=== PATIENT | male | born 1950 | race Caucasian/White ===

== ENCOUNTER 2016-08-14 05:44 | Day surgery (SDC) | payer MEDICARE, BC ==
[2016-08-14] MEDS ORDERED: Lactated Ringers 1,000 ML IV SCH (06:30)
[2016-08-14] MEDS ORDERED: EPINEPHrine 1:1000 1 MG/ML SDV ONE (06:59)
[2016-08-14] MEDS ORDERED: Bupivacaine 0.5%/EPINEPHrine 1:200,000 50 ML MDV ONE (06:59)
[2016-08-14] MEDS ORDERED: Midazolam 1 MG/ML 2 ML SDV ONE (07:07)
[2016-08-14] MEDS ORDERED: fentaNYL 250 MCG/5 ML SDV ONE (07:07)
[2016-08-14] MEDS ORDERED: Rocuronium 50 MG/5 ML Vial ONE (07:07)
[2016-08-14] MEDS ORDERED: Propofol 200 MG/20 ML SDV ONE (07:07)
[2016-08-14] MEDS ORDERED: Ondansetron 4 MG/2 ML SDV ONE (07:07)
[2016-08-14] MEDS ORDERED: Succinylcholine/Normal Saline 200 MG/10 ML Syringe ONE (07:07)
[2016-08-14] MEDS ORDERED: Dexamethasone 4 MG/ML SDV ONE (07:07)
[2016-08-14] MEDS ORDERED: Neostigmine Methylsulfate 1 MG/ML 5 ML Syringe ONE (07:08)
[2016-08-14] MEDS ORDERED: Clindamycin Phosphate 900 MG in Sodium Chloride 0.9% 100 ML IV ONE (07:30)
[2016-08-14] MEDS ORDERED: Hydrocortisone Sodium Succinate 100 MG/2 ML SDV ONE (07:50)
[2016-08-14] MEDS ORDERED: Lactated Ringers 1,000 ML ONE (08:56)
[2016-08-14] MEDS ORDERED: Povidone-Iodine 10% Soln 118.25 ML Bottle ONE (09:40)
--- NOTE | 2016-08-14 11:58 | OR ---
DATE OF PROCEDURE: 08/14/2016 PREOPERATIVE DIAGNOSIS: Left rotator cuff tear and proximal biceps rupture and impingement POSTOPERATIVE DIAGNOSIS: Left rotator cuff tear and proximal biceps rupture and impingement syndrome. PROCEDURE: Left shoulder arthroscopy with subacromial decompression, open rotator cuff tear repair, and proximal biceps tenodesis. ANESTHESIA: General endotracheal intubation. FLUID: Lactated Ringer solution. ESTIMATED BLOOD LOSS: 25 mL. COMPLICATIONS: None. SPECIMEN: None. DISCHARGE DISPOSITION: Stable to PACU. INSTRUMENTATION: SpeedBridge 4.75 x 19.5 mm BioComposite SwiveLock anchors and a BioComposite distal biceps repair, but even though we are doing a proximal biceps repair. HISTORY AND INDICATIONS: The patient was seen preoperatively in the clinic. He actually got his hand caught in a gate and then suffered an injury to his left shoulder. We did try nonoperative treatment including injections. This did not help, even with physical therapy. We then obtained an MRI, confirming the above-mentioned diagnosis. Risks and benefits of the procedure were explained to the patient. Informed consent was obtained. DESCRIPTION OF PROCEDURE: The patient was seen preoperatively by myself and the anesthesia staff in the preop holding area where the operative site was marked. He was brought to the operative suite by the anesthesia staff where general anesthesia was administered. He was placed into a beach chair position. All extremities were found to be well padded. The left upper extremity was then prepped and draped in a sterile manner. Time-out was called identifying the correct patient, the correct procedure, the correct site, and antibiotics for an appropriate period of time. The clavicle and acromion were marked as well as the coracoid process. A posterior portal was then made and a lateral portal was made to enter the subacromial space. A shaver was used to remove any bursal tissue. A wand was used to remove bursal tissue off the acromion. I then used a bur to shave off the inferior margin of the acromion. Bleeding was controlled with the cautery wand. I then entered the joint with the trocar, and then using a spinal needle, I identified an area to enter the joint. The biceps tendon was absent within the joint. The subscapularis was identified and found to be in good position. The humeral head had a good articular surface. I then removed the scope and then closed my portals with 3-0 nylon in a horizontal mattress manner. I then identified the anterior lateral edge of the acromion and then carried an incision 5 mm distal. I then carried the incision through the biceps between the raphe, between the anterior and middle thirds of the deltoid, and I carried this 4 cm as to avoid injuring the axillary nerve and then placed a stay suture distally. I then was able to easily identify the rotator cuff. I used a Boston retractor at times as well as a the Gelpi for visualization. I placed my 2 medial anchors and then using a free needle rimmed those through the tendon and then approximated where I would like to put my lateral row of anchors. I then placed the lateral row of anchors and then closed the rotator cuff in a double row fashion. I then used one of the sutures that was not used on the anchor, and using a free needle, I placed several horizontal mattress sutures through the edge of the rotator cuff to its insertion along its edge where there was some extra cuff tissue just for more of a marginal convergence type repair as well as the strengthen our rotator cuff repair. After this had been accomplished, we then closed the deltoid with 2-0 Vicryl sutures in an interrupted [id number] manner and then closed that incision with 2-0 subcutaneous Vicryl sutures. I then focused on our biceps tenodesis. I made an incision over the edge of the inferior margin of the pectoralis major distally and then controlled both bleeding with Bovie electrocautery. I then used a Boston retractors for the deep tissue retraction and then used an Army-Ozone to superiorize the pectoralis major to its inferior border. I then used a Bovie to dissect through the inferior margin of the pectoralis for approximately 1 cm as is commonly done in a total shoulder for visualization. I was able to palpate the biceps tendon and then after making sure that this in fact ran up into the groove for that was not another structure coffee maker servicer the tendon bringing it out of the wound and then placed a stay suture with a free needle. I was unable to release the biceps tendon at that portion, so I very carefully used the Barrett scissors and went up along the tendon length anteriorly and posteriorly to free it up and then cut it more proximally. I brought this out of the wound and then using a Beath needle placed whipstitches in the biceps tendon. I then sized a 6 mm. We then bovied an area in the distal bicipital groove. I then placed a guidewire through this portion bicortically and then removed the guidewire and then drilled a 6 mm hole with the reamer through the anterior cortex. I then placed our strands from the Beath needle through the biceps repair button as instructed in the technique, and then under tension using the guide placed it through the far cortex and put it under tension. This provided good fixation. While under tension with one strand, I then took a free needle with the other strand and then sutured it to the biceps tendon at its insertion into the anterior cortex and then cut that. I then copiously irrigated with saline and then closed with 2-0 Vicryl subcutaneous sutures. We then washed the wound with wet and dry laps and then placed Dermabond and then Betadine-soaked Adaptic followed by sponges and Medipore tape. The patient was then allowed to awaken from general anesthesia and taken to the PACU in stable condition. Lennox Lopez DO /[id number] MTDD
[2016-08-14 12:39] VITALS: BP 143/94
[2016-08-14] MEDS ORDERED: Acetaminophen/oxyCODONE 325-5 MG Tab PO ONE (13:40)
== END 2016-08-14 14:55 | disposition home or self-care (01) ==
LOC: JP.SDS 05:44
PROVIDERS: ATTEND Orthopaedic Surgery
DX: M75.102 Unspecified rotator cuff tear or rupture of left shoulder, not specified as traumatic (principal); M25.312 Other instability, left shoulder; S46.112A Strain of muscle, fascia and tendon of long head of biceps, left arm, initial encounter; E78.00 Pure hypercholesterolemia, unspecified; J44.9 Chronic obstructive pulmonary disease, unspecified; J45.909 Unspecified asthma, uncomplicated; K21.9 Gastro-esophageal reflux disease without esophagitis; Z79.82 Long term (current) use of aspirin; Z79.899 Other long term (current) drug therapy; N42.9 Disorder of prostate, unspecified; Z88.0 Allergy status to penicillin; X58.XXXA Exposure to other specified factors, initial encounter; Z88.8 Allergy status to other drugs, medicaments and biological substances
CPT/HCPCS: 23410; 29826; 29828; 36415; 80053; 85027; A9270; C1713; J0171; J1100; J1720; J2250; J2405; J2704; J3010; J7120; 23430

== ENCOUNTER 2016-08-21 17:18 | Emergency (ER) | payer MEDICARE, BC ==
[2016-08-21] MEDS ORDERED: Sodium Chloride 0.9% 10 ML Syringe FLUSH PRN (18:18)
--- NOTE | 2016-08-21 18:35 | EDM.PDOC ---
ED HPI RENAL/ - General Chief Complaint: Genitourinary Problem Stated Complaint: UNABLE TO URINATE Time Seen by Provider: 08/21/16 18:20 Source: Reports: Patient, Old records, RN notes reviewed History Limitations: Reports: No limitations - History of Present Illness INITIAL COMMENTS - FREE TEXT/NARRATIVE: Brought in by his Chief complaint Chills, difficulty urinating HPI 65-year-old male with history of prostatic enlargement, treated with oral prostatic medications but no prostate surgery, normally has seen in emergency every 30-60 minutes. However since midnight, he's had lot more difficulty urinating, if he forces urine and he cannot go at all. No dysuria, but he continues to have frequency and urgency and incomplete emptying. He is 1 week post left rotator cuff surgery repair and bicipital tendon repair, injured in the accident in June of this year. No problems with the surgery, he's been taking his oral pain medications one every 6 hours and the pain has been improving. However last night was time for dressing change which was considerably difficult because of the appearance of the tape. The wound itself appeared to be dry there was no foul drainage and the pain is minimal at the incision although there is a lot of discomfort with removing the tape. A vigorous he got upset from the stress of removing the tape. During the night he vomited multiple times, last vomited this morning, decreased appetite all day although he's been able to drink fluids. No chills this evening. Has chronic cough, feels a bit more short of breath than usual. His post be on oxygen all the time but generally uses at night only during the day when he feels the need to. No leg pain or swelling. No cold symptoms Notes some lightheadedness and feeling a bit weak when he is up and walking around this evening. Has had for kidney stones previously all passed spontaneously some at home and some with medication - Related Data Allergies/ADRs: Allergies Allergy/AdvReac Type Severity Reaction Status Date / Time hydrocodone Allergy Itching Verified 08/21/16 18:04 Penicillins Allergy Rash Verified 08/21/16 18:04 shrimp Allergy Nausea and Verified 08/21/16 18:04 Vomiting ibuprofen AdvReac Nausea Verified 08/21/16 18:04 lansoprazole [From Prevacid] AdvReac Diarrhea Verified 08/21/16 18:04 ranitidine HCl [From Zantac] AdvReac Diarrhea Verified 08/21/16 18:04 perch Allergy Nausea and Uncoded 08/21/16 18:04 Vomiting pickle weinstein Allergy Nausea and Uncoded 08/21/16 18:04 Vomiting walleye Allergy Nausea and Uncoded 08/21/16 18:04 Vomiting Home Meds: Home Meds Aspirin 650 mg PO ASDIRECTED PRN 05/06/13 [History] Budesonide/Formoterol [Symbicort 160-4.5 MCG] 2 puff INH BID 05/06/13 [History] Fexofenadine [Purnima] 60 mg PO DAILY 05/06/13 [History] Furosemide [Lasix] 20 mg PO DAILY 05/06/13 [History] Levalbuterol HCl [Xopenex] 1.25 ampule NEB Q4HRRT PRN 05/06/13 [History] Montelukast [Singulair] 10 mg PO DAILY 05/06/13 [History] Multivitamin [Multi Vitamin Daily] 1 each PO DAILY 05/06/13 [History] Naproxen Sodium [Aleve] 220 mg PO Q12H PRN 05/06/13 [History] Terazosin [Hytrin] 4 mg PO BEDTIME 05/06/13 [History] predniSONE [Prednisone] 10 mg PO DAILY 05/06/13 [History] Albuterol Sulfate [Proair Hfa] 2 puff IH QID 08/13/16 [History] Albuterol [Proventil Neb Soln] 2.5 mg IH Q4H PRN 08/13/16 [History] Doxycycline [Doxycycline Hyclate] 100 mg PO ASDIRECTED 08/13/16 [History] Esomeprazole [NexIUM] 20 mg PO DAILY 08/13/16 [History] Gluc 2KCl/Chondr/Narendra Hy/Hy Ac [Glucosamine & Chondroitin Cap] 1 tab PO DAILY [History] Oxybutynin Chloride [Ditropan Xl] 5 mg PO DAILY 08/13/16 [History] Testosterone Cypionate 200 mg IM ASDIRECTED 08/13/16 [History] Umeclidinium [place] [Incruse Ellipta] 1 puff IH DAILY 08/13/16 [History] Sulfamethoxazole/Trimethoprim [Bactrim Ds Tablet] 1 each PO BID #20 tablet 08/21 [Rx] Past Medical History HEENT History: Reports: Allergic rhinitis, Cataract, Impaired vision Cardiovascular History: Reports: Arrhythmia, High cholesterol Respiratory History: Reports: Asthma, COPD Gastrointestinal History: Reports: Colon polyp, GERD, Other (see below) Other Gastrointestinal History: acid reflux Genitourinary History: Reports: Prostate disorder, Renal calculus Musculoskeletal History: Reports: Fracture, Other (see below) Other Musculoskeletal History: wrist fx r great toe fx left shoulder Dermatologic History: Reports: Eczema - Infectious Disease History Infectious Disease History: Reports: Chicken pox, Measles, Mumps, Shingles - Past Surgical History HEENT Surgical History: Reports: Tonsillectomy Cardiovascular Surgical History: Reports: None Respiratory Surgical History: Reports: None GI Surgical History: Reports: None, Colonoscopy, EGD, Hernia, abdominal, Hernia , inguinal Male Surgical History: Reports: None Musculoskeletal Surgical History: Reports: Amputation, Shoulder surgery, Other ( see below) Other Musculoskeletal Surgeries/Procedures:: l MIDDLE FINGER AMPUTATION Dermatological Surgical History: Reports: None Social & Family History - Tobacco Use Smoking Status *Q: Former Smoker Years of Tobacco use: 20 Packs/Tins Daily: 1 Used Tobacco, but Quit: Yes Month Tobacco Last Used: May Hand Smoke Exposure: No - Caffeine Use Caffeine Use: Reports: Coffee - Alcohol Use Days Per Week of Alcohol Use: 2 Number of Drinks Per Day: 2 Total Drinks Per Week: 4 - Recreational Drug Use Recreational Drug Use: No ED ROS GENERAL - Review of Systems Review Of Systems: See Below Constitutional: Reports: fever, chills, weakness, decreased appetite. Denies: diaphoresis HEENT: Reports: No symptoms Respiratory: Reports: Shortness of Breath, Wheezing, Cough Cardiovascular: Reports: No symptoms Endocrine: Reports: no symptoms GI/Abdominal: Reports: Nausea, Vomiting. Denies: Abdominal pain, Diarrhea : Reports: frequency, urgency, urinary retention, other (Hesitancy). Denies: dysuria, flank pain Musculoskeletal: Reports: shoulder pain (Postop left shoulder, mild) Skin: Reports: no symptoms Neurological: Reports: Weakness. Denies: Confusion, Headache, Gait Disturbance Psychiatric: Reports: No symptoms Hematologic/Lymphatic: Reports: no symptoms Immunologic: Reports: no symptoms ED EXAM, RENAL/ - Physical Exam Exam: See Below Exam Limited By: No limitations General Appearance: alert, mild distress, other (Pleasant alert talkative, no difficulty speaking or breathing although he does have occasional wheezing cough , mild tachycardia and fever present) Eye Exam: bilateral eye: normal inspection Ears: normal external exam Nose: normal inspection, normal mucosa Throat/Mouth: Normal inspection, Normal oropharynx, Normal voice Head: atraumatic, normocephalic Neck: normal inspection, supple Respiratory/Chest: no accessory muscle use, chest non-tender, wheezing ( Vocational and coughing occasional), prolonged expiration Cardiovascular: regular rate, rhythm, no murmur, tachycardia, other (No edema) GI/Abdominal: normal bowel sounds, soft, non tender, no distention (Male) Exam: Other (Bladder scan about 2 and 60 mL before and after urination ) Extremities: normal inspection (Apart from brace left shoulder). No: pedal edema, Jen's Sign, leg pain, increased warmth Neurological: alert, oriented, no motor/sensory deficits Psychiatric: normal affect, normal mood Skin Exam: Warm, Dry, Normal color, No rash Lymphatic: no adenopathy Course - Vital Signs Last Recorded V/S: Last Vital Signs Temp 39.6 C H 08/21/16 20:18 Pulse 109 H 08/21/16 20:18 Resp 16 08/21/16 20:18 BP 124/79 08/21/16 20:18 Pulse Ox 94 L 08/21/16 20:18 - Orders/Labs/Meds Orders: Active Orders 24 hr Category Date Time Status Chest 2V [CR] Stat Exams 08/21/16 18:42 Taken CULTURE BLOOD [BC] Urgent Lab 08/21/16 18:30 Received CULTURE BLOOD [BC] Urgent Lab 08/21/16 18:40 Received CULTURE URINE [RM] Stat Lab 08/21/16 18:27 Received Blood Culture x2 Reflex Set [OM.PC] Urgent Oth 08/21/16 18:18 Ordered Saline Lock Insert [OM.PC] Stat Oth 08/21/16 18:18 Ordered Labs: Laboratory Tests 08/21/16 08/21/16 08/21/16 Range/Units 18:21 18:30 18:30 WBC 11.3 H (4.5-11.0) K/uL RBC 5.60 (4.30-5.90) M/uL Hgb 15.0 (12.0-15.0) g/dL Hct 47.5 (40.0-54.0) % MCV 85 (80-98) fL MCH 27 (27-31) pg MCHC 32 (32-36) % Plt Count 280 (150-400) K/uL Sodium 137 L (140-148) mmol/L Potassium 4.4 (3.6-5.2) mmol/L Chloride 102 (100-108) mmol/L Carbon Dioxide 27 (21-32) mmol/L Anion Gap 12.4 (5.0-14.0) mmol/L BUN 17 (7-18) mg/dL Creatinine 1.1 (0.8-1.3) mg/dL Est Cr Clr Drug Dosing 59.61 mL/min Estimated GFR (MDRD) > 60 (>60) Glucose 111 H (74-106) mg/dL Lactic Acid (0.4-2.0) mmol/L Calcium 8.6 (8.5-10.1) mg/dL Urine Color Yellow Urine Appearance Clear Urine pH 6.0 (4.5-8.0) Ur Specific Topping 1.020 (1.008-1.030) Urine Protein Negative (NEGATIVE) mg/dL Urine Glucose (UA) Normal (NEGATIVE) mg/dL Urine Ketones Negative (NEGATIVE) mg/dL Urine Occult Blood Negative (NEGATIVE) Urine Nitrite Negative (NEGAITVE) Urine Bilirubin Negative (NEGATIVE) Urine Urobilinogen Normal (NORMAL) mg/dL Ur Leukocyte Esterase Negative (NEGATIVE) Urine RBC 0-5 (0-5) Urine WBC 0-5 (0-5) Ur Epithelial Cells Not seen Amorphous Sediment Not seen Urine Bacteria Not seen Urine Mucus Not seen 08/21/16 Range/Units 18:30 WBC (4.5-11.0) K/uL RBC (4.30-5.90) M/uL Hgb (12.0-15.0) g/dL Hct (40.0-54.0) % MCV (80-98) fL MCH (27-31) pg MCHC (32-36) % Plt Count (150-400) K/uL Sodium (140-148) mmol/L Potassium (3.6-5.2) mmol/L Chloride (100-108) mmol/L Carbon Dioxide (21-32) mmol/L Anion Gap (5.0-14.0) mmol/L BUN (7-18) mg/dL Creatinine (0.8-1.3) mg/dL Est Cr Clr Drug Dosing mL/min Estimated GFR (MDRD) (>60) Glucose (74-106) mg/dL Lactic Acid 0.9 (0.4-2.0) mmol/L Calcium (8.5-10.1) mg/dL Urine Color Urine Appearance Urine pH (4.5-8.0) Ur Specific Topping (1.008-1.030) Urine Protein (NEGATIVE) mg/dL Urine Glucose (UA) (NEGATIVE) mg/dL Urine Ketones (NEGATIVE) mg/dL Urine Occult Blood (NEGATIVE) Urine Nitrite (NEGAITVE) Urine Bilirubin (NEGATIVE) Urine Urobilinogen (NORMAL) mg/dL Ur Leukocyte Esterase (NEGATIVE) Urine RBC (0-5) Urine WBC (0-5) Ur Epithelial Cells Amorphous Sediment Urine Bacteria Urine Mucus Meds: Medications Discontinued Medications Generic Name Dose Route Start Last Admin Trade Name Freq PRN Reason Stop Dose Admin Acetaminophen 1,000 mg 08/21/16 20:15 08/21/16 20:27 Tylenol Extra Strength PO 08/21/16 20:16 1,000 mg ONETIME ONE Administration Sodium Chloride 1,000 mls @ 250 mls/hr 08/21/16 18:45 08/21/16 19:24 Normal Saline IV 250 mls/hr ASDIRECTED RENEA Administration Sodium Chloride 10 ml 08/21/16 18:18 Saline Flush FLUSH ASDIRECTED PRN Keep Vein Open - Re-Assessments/Exams Free Text/Narrative Re-Assessment/Exam: 08/21/16 19:12 65-year-old male, 1 week post left shoulder surgery, presenting with urinary hesitancy and urgency as well as frequency, some of these symptoms are ongoing, also fever chills nausea or vomiting during the night. Examination is reassuring Normal saline IV Acetaminophen 1 thousand milligrams by mouth for fever WBC 11.3 hemoglobin 15.0 Electrolytes creatinine normal glucose 111 except sodium 137 Lactate normal 0.9 Urinalysis normal Chest x-ray negative by my interpretation for any acute acute changes Assessment postoperative fever Vomiting Possibly a prostate infection, no evidence of urinary infection on urinalysis, but he is experiencing some increased hesitancy and difficulty voiding Does have some degree of retention at about 250 mL Start trimethoprim/sulfamethoxazole Followup primary care this week Get checked sooner if symptoms are worsening 08/21/16 22:22 Departure - Departure Time of Disposition: 20:05 Disposition: Home, Self-Care 01 Condition: good Clinical Impression: Postoperative fever, Urinary hesitancy due to benign prostatic hyperplasia Prescriptions: Sulfamethoxazole/Trimethoprim [Bactrim Ds Tablet] 1 each PO BID #20 tablet Instructions: Benign Prostatic Hyperplasia, Prostatitis, [id number] Referrals: Bimal Tineo MD [Primary Care Provider] - Forms: ED Department Discharge Additional Instructions: Possible urinary tract or prostate infection for which you were started on antibiotics Blood cultures and urine culture should be returning within 2-3 days Followup with your clinic 3 days Return to emergency if worsening symptoms such as recurrent vomiting, high fever , weakness or lethargy - My Orders Last 24 Hours: My Active Orders 08/21/16 18:18 Blood Culture x2 Reflex Set [OM.PC] Urgent Saline Lock Insert [OM.PC] Stat 08/21/16 18:27 CULTURE URINE [RM] Stat 08/21/16 18:30 CULTURE BLOOD [BC] Urgent 08/21/16 18:40 CULTURE BLOOD [BC] Urgent 08/21/16 18:42 Chest 2V [CR] Stat - Assessment/Plan Last 24 Hours: My Active Orders 08/21/16 18:18 Blood Culture x2 Reflex Set [OM.PC] Urgent Saline Lock Insert [OM.PC] Stat 08/21/16 18:27 CULTURE URINE [RM] Stat 08/21/16 18:30 CULTURE BLOOD [BC] Urgent 08/21/16 18:40 CULTURE BLOOD [BC] Urgent 08/21/16 18:42 Chest 2V [CR] Stat
[2016-08-21] MEDS ORDERED: Sodium Chloride 0.9% 1,000 ML IV SCH (18:45)
[2016-08-21] MEDS ORDERED: Acetaminophen 500 MG Tab PO ONE (20:15)
[2016-08-21 20:19] VITALS: BP 124/79
--- NOTE | 2016-08-22 08:36 | CR ---
Chest 2V HISTORY: post op fever and cough. copd COMPARISON: 07/08/2016 FINDINGS: Lungs appear clear and normally aerated. Cardiomediastinal silhouette is within normal limits. No va scular redistribution or pleural fluid can be seen. Bony structures and soft tissues are unremarkabl e. IMPRESSION: No acute chest abnormality or significant interval change is identified.
== END 2016-08-21 20:30 | disposition home or self-care (01) ==
LOC: JP.ED 17:18
DX: N40.1 Benign prostatic hyperplasia with lower urinary tract symptoms (principal); R39.11 Hesitancy of micturition; R50.82 Postprocedural fever; E78.00 Pure hypercholesterolemia, unspecified; J45.909 Unspecified asthma, uncomplicated; J44.9 Chronic obstructive pulmonary disease, unspecified; K21.9 Gastro-esophageal reflux disease without esophagitis; Z98.890 Other specified postprocedural states; Z87.891 Personal history of nicotine dependence; Z79.82 Long term (current) use of aspirin; Z79.899 Other long term (current) drug therapy; Z88.0 Allergy status to penicillin; Z88.5 Allergy status to narcotic agent; Z88.8 Allergy status to other drugs, medicaments and biological substances; Z91.013 Allergy to seafood; Z91.018 Allergy to other foods
CPT/HCPCS: 36415; 71020; 80048; 81001; 83605; 85027; 87040; 87086; 99284; A9270; J7040; 99283

== ENCOUNTER 2016-09-21 07:49 | Day surgery (SDC) | payer MEDICARE, BC ==
[~2016-09-21 07:49] MED LIST: Bupivacaine 0.5% 50 ML MDV ONE; Lidocaine 1% with EPINEPHrine 1:100,000 50 ML MDV ONE
[2016-09-21] MEDS ORDERED: Midazolam 1 MG/ML 2 ML SDV ONE (08:14)
[2016-09-21] MEDS ORDERED: fentaNYL 100 MCG/2 ML SDV ONE (08:14)
[2016-09-21] MEDS ORDERED: Propofol 200 MG/20 ML SDV ONE (08:14)
[2016-09-21] MEDS ORDERED: Sodium Chloride 0.9% 1,000 ML IV SCH (08:30)
[2016-09-21 10:43] VITALS: BP 139/70
--- NOTE | 2016-09-24 07:33 | OR ---
DATE OF PROCEDURE: 09/21/2016 PROCEDURE: 1. Debridement of left shoulder (27350). 2. Wound VAC placement, left shoulder. FINDINGS: Infected shoulder capsule (photos taken in Epic chart). COMPLICATIONS: None. AUDIT CLERK: None. ANESTHESIA: MAC. INDICATIONS: A 66-year-old male with an open shoulder wound with worsening concern for infection. RISK: Risks, benefits, alternatives, and limitations, including, but not limited to infection, bleeding, and osteomyelitis were explained to the patient. They wished to proceed. PROCEDURE IN DETAIL: The patient was placed in right lateral decubitus position. The open wound was measured to be 2.2 cm. This was opened up an additional 1.4 cm to evaluate the shoulder. Immediately, it was noted that the infection is in the shoulder capsule. There appears to be exposure and contamination of minimum of supraspinatus muscle and associated ligaments. This is a wound extending to 6 cm of depth with a width of approximately 3 cm. This was debrided using a 15 blade. This was also cultured. The wound was then closed with 3-0 Vicryl and 4-0 Prolene. A KCI wound VAC was then placed in the wound itself. This was performed in standard fashion by cutting black sponge placed in this and removed or covered with the film and application of track pad. The patient tolerated procedure well. Dwayne Galloway MD /[id number]
== END 2016-09-21 11:20 | disposition home or self-care (01) ==
LOC: JP.SDS 07:49
PROVIDERS: ATTEND Surgery
DX: S41.002D Unspecified open wound of left shoulder, subsequent encounter (principal); Z88.0 Allergy status to penicillin; Z88.8 Allergy status to other drugs, medicaments and biological substances; Z91.013 Allergy to seafood
CPT/HCPCS: 11044; 87070; 87075; 87205; J2250; J2704; J3010; J7040

== ENCOUNTER 2016-10-03 05:52 | Day surgery (SDC) | payer MEDICARE, BC ==
[2016-10-03] MEDS ORDERED: Lactated Ringers 1,000 ML IV SCH (06:45)
[2016-10-03] MEDS ORDERED: Vancomycin 1 GM SDV ONE (06:46)
[2016-10-03] MEDS ORDERED: Povidone-Iodine 10% Soln 118.25 ML Bottle ONE (07:05)
[2016-10-03] MEDS ORDERED: Bupivacaine 0.5%/EPINEPHrine 1:200,000 50 ML MDV ONE (07:05)
[2016-10-03] MEDS ORDERED: Rocuronium 50 MG/5 ML Vial ONE (07:12)
[2016-10-03] MEDS ORDERED: Dexamethasone 4 MG/ML SDV ONE (07:12)
[2016-10-03] MEDS ORDERED: Albuterol/Ipratropium 3.0-0.5 MG/3 ML Neb Soln NEB ONE (07:12)
[2016-10-03] MEDS ORDERED: Ondansetron 4 MG/2 ML SDV ONE (07:12)
[2016-10-03] MEDS ORDERED: Succinylcholine/Normal Saline 200 MG/10 ML Syringe ONE (07:12)
[2016-10-03] MEDS ORDERED: Neostigmine Methylsulfate 1 MG/ML 5 ML Syringe ONE (07:12)
[2016-10-03] MEDS ORDERED: Propofol 200 MG/20 ML SDV ONE (07:12)
[2016-10-03] MEDS ORDERED: fentaNYL 250 MCG/5 ML SDV ONE (07:12)
[2016-10-03] MEDS ORDERED: Clindamycin Phosphate 900 MG in Sodium Chloride 0.9% 100 ML IV ONE (07:30)
[2016-10-03] MEDS ORDERED: Naloxone 0.4 MG/ML SDV ONE (08:33)
[2016-10-03] MEDS ORDERED: fentaNYL 100 MCG/2 ML SDV IVPUSH ONE (08:44)
[2016-10-03 11:14] VITALS: BP 110/71
--- NOTE | 2016-10-03 16:00 | OR ---
DATE OF PROCEDURE: 10/03/2016 PREOPERATIVE DIAGNOSIS: Left shoulder infection, status post rotator cuff repair. POSTOPERATIVE DIAGNOSIS: Left shoulder infection, status post rotator cuff repair. PROCEDURE: 1. Left shoulder re-application of wound VAC. 2. Left shoulder removal of anchors and suture instrumentation. 3. Irrigation and debridement, left shoulder. BROADCAST OPERATIONS ENGINEER: Chari Lacey NP. ANESTHESIA: Laryngeal mask airway, general anesthesia. FLUID: Lactated Ringer solution. ESTIMATED BLOOD LOSS: Zero. COMPLICATIONS: None. SPECIMEN: None. DISCHARGE DISPOSITION: Stable to PACU. HISTORY AND INDICATIONS FOR THE PROCEDURE: The patient is well known to me. He is being treated by Dr. Galloway with a wound VAC. He states his drainage has significantly decreased in the last five days. He has been treated with a PICC line, on antibiotics. He is still covered for the case this morning. Risks and benefits of the procedure were explained to the patient. Informed consent was obtained. DETAILS OF PROCEDURE: The patient was seen preoperatively by myself and the anesthesia staff in the preop holding area, where the operative site was marked. He was brought to the operative suite by the Anesthesia Staff where general anesthesia was administered. He was placed in the beach chair position. All extremities found to be in good position and well padded. The left upper extremity had a wound VAC removed and then removed some of the sofiya. We then prepped and draped the left shoulder in a sterile manner. Time-out was called after identifying the correct patient, correct procedure, the correct site, and antibiotics had been given with appropriate of time. Please note that a Betadine scrub was used instead of our regular scrub due to the open wound. The incision was extended approximately 0.5 cm. The part of the rotator cuff was attached to the anchors. I then used a knife to debride any soft tissue over the anchors and then cut part of the sutures, so we could visualize them. I was able to remove two anchors just by pulling on them. I was then able to unscrew one of them and then part of one came out, and the remainder was unable to be retrieved. All sutures were removed. The rotator cuff was then grasped with two Kochers. I did go above and below with a Lucero, it was still very free and I had no adhesions that I needed to mobilize. There was still good amount of cuff left for repair later on. I then irrigated with 3 L of irrigation and then placed a gram of vancomycin inside the wound followed by the sponge and re-application of the wound VAC. The patient was then allowed to awaken from general anesthesia and transferred to his hospital bed and taken to the PACU in stable condition. Lennox Lopez DO /[id number]
== END 2016-10-03 10:55 | disposition home or self-care (01) ==
LOC: JP.SDS 05:52
PROVIDERS: ATTEND Orthopaedic Surgery
DX: T81.4XXA Infection following a procedure, initial encounter (principal); J44.9 Chronic obstructive pulmonary disease, unspecified; K21.9 Gastro-esophageal reflux disease without esophagitis; E78.00 Pure hypercholesterolemia, unspecified; Z88.0 Allergy status to penicillin; Z88.8 Allergy status to other drugs, medicaments and biological substances; Z91.013 Allergy to seafood; Z91.09 Other allergy status, other than to drugs and biological substances
CPT/HCPCS: 11010; 36415; 80053; 85027; J1100; J2310; J2405; J2704; J3010; J3370; J7030; J7120; J7620; 23030; 97605; S0077

== ENCOUNTER 2016-10-05 10:59 | Emergency (ER) | payer MEDICARE, BC ==
[2016-10-05 11:12] VITALS: BP 156/76
--- NOTE | 2016-10-05 11:49 | EDM.PDOC ---
ED HPI GENERAL MEDICAL PROBLEM - General Chief Complaint: Lower Extremity Injury/Pain Stated Complaint: PAIN IN LEGS AFTER SURGERY ON 10/03 Time Seen by Provider: 10/05/16 11:40 Source of Information: Reports: Patient, Family History Limitations: Reports: No Limitations - History of Present Illness INITIAL COMMENTS - FREE TEXT/NARRATIVE: Initial fall 07/07. Injury to left shoulder with Physical therapy x 1 month. Rotator cuff repair 08/14/[address] Lopez. Developed wound infection postop. Has now had hardware removed and is on IV antibiotics and has a wound vac. Last surgery on 08/03 with full removal of hardware. Has noted thigh pain since Saturday in both legs. Rates pain a 4 while laying still. Pain increases to an 8 with weight bearing. Denies fever or chills. Feels some chest tightness. Did a neb treatment last night with not much improvement. Did use oxygen last night to help him sleep. Does use it intermittently due to COPD. Pt does not smoke. Is not taking aspirin. 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 Treatments, Other (see below) (did take pain meds this am about 6:30) Bilateral Leg Pain Score (Numeric/FACES): 6 - Related Data Allergies Allergy/AdvReac Type Severity Reaction Status Date / Time hydrocodone Allergy Itching Verified 10/05/16 11:25 Penicillins Allergy Rash Verified 10/05/16 11:25 ibuprofen AdvReac Nausea Verified 10/05/16 11:25 lansoprazole [From Prevacid] AdvReac Diarrhea Verified 10/05/16 11:25 ranitidine HCl [From Zantac] AdvReac Diarrhea Verified 10/05/16 11:25 shrimp AdvReac Nausea and Verified 10/05/16 11:25 Vomiting perch AdvReac Nausea and Uncoded 10/03/16 06:20 Vomiting pickle weinstein AdvReac Nausea and Uncoded 10/03/16 06:20 Vomiting walleye AdvReac Nausea and Uncoded 10/03/16 06:20 Vomiting Home Meds: Home Meds Aspirin 650 mg PO ASDIRECTED PRN 05/06/13 [History] Budesonide/Formoterol [Symbicort 160-4.5 MCG] 2 puff INH BID 05/06/13 [History] Fexofenadine [Purnima] 60 mg PO DAILY PRN 05/06/13 [History] Furosemide [Lasix] 20 mg PO DAILY 05/06/13 [History] Montelukast [Singulair] 10 mg PO DAILY PRN 05/06/13 [History] Multivitamin [Multi Vitamin Daily] 1 each PO DAILY 05/06/13 [History] Terazosin [Hytrin] 4 mg PO BEDTIME 05/06/13 [History] Albuterol Sulfate [Proair Hfa] 2 puff IH QID 08/13/16 [History] Albuterol [Proventil Neb Soln] 2.5 mg IH Q4H PRN 08/13/16 [History] Doxycycline [Doxycycline Hyclate] 100 mg PO ASDIRECTED 08/13/16 [History] Esomeprazole [NexIUM] 20 mg PO DAILY 08/13/16 [History] Gluc 2KCl/Chondr/Narendra Hy/Hy Ac [Glucosamine & Chondroitin Cap] 1 tab PO DAILY [History] Oxybutynin Chloride [Ditropan Xl] 5 mg PO DAILY 08/13/16 [History] Testosterone Cypionate 200 mg IM ASDIRECTED 08/13/16 [History] Umeclidinium [place] [Incruse Ellipta] 1 puff IH DAILY 08/13/16 [History] predniSONE [Prednisone] 10 mg PO DAILY 09/21/16 [History] Acetaminophen/oxyCODONE [Percocet 325-5 MG] 1 tab PO Q6H 10/05/16 [History] Ertapenem [INVanz] 1 gm IV DAILY 10/05/16 [History] Past Medical History HEENT History: Reports: Allergic Rhinitis, Cataract, Impaired Vision Cardiovascular History: Reports: Arrhythmia, High Cholesterol Respiratory History: Reports: Asthma, COPD Gastrointestinal History: Reports: Colon Polyp, GERD, Other (See Below) Other Gastrointestinal History: acid reflux Genitourinary History: Reports: Prostate Disorder, Renal Calculus Musculoskeletal History: Reports: Fracture, Other (See Below) Other Musculoskeletal History: wrist fx r great toe fx left shoulder Dermatologic History: Reports: Eczema - Infectious Disease History Infectious Disease History: Reports: Chicken Pox, Measles, Mumps, Rubella, Shingles - Past Surgical History HEENT Surgical History: Reports: Adenoidectomy, Tonsillectomy GI Surgical History: Reports: Colonoscopy, EGD, Hernia, Abdominal, Hernia, Inguinal Musculoskeletal Surgical History: Reports: Amputation, Shoulder Surgery Social & Family History - Family History Family Medical History: Noncontributory - Tobacco Use Smoking Status *Q: Former Smoker Years of Tobacco use: 20 Packs/Tins Daily: 1 Used Tobacco, but Quit: Yes Month Tobacco Last Used: 0 Second Hand Smoke Exposure: No - Caffeine Use Caffeine Use: Reports: Coffee, Soda, Tea - Alcohol Use Days Per Week of Alcohol Use: 2 Number of Drinks Per Day: 2 Total Drinks Per Week: 4 - Recreational Drug Use Recreational Drug Use: No Review of Systems - Review of Systems Review Of Systems: See Below Constitutional: Reports: No Symptoms Eyes: Reports: No Symptoms Ears: Reports: No Symptoms Nose: Reports: No Symptoms Mouth/Throat: Reports: No Symptoms Respiratory: Reports: Shortness of Breath, Cough, Other (needed oxygen last night) Cardiovascular: Reports: No Symptoms GI/Abdominal: Reports: No Symptoms Genitourinary: Reports: No Symptoms Musculoskeletal: Reports: Muscle Pain (bilateral thigh tightness) Skin: Reports: Other (wound vac in place to left shoulder) Neurological: Reports: No Symptoms Psychiatric: Reports: No Symptoms Trauma Exam - Physical Exam Exam: See Below Exam Limited By: No Limitations General Appearance: Reports: Alert, WD/WN, No Apparent Distress Head: Reports: Atraumatic, Normocephalic Ears: Reports: Normal External Exam, Normal Canal, Hearing Grossly Normal, Normal TMs Nose: Reports: Normal Inspection, Normal Mucousa, No Blood Throat/Mouth: Reports: Normal Inspection, Normal Lips, Normal Teeth, Normal Gums , Normal Oropharynx, Normal Voice, No Airway Compromise Neck: Reports: Non-Tender, Full Range of Motion, Normal Alignment, Normal Inspection Respiratory Exam: Reports: No Respiratory Distress, Lungs Clear, Normal Breath Sounds, Other (diminished) Cardiovascular: Reports: Normal Peripheral Pulses, Regular Rate, Rhythm, No Edema, No Gallop, No JVD, No Murmur, No Rub GI/Abdominal: Reports: Normal Bowel Sounds, Soft, Non-Tender, No Organomegaly, No Distention, No Abnormal Bruit, No Mass Extremities: Other (lower legs WNL. No redness or warmth noted. Negative homans. No swelling.) Course - Vital Signs Last Recorded V/S: Last Vital Signs Temp 97.1 F 10/05/16 11:24 Pulse 65 10/05/16 11:24 Resp 14 10/05/16 11:24 BP 156/76 H 10/05/16 11:24 Pulse Ox 95 10/05/16 11:24 - Orders/Labs/Meds Orders: Active Orders 24 hr Category Date Time Status VL Duplex Lwr Ext Veins Comp [US] Stat Exams 10/05/16 11:57 Ordered Labs: Laboratory Tests 10/05/16 10/05/16 10/05/16 Range/Units 11:57 12:13 12:13 WBC 10.4 (4.5-11.0) K/uL RBC 5.31 (4.30-5.90) M/uL Hgb 14.2 (12.0-15.0) g/dL Hct 44.6 (40.0-54.0) % MCV 84 (80-98) fL MCH 27 (27-31) pg MCHC 32 (32-36) % Plt Count 300 (150-400) K/uL Neut % (Auto) 90 H (36-66) % Lymph % (Auto) 6 L (24-44) % [place] % (Auto) 4 (2-6) % Eos % (Auto) 0 L (2-4) % Baso % (Auto) 0 (0-1) % PT (9.5-12.0) sec INR (0.80-1.20) D-Dimer, Quantitative 132 (0.0-400.0) ng/mL Sodium 140 (140-148) mmol/L Potassium 4.2 (3.6-5.2) mmol/L Chloride 106 (100-108) mmol/L Carbon Dioxide 26 (21-32) mmol/L Anion Gap 8.4 (5.0-14.0) mmol/L BUN 8 (7-18) mg/dL Creatinine 1.0 (0.8-1.3) mg/dL Est Cr Clr Drug Dosing 64.69 mL/min Estimated GFR (MDRD) > 60 (>60) Glucose 98 (74-106) mg/dL Calcium 8.6 (8.5-10.1) mg/dL 10/05/16 Range/Units 12:13 WBC (4.5-11.0) K/uL RBC (4.30-5.90) M/uL Hgb (12.0-15.0) g/dL Hct (40.0-54.0) % MCV (80-98) fL MCH (27-31) pg MCHC (32-36) % Plt Count (150-400) K/uL Neut % (Auto) (36-66) % Lymph % (Auto) (24-44) % [place] % (Auto) (2-6) % Eos % (Auto) (2-4) % Baso % (Auto) (0-1) % PT 10.3 (9.5-12.0) sec INR 0.97 (0.80-1.20) D-Dimer, Quantitative (0.0-400.0) ng/mL Sodium (140-148) mmol/L Potassium (3.6-5.2) mmol/L Chloride (100-108) mmol/L Carbon Dioxide (21-32) mmol/L Anion Gap (5.0-14.0) mmol/L BUN (7-18) mg/dL Creatinine (0.8-1.3) mg/dL Est Cr Clr Drug Dosing mL/min Estimated GFR (MDRD) (>60) Glucose (74-106) mg/dL Calcium (8.5-10.1) mg/dL Departure - Departure Time of Disposition: 12:59 Disposition: Home, Self-Care 01 Condition: good Clinical Impression: Leg pain, bilateral - Discharge Information Instructions: Muscle Strain, [id number] Referrals: Bimal Tineo MD [Primary Care Provider] - Forms: ED Department Discharge Additional Instructions: Bilateral venous dopplers to lower legs normal today per assistant professor of radiology. CBC, BMP, INR and D-dimer normal. Feel like pain is most likely muscular in nature. Encouraged stretching, walking and ice to area. Continue current pain meds and treatment for COPD. Pt request muscle relaxant. RX given for Cyclobenzaprine 10mg po TID as needed. Pt to continue current wound treatments and directions. Reviewed findings with pt and spouse. Voice understanding. Reviewed s/s of DVT as well which would warrant closer followup. - Problem List & Annotations (1) Leg pain, bilateral SNOMED Code(s): 97406076 Code(s): M79.604 - PAIN IN RIGHT LEG; M79.605 - PAIN IN LEFT LEG Status: Acute Priority: Medium Current Visit: Yes - Problem List Review Problem List Initiated/Reviewed/Updated: Yes - My Orders Last 24 Hours: My Active Orders 10/05/16 11:57 VL Duplex Lwr Ext Veins Comp [US] Stat - Assessment/Plan Last 24 Hours: My Active Orders 10/05/16 11:57 VL Duplex Lwr Ext Veins Comp [US] Stat
--- NOTE | 2016-10-05 13:41 | US ---
VL Duplex Lwr Ext Veins Comp HISTORY: bilateral thigh pain, postop FINDINGS: Deep venous system of both the right and left lower extremity demonstrates normal blood flow and com pressibility throughout. Normal Doppler waveform variation is seen with respiration and calf elsa hay. No color flow abnormality can be seen. IMPRESSION: No sonographic evidence for DVT in either the right or left lower extremity.
== END 2016-10-05 13:49 | disposition home or self-care (01) ==
LOC: JP.ED 10:59
DX: M79.652 Pain in left thigh (principal); M79.651 Pain in right thigh; E78.00 Pure hypercholesterolemia, unspecified; J45.909 Unspecified asthma, uncomplicated; J44.9 Chronic obstructive pulmonary disease, unspecified; K21.9 Gastro-esophageal reflux disease without esophagitis; Z88.0 Allergy status to penicillin; Z88.8 Allergy status to other drugs, medicaments and biological substances; Z88.5 Allergy status to narcotic agent; Z91.013 Allergy to seafood; Z79.82 Long term (current) use of aspirin; Z79.899 Other long term (current) drug therapy; Z98.890 Other specified postprocedural states; Z87.891 Personal history of nicotine dependence
CPT/HCPCS: 36415; 80048; 85025; 85379; 85610; 93970; 93970-26; 99283; 99284-25

== ENCOUNTER 2016-11-02 08:25 | Day surgery (SDC) | payer MEDICARE, BC ==
[~2016-11-02 08:25] MED LIST changes: -Bupivacaine 0.5% 50 ML MDV ONE; +Bupivacaine 0.5%/EPINEPHrine 1:200,000 50 ML MDV ONE; +Lidocaine 1% 20 ML MDV ONE; -Lidocaine 1% with EPINEPHrine 1:100,000 50 ML MDV ONE
[2016-11-02] MEDS ORDERED: Sodium Chloride 0.9% 1,000 ML IV SCH (09:00)
[2016-11-02] MEDS ORDERED: Ciprofloxacin in D5W 400 MG in Premix Bag 1 BAG IV ONE ×2 (09:30)
[2016-11-02] MEDS ORDERED: Midazolam 1 MG/ML 2 ML SDV ONE (10:36)
[2016-11-02] MEDS ORDERED: Propofol 200 MG/20 ML SDV ONE (10:36)
[2016-11-02] MEDS ORDERED: fentaNYL 100 MCG/2 ML SDV ONE (10:36)
[2016-11-02] MEDS ORDERED: Lidocaine 1% 20 ML MDV INJECT ONE ×2 (10:55)
[2016-11-02] MEDS ORDERED: Meropenem 500 MG SDV ONE (10:56)
[2016-11-02 12:36] VITALS: BP 119/75
--- NOTE | 2016-11-05 07:47 | OR ---
DATE OF PROCEDURE: 11/02/2016 PROCEDURE: 1. O-to-E Z-plasty (56692). 2. Exploration of left shoulder (). FINDINGS: 1. No gross evidence of infection. 2. Exposed shoulder joint. 3. Significant contraction of the wound resulting in high tension. 4. Epiboly of the wound itself. 5. Mild granulation tissue. ANESTHESIA: MAC/local. INDICATIONS: This is a 66-year-old male with a left shoulder injury this has been treated by Orthopedic Surgery in conjunction with myself. Unfortunately, the wound is not healed and the patient required closure of this wound to facilitate Orthopedic Surgery. Risks, benefits, alternatives, and limitations including, but not limited to infection, bleeding, and other injuries along with chronic wound, scar formation, worsening of the wound as far as size and infection status were explained to the patient and wished to proceed. PROCEDURE IN DETAIL: The patient was placed in right lateral decubitus position. The wound was irrigated thoroughly with meropenem irrigation. On inspection of the wound itself, there was noted to be no active infection, but undoubted colonization. Therefore, a 10 round drain will be placed to address any drainage or seroma formation. Due to the epiboly, the edges were cut with a 15 blade and bleeding was controlled with electrocautery. It was obvious that the wound would not be able to be closed with standard simple closure, therefore the O-to-E type Z-plasty performed by extending this in the standard degree fashion on the both wound edges. This allowed the flap to be rotated in a medial to lateral type configuration with decreasing, but not eliminating tension. The wound was then closed with a 3-0 Vicryl sutures in conjunction with horizontal mattress sutures of 3-0 Vicryl and also larger nylon bolster sutures with a 2-0 nylon. Once this was performed and drain was sutured into place. After the plasty formation, there was significantly decreased tension on the wound. Dressings were applied. The patient tolerated the procedure well. Dwayne Galloway MD /[id number]
== END 2016-11-02 13:25 | disposition home or self-care (01) ==
LOC: JP.SDS 08:25
PROVIDERS: ATTEND Surgery
DX: T81.89XA Other complications of procedures, not elsewhere classified, initial encounter (principal); J44.9 Chronic obstructive pulmonary disease, unspecified; J45.909 Unspecified asthma, uncomplicated; G47.33 Obstructive sleep apnea (adult) (pediatric); M19.90 Unspecified osteoarthritis, unspecified site; K21.9 Gastro-esophageal reflux disease without esophagitis; E78.5 Hyperlipidemia, unspecified
CPT/HCPCS: 14020; J0744; J2185; J2250; J2704; J3010; J7040

== ENCOUNTER 2016-11-13 11:11 | Day surgery (SDC) | payer MEDICARE, BC ==
[2016-11-13] MEDS: Bupivacaine 0.5%/EPINEPHrine 1:200,000 50 ML MDV ONE ×2 (11:24→12:14)
[2016-11-13] MEDS: Lidocaine 1% 50 ML MDV ONE ×2 (11:25→12:14)
[2016-11-13] MEDS ORDERED: Sodium Chloride 0.9% 1,000 ML IV SCH (11:30)
[2016-11-13] MEDS ORDERED: fentaNYL 100 MCG/2 ML SDV ONE (11:52)
[2016-11-13] MEDS ORDERED: Propofol 200 MG/20 ML SDV ONE (11:52)
[2016-11-13] MEDS ORDERED: Albuterol/Ipratropium 3.0-0.5 MG/3 ML Neb Soln NEB ONE (12:50)
[2016-11-13] MEDS ORDERED: Morphine 2 MG/ML Syringe IVPUSH PRN (12:51)
[2016-11-13 13:53] VITALS: BP 142/92
[2016-11-13] MEDS ORDERED: Acetaminophen/HYDROcodone 325-5 MG Tab PO ONE (14:45)
--- NOTE | 2016-11-15 10:17 | OR ---
DATE OF PROCEDURE: 11/13/2016 PREOPERATIVE DIAGNOSIS: Shoulder Wound POSTOPERATIVE DIAGNOSIS: Shoulder wound PROCEDURES PERFORMED: 1. Opening of recent left shoulder wound. 2. Drain placement. INDICATIONS: This is a 66-year-old male who underwent O-to-E Z-plasty, which was noted to have some erythema today. As his drain stopped putting out, therefore, he requires placement of new drain and evaluation of wound. FINDINGS: 1. Serous fluid noted on the wound itself. No evidence of gross infection. 2. No evidence of wound failure. PROCEDURE IN DETAIL: The patient was placed in right lateral decubitus position. The shoulder was prepped and draped. The previous drain was removed. The wound was interrogated through the previous drain site. This was thoroughly irrigated with approximately 200 mL of fluid. No gross evidence of infection was noted. The drain was then passed via spike from the inferolateral aspect to medial. This was then sutured into place. Additional nylon sutures were placed in the wound. The patient tolerated the procedure well. Dwayne Galloway MD /[id number]
== END 2016-11-13 15:02 | disposition home or self-care (01) ==
LOC: JP.SDS 11:11
PROVIDERS: ATTEND Surgery
DX: S41.002D Unspecified open wound of left shoulder, subsequent encounter (principal); K21.9 Gastro-esophageal reflux disease without esophagitis; E78.00 Pure hypercholesterolemia, unspecified; Z88.0 Allergy status to penicillin; Z88.8 Allergy status to other drugs, medicaments and biological substances; Z91.013 Allergy to seafood; Z91.09 Other allergy status, other than to drugs and biological substances
CPT/HCPCS: 10030; A9270; J2270; J2704; J3010; J7040; J7620

== ENCOUNTER 2016-12-28 06:43 | Day surgery (SDC) | payer MEDICARE, BC ==
[2016-12-28] MEDS ORDERED: Dextrose 5%-Lactated Ringers 1,000 ML IV SCH (07:00)
[2016-12-28] MEDS ORDERED: Propofol 200 MG/20 ML SDV ONE (07:22)
[2016-12-28] MEDS ORDERED: fentaNYL 100 MCG/2 ML SDV ONE (07:22)
[2016-12-28] MEDS ORDERED: Midazolam 1 MG/ML 2 ML SDV ONE (07:22)
[2016-12-28] MEDS ORDERED: Glycopyrrolate 0.2 MG/ML 2 ML SDV IVPUSH ONE (07:30)
[2016-12-28 10:16] VITALS: BP 158/101
--- NOTE | 2017-01-01 08:57 | OR ---
DATE OF PROCEDURE: 12/28/2016 PREOPERATIVE DIAGNOSES: 1. History of [place]'s esophagus with clinically worsening gastroesophageal reflux disease. 2. History of diarrhea/frequent loose bowel movements. POSTOPERATIVE DIAGNOSES: 1. History of [place]'s esophagus with worsening gastroesophageal reflux disease. 2. Grossly normal colonoscopy. 3. Stool cultures positive for Clostridium difficile toxin. OPERATIVE PROCEDURE: 1. Esophagogastroduodenoscopy with biopsies of esophagogastric junction for histologic evaluation and biopsies of antrum for CLOtest ([id number]). 2. Flexible colonoscopy with collection of stool for culture and sensitivity and random colorectal biopsies ([id number]). ANESTHESIA: IV sedation. INDICATION FOR PROCEDURE: A 66-year-old presenting with worsening gastroesophageal reflux symptoms, as well as some chronic loose bowel movements and/or diarrhea. Plan is to proceed with upper and lower GI endoscopy with biopsies as indicated. Potential risks of the procedure including bleeding and perforation were discussed, and the patient wishes to proceed. DETAILS OF PROCEDURE: The patient was taken to the operating room and placed in left lateral decubitus position. IV sedation was administered, after which the upper GI endoscope was passed orally through the length of the esophagus into the stomach with retroflexion view of the fundus, thereafter through the pyloric channel and into the proximal duodenum. The patient was noted to have normal hypopharynx, larynx, upper esophageal sphincter. Upon entering the esophageal body, it was notable there was large amount of bile present, indicating ongoing reflux of bile into the esophagus. At the EG junction, there was a small hiatal hernia, but the EG junction was completely wide open with the scope positioned in the distal esophagus, peering in through a wide opening directly into the stomach. At the EG junction, there was a moderate amount of friability and redness and upward extension of the gastroesophageal junction mucosal line consistent with history of [place]'s esophagus. Apart from that, the stomach showed mild redness in the antrum, and the pyloric channel and duodenum were unremarkable. At this point, biopsies were obtained from the antrum to establish the patient's H. pylori status, and then multiple biopsies were obtained from the esophagogastric junction for followup of the [place]'s esophagus. Minimal bleeding from the biopsy sites was seen and the procedure then concluded. Attention was then taken to the colonoscopy. The initial digital rectal exam was performed and was unremarkable. The scope was then passed into the rectum with retroflexion revealing uncomplicated hemorrhoidal columns. The scope was eventually passed to the level of the cecum. The prep was fairly good with there only being a small amount of liquid stool present. Grossly, this exam was entirely normal. Through the course of the exam, a small amount of liquid stool was evacuated and sent for cultures to rule out microscopic colitis. Random colorectal biopsies were obtained from the cecum and down to the level of the rectum and sent for histologic evaluation. Minimal bleeding from the biopsy sites was seen. Colon exam, as mentioned above, was completely normal grossly. Minimal bleeding from biopsy sites was seen and the procedure then concluded. Shortly after the stool specimen had been sent to lab, we were notified that the assay for the Clostridium difficile toxin was positive. The patient will, therefore, be started on vancomycin orally for a 2-week course. We will send him with vancomycin 500 mg t.i.d. x2 weeks. Otherwise, the patient has worsening gastroesophageal reflux symptoms despite the ongoing PPI use, as he is on Nexium 40 mg a day, and would be a potential candidate for Aldo fundoplication. We will see him back this coming Saturday to discuss treatment options. Nilesh Lopez MD /[id number]
== END 2016-12-28 11:10 | disposition home or self-care (01) ==
LOC: JP.SDS 06:43
PROVIDERS: ATTEND Surgery
DX: K21.0 Gastro-esophageal reflux disease with esophagitis (principal); K44.9 Diaphragmatic hernia without obstruction or gangrene; Z88.0 Allergy status to penicillin; E78.00 Pure hypercholesterolemia, unspecified; J44.9 Chronic obstructive pulmonary disease, unspecified; Z91.013 Allergy to seafood; Z88.8 Allergy status to other drugs, medicaments and biological substances; Z87.891 Personal history of nicotine dependence; Z98.890 Other specified postprocedural states
CPT/HCPCS: 43239; 45380; 87046; 87081; 87177; 87209; 87493; 87899; J2250; J2704; J3010; J7042; 88305; J3490

== ENCOUNTER 2018-02-23 19:21 | Emergency (ER) | payer MEDICARE, BC ==
[2018-02-23] MEDS ORDERED: Bacitracin Oint 1 GM U/D Packet TOP ONE (20:03)
[2018-02-23] MEDS ORDERED: Diphtheria,Pertussis(Acell),Tetanus Vaccine 0.5 ML SDV IM ONE (20:03)
--- NOTE | 2018-02-23 20:03 | EDM.PDOC ---
ED HPI GENERAL MEDICAL PROBLEM - General Chief Complaint: Upper Extremity Injury/Pain Stated Complaint: smashed hand in livestock door Time Seen by Provider: 02/23/18 19:30 Source of Information: Reports: Patient History Limitations: Reports: No Limitations - History of Present Illness INITIAL COMMENTS - FREE TEXT/NARRATIVE: Sliding door on a livestock trailer was closed on his rt hand a short while ago. He washed it out and bandaged it. Says tetanus good for another year according to his doc. We think that means 9 years. - Related Data Allergies Allergy/AdvReac Type Severity Reaction Status Date / Time atorvastatin Allergy Cannot Verified 12/28/16 07:25 Remember hydrocodone Allergy Cannot Verified 12/28/16 07:25 Remember Penicillins Allergy Rash Verified 12/28/16 07:25 ibuprofen AdvReac Nausea Verified 12/28/16 07:25 lansoprazole [From Prevacid] AdvReac Diarrhea Verified 12/28/16 07:25 ranitidine HCl [From Zantac] AdvReac Diarrhea Verified 12/28/16 07:25 shrimp AdvReac Nausea and Verified 12/28/16 07:25 Vomiting perch AdvReac Nausea and Uncoded 12/28/16 07:25 Vomiting pickle weinstein AdvReac Nausea and Uncoded 12/28/16 07:25 Vomiting walleye AdvReac Nausea and Uncoded 12/28/16 07:25 Vomiting Home Meds: Home Meds Aspirin 650 mg PO ASDIRECTED PRN 05/06/13 [History] Budesonide/Formoterol [Symbicort 160-4.5 MCG] 2 puff INH BID 05/06/13 [History] Fexofenadine [Purnima] 60 mg PO DAILY PRN 05/06/13 [History] Furosemide [Lasix] 20 mg PO DAILY 05/06/13 [History] Montelukast [Singulair] 10 mg PO DAILY PRN 05/06/13 [History] Multivitamin [Multi Vitamin Daily] 1 each PO DAILY 05/06/13 [History] Terazosin [Hytrin] 4 mg PO BEDTIME 05/06/13 [History] Albuterol Sulfate [Proair Hfa] 2 puff IH QID 08/13/16 [History] Albuterol [Proventil Neb Soln] 2.5 mg IH Q4H PRN 08/13/16 [History] Doxycycline [Doxycycline Hyclate] 100 mg PO ASDIRECTED 08/13/16 [History] Esomeprazole [NexIUM] 20 mg PO DAILY 08/13/16 [History] Oxybutynin Chloride [Ditropan Xl] 5 mg PO DAILY 08/13/16 [History] Testosterone Cypionate 200 mg IM ASDIRECTED 08/13/16 [History] Umeclidinium [place] [Incruse Ellipta] 1 puff IH DAILY 08/13/16 [History] predniSONE [Prednisone] 10 mg PO DAILY 09/21/16 [History] Acetaminophen/HYDROcodone [[place] 325-5 MG] 1 tab PO Q6HR PRN 12/26/16 [History] Rosuvastatin [Crestor] 5 mg PO BEDTIME 12/26/16 [History] Rosuvastatin Calcium 5 mg PO BEDTIME 12/28/16 [History] Past Medical History HEENT History: Reports: Allergic Rhinitis, Cataract, Impaired Vision Cardiovascular History: Reports: Arrhythmia, High Cholesterol Respiratory History: Reports: Asthma, COPD Gastrointestinal History: Reports: Chronic Diarrhea, Colon Polyp, GERD, Other ( See Below) Other Gastrointestinal History: acid reflux Genitourinary History: Reports: Prostate Disorder, Renal Calculus Musculoskeletal History: Reports: Amputation, Arthritis, Fracture, Other (See Below) Other Musculoskeletal History: wrist fx r great toe fx left shoulder Dermatologic History: Reports: Eczema - Infectious Disease History Infectious Disease History: Reports: C-Difficile, Chicken Pox, Measles, Mumps, Shingles - Past Surgical History HEENT Surgical History: Reports: Adenoidectomy, Cataract Surgery, Tonsillectomy Cardiovascular Surgical History: Reports: None Respiratory Surgical History: Reports: None GI Surgical History: Reports: Colonoscopy, EGD, Hernia, Abdominal, Hernia, Inguinal Male Surgical History: Reports: None Musculoskeletal Surgical History: Reports: Amputation, Shoulder Surgery Dermatological Surgical History: Reports: None Social & Family History - Family History Family Medical History: Noncontributory - Caffeine Use Caffeine Use: Reports: Coffee Review of Systems - Review of Systems Review Of Systems: ROS reveals no pertinent complaints other than HPI. ED EXAM, GENERAL - Physical Exam Exam: See Below Exam Limited By: No Limitations General Appearance: Alert, WD/WN, No Apparent Distress Extremities: Other (right hand, about 2 cm lac to palm of hand approx over the mcp joint of ring and little fingers. FROM all fingers. good handgrip. NVT intact. looks clean.) Course - Vital Signs Last Recorded V/S: Last Vital Signs Temp 36.1 C 02/23/18 20:26 Pulse 71 02/23/18 20:26 Resp 14 02/23/18 20:26 BP 138/76 02/23/18 20:26 Pulse Ox 94 L 02/23/18 20:26 - Orders/Labs/Meds Orders: Active Orders 24 hr Category Date Time Status Vaccines to be Administered [RC] PER UNIT ROUTINE Care 02/23/18 20:03 Active Meds: Medications Discontinued Medications Generic Name Dose Route Start Last Admin Trade Name Kavinq PRN Reason Stop Dose Admin Bacitracin 1 dose 02/23/18 20:03 02/23/18 20:28 Bacitracin Oint 1 Gm TOP 02/23/18 20:04 1 dose ONETIME ONE Administration Diphtheria/Tetanus/Acell Pertussis 0.5 ml 02/23/18 20:03 02/23/18 20:29 Adacel IM 02/23/18 20:04 0.5 ml .ONCE ONE Administration Lidocaine HCl 5 ml 02/23/18 20:08 02/23/18 20:29 Xylocaine-Mpf 1% INJECT 02/23/18 20:09 5 ml ONETIME ONE Administration - Re-Assessments/Exams Free Text/Narrative Re-Assessment/Exam: 02/23/18 20:02 adacel given. 02/23/18 20:38 Proceedure: Laceration repair Anesthetixed with 4 ml 1%lidocaine. Scrubbed with Hibiclens and copiously irrigated with saline. Woundis 2 cm. Full thickness. Does not involve any deep structures. Clsoed with running 4/0 nylon. Bacitracin dressing. Departure - Departure Time of Disposition: 20:39 Disposition: Home, Self-Care 01 Condition: Fair Clinical Impression: Laceration of right hand - Discharge Information Referrals: Bimal Tineo MD [Primary Care Provider] - Forms: ED Department Discharge Additional Instructions: Wash with soap and water daily. Apply antibiotic ointment and a keep covered with some type of bandage. Watch for signs of infection. Suture removal in 10 days by your doctor. - My Orders Last 24 Hours: My Active Orders 02/23/18 20:03 Vaccines to be Administered [RC] PER UNIT ROUTINE - Assessment/Plan Last 24 Hours: My Active Orders 02/23/18 20:03 Vaccines to be Administered [RC] PER UNIT ROUTINE
[2018-02-23 20:28] VITALS: BP 138/76
== END 2018-02-23 20:57 | disposition home or self-care (01) ==
LOC: JP.ED 19:21
DX: S61.411A Laceration without foreign body of right hand, initial encounter (principal); J44.9 Chronic obstructive pulmonary disease, unspecified; Z88.8 Allergy status to other drugs, medicaments and biological substances; Z23 Encounter for immunization; Z79.899 Other long term (current) drug therapy; W23.0XXA Caught, crushed, jammed, or pinched between moving objects, initial encounter
CPT/HCPCS: 12001; 90471; 90715; 99283-25

== ENCOUNTER 2018-12-30 06:29 | Day surgery (SDC) | payer MEDICARE, BC ==
[~2018-12-30 06:29] MED LIST changes: +Albuterol/Ipratropium 3.0-0.5 MG/3 ML Neb Soln NEB ONE; -Bupivacaine 0.5%/EPINEPHrine 1:200,000 50 ML MDV ONE; +Dextrose 5%-Lactated Ringers 1,000 ML IV SCH; -Lidocaine 1% 20 ML MDV ONE
[2018-12-30] MEDS ORDERED: fentaNYL 100 MCG/2 ML SDV ONE (07:00)
[2018-12-30] MEDS ORDERED: Albuterol/Ipratropium 3.0-0.5 MG/3 ML Neb Soln NEB ONE (07:00)
[2018-12-30] MEDS ORDERED: Midazolam 1 MG/ML 2 ML SDV ONE (07:00)
[2018-12-30] MEDS ORDERED: Propofol 200 MG/20 ML SDV ONE (07:00)
[2018-12-30] MEDS ORDERED: Dextrose 5%-Lactated Ringers 1,000 ML IV SCH (07:00)
[2018-12-30 09:14] VITALS: BP 120/78; PULSE 73
--- NOTE | 2019-01-07 12:30 | OR ---
DATE OF PROCEDURE: 12/30/2018 PREOPERATIVE DIAGNOSIS: Worsening gastroesophageal reflux disease. POSTOPERATIVE DIAGNOSES: 1. Large hiatal hernia (12 cm) with extensive [place] esophagus, extending roughly 10 cm above upper gastric folds. 2. Small antral polypoid lesion. 3. Moderate antral gastritis. OPERATIVE PROCEDURES: Esophagogastroduodenoscopy with, 1. Biopsies of esophagogastric junction for histologic evaluation. 2. Biopsies of antrum for CLOtest (70785). 3. Gastric polypectomy of lesion within pyloric channel (88830). ANESTHESIA: IV sedation. INDICATION FOR PROCEDURE: This is a 68-year-old presenting with worsening gastroesophageal reflux symptoms. His COPD symptoms also appear to be increasing, which may be related to the worsening reflux. He continues on ongoing medical management. The plan is to proceed with upper GI endoscopy with biopsies as indicated. Potential risks including bleeding and perforation were discussed, and the patient wishes to proceed. DETAILS OF PROCEDURE: The patient was taken to the operating room and placed in a left lateral decubitus position. IV sedation was administered, after which the upper GI endoscope was passed orally through the length of the esophagus, then into the stomach with retroflexion view of the fundus, and thereafter through the pyloric channel and into the proximal duodenum. Findings included quite a bit of redness in the larynx and pharyngeal areas consistent with reflux. As one passed through the upper esophageal sphincter, the upper esophagus appeared to be unremarkable. The patient did however have a large hiatal hernia measuring around 12 cm with extensive upward extension of the gastroesophageal junction mucosal line. This extended roughly 10 cm above the upper gastric folds and would be consistent with probable quite aggressive [place] esophagus. There was no plaquing or stricturing suggestive of obvious neoplasia however. Within the stomach, retroflexion revealed what appeared to be a paraesophageal-type hernia, with there being 2 sections of stomach by a small septum, extending up above the diaphragm. Within the pyloric channel, there was a reddened polypoid lesion. This may be inflammatory, but also could be neoplastic, and there was generalized moderate antral gastritis. Beyond the pyloric channel, the duodenal findings were unremarkable. At this point, initially, biopsies were obtained from the antrum and sent for CLOtest for H pylori. At that point, the polyp was encircled at its base with a snare, excised, and retrieved and sent for histologic evaluation. Finally, multiple biopsies at multiple levels circumferentially areas of probable [place] esophagus. At that point, no bleeding of significance was noted, and the procedure then concluded. The patient was taken to the recovery room in a satisfactory condition. This was clear that the patient probably needs surgical correction of his reflux disease. He has been on longstanding Nexium and despite that has quite aggressive and complicated- appearing esophagitis. We will need to await the biopsies on the antral polyp to make sure that is not neoplastic. If that in fact is neoplastic, he would likely need to have a gastrectomy, which in this case would be a near-total gastrectomy with Felix-en-Y reconstruction, which would also in addition will result in satisfactory control of reflux. If the polyp is inflammatory, we will likely then proceed with a standard Aldo fundoplication. Nilesh Lopez MD /[id number]
== END 2018-12-30 09:35 | disposition home or self-care (01) ==
LOC: JP.SDS 06:29
PROVIDERS: ATTEND Surgery
DX: K21.9 Gastro-esophageal reflux disease without esophagitis (principal); K22.70 Barrett's esophagus without dysplasia; K44.9 Diaphragmatic hernia without obstruction or gangrene; K31.7 Polyp of stomach and duodenum; K31.89 Other diseases of stomach and duodenum; J44.9 Chronic obstructive pulmonary disease, unspecified; J39.2 Other diseases of pharynx; J38.7 Other diseases of larynx; E78.00 Pure hypercholesterolemia, unspecified; Z88.0 Allergy status to penicillin; Z88.5 Allergy status to narcotic agent; Z88.6 Allergy status to analgesic agent; Z88.8 Allergy status to other drugs, medicaments and biological substances; Z91.013 Allergy to seafood
CPT/HCPCS: 43239; 87081; 88305; 94640; J2250; J2704; J3010; J7042; J7620-GY

== ENCOUNTER 2019-01-15 22:03 | Emergency (ER) | payer MEDICARE, BC ==
[2019-01-15 22:19] VITALS: BP 134/77
--- NOTE | 2019-01-15 22:51 | EDM.PDOC ---
ED HPI GENERAL MEDICAL PROBLEM - General Chief Complaint: Head Injury Stated Complaint: FELL AND HIS HEAD AND CUT ON RIGHT ARM Time Seen by Provider: 01/15/19 22:45 Source of Information: Reports: Patient History Limitations: Reports: No Limitations - History of Present Illness INITIAL COMMENTS - FREE TEXT/NARRATIVE: pt arrived after he had a cow hit a gate and the gate hit his forehead and his rt arm. He has a 5 inch laceration on the rt arm. He is also has tenderness in the head.-- occipital area. He had his cook rung and he was not able to get up from the floor. Onset: Today, Sudden Duration: Hour(s): Location: Reports: Head, Neck, Upper Extremity, Right Associated Symptoms: Reports: No Other Symptoms headache Pain Score (Numeric/FACES): 4 - Related Data Allergies Allergy/AdvReac Type Severity Reaction Status Date / Time atorvastatin Allergy Cannot Verified 01/15/19 22:31 Remember hydrocodone Allergy Cannot Verified 01/15/19 22:31 Remember Penicillins Allergy Rash Verified 01/15/19 22:31 ibuprofen AdvReac Nausea Verified 01/15/19 22:31 lansoprazole [From Prevacid] AdvReac Diarrhea Verified 01/15/19 22:31 ranitidine HCl [From Zantac] AdvReac Diarrhea Verified 01/15/19 22:31 shrimp AdvReac Nausea and Verified 01/15/19 22:31 Vomiting perch AdvReac Nausea and Uncoded 01/15/19 22:31 Vomiting pickle weinstein AdvReac Nausea and Uncoded 01/15/19 22:31 Vomiting walleye AdvReac Nausea and Uncoded 01/15/19 22:31 Vomiting Home Meds: Home Meds Budesonide/Formoterol [Symbicort 160-4.5 MCG] 2 puff INH BID 05/06/13 [History] Fexofenadine [Purnima] 60 mg PO DAILY PRN 05/06/13 [History] Montelukast [Singulair] 10 mg PO DAILY PRN 05/06/13 [History] Albuterol Sulfate [Proair Hfa] 2 puff IH QID 08/13/16 [History] Albuterol [Proventil Neb Soln] 2.5 mg IH Q4H PRN 08/13/16 [History] Esomeprazole [NexIUM] 20 mg PO DAILY 08/13/16 [History] Testosterone Cypionate 200 mg IM Q14D 08/13/16 [History] Umeclidinium [place] [Incruse Ellipta] 1 puff IH DAILY 08/13/16 [History] predniSONE [Prednisone] 10 mg PO DAILY 09/21/16 [History] Aspirin [Halfprin] 81 mg PO DAILY 09/09/18 [History] oxyCODONE HCl/Acetaminophen [Percocet 5-325 mg Tablet] 1 each PO Q12HR PRN #14 tablet 09/09/18 [Rx] hydrOXYzine HCl [Atarax] 25 mg PO Q8H PRN #40 tab 09/11/18 [Rx] Arformoterol [Brovana] 2 ml IH BID 12/25/18 [History] Budesonide [Pulmicort] 2 ml IH BID 12/25/18 [History] Ipratropium [Atrovent] 2.5 ml IH TID 12/25/18 [History] Rosuvastatin Calcium 5 mg PO DAILY 12/25/18 [History] Past Medical History HEENT History: Reports: Allergic Rhinitis, Cataract, Impaired Vision Cardiovascular History: Reports: Arrhythmia, High Cholesterol Respiratory History: Reports: Asthma, COPD Gastrointestinal History: Reports: Chronic Diarrhea, Colon Polyp, GERD, Hiatal Hernia Other Gastrointestinal History: acid reflux Genitourinary History: Reports: Prostate Disorder, Renal Calculus Musculoskeletal History: Reports: Amputation, Arthritis, Fracture, Other (See Below) Other Musculoskeletal History: wrist fx r great toe fx left shoulder. R shoulder pain Neurological History: Reports: None Psychiatric History: Reports: None Endocrine/Metabolic History: Reports: None Hematologic History: Reports: None Immunologic History: Reports: None Oncologic (Cancer) History: Reports: None Dermatologic History: Reports: Eczema - Infectious Disease History Infectious Disease History: Reports: Chicken Pox, Measles, Mumps - Past Surgical History HEENT Surgical History: Reports: Adenoidectomy, Cataract Surgery, Tonsillectomy GI Surgical History: Reports: Colonoscopy, EGD, Hernia, Abdominal, Hernia, Inguinal Male Surgical History: Reports: TURP-Transurethral Resection of Prostate Musculoskeletal Surgical History: Reports: Amputation, Shoulder Replacement, Shoulder Surgery Social & Family History - Family History Family Medical History: Noncontributory - Tobacco Use Smoking Status *Q: Former Smoker Used Tobacco, but Quit: Yes Month/Year Tobacco Last Used: 1988 - Caffeine Use Caffeine Use: Reports: Coffee - Recreational Drug Use Recreational Drug Use: No ED ROS GENERAL - Review of Systems Review Of Systems: See Below Constitutional: Reports: No Symptoms HEENT: Reports: No Symptoms Respiratory: Reports: No Symptoms Cardiovascular: Reports: No Symptoms Endocrine: Reports: No Symptoms GI/Abdominal: Reports: No Symptoms : Reports: No Symptoms Musculoskeletal: Reports: Other (pt has pain in back of head and neck. pt is current with is tetanus. ) Skin: Reports: No Symptoms ED EXAM, HEAD INJURY - Physical Exam Exam: See Below Text/Narrative:: pt arrived with a 5 inch laceration on the rt forearm. He was knocked over by a cow. His head was hit in the front by the gate and he fell and hit his occipital area. . He is having pain in post cervical area. i Exam Limited By: No Limitations General Appearance: Alert, Mild Distress Head: Other (pt has swelling on his rt forehead and in the occipital area. pupils are equal and reactive) Ears: Normal TMs Nose: Normal Inspection Throat/Mouth: Normal Inspection Neck: Other (pt is tender in the post cervical area. ) Respiratory: No Respiratory Distress Cardiovascular: Regular Rate, Rhythm GI/Abdominal Exam: Soft, Non-Tender (Male) Exam: Deferred Rectal (Males) Exam: Deferred Back Exam: Normal Inspection Extremities: Other (pt has a 5 inch laceration on the rt forearm. ) Neurologic: Alert, Oriented x 3 Course - Vital Signs Last Recorded V/S: Last Vital Signs Temp 35.9 C 01/15/19 22:39 Pulse 71 01/15/19 22:39 Resp 16 01/15/19 22:39 BP 134/77 01/15/19 22:39 Pulse Ox 96 01/15/19 22:39 - Orders/Labs/Meds Meds: Medications Discontinued Medications Generic Name Dose Route Start Last Admin Trade Name Freq PRN Reason Stop Dose Admin Bacitracin 1 dose 01/15/19 23:01 01/15/19 23:19 Bacitracin Oint 1 Gm TOP 01/15/19 23:02 1 dose ONETIME ONE Administration Lidocaine HCl 20 ml 01/15/19 23:01 01/15/19 23:19 Xylocaine 1% INJECT 01/15/19 23:02 10 ml ONETIME ONE Administration - Re-Assessments/Exams Free Text/Narrative Re-Assessment/Exam: 01/15/19 23:51 Pt had a cat scan of the head and cervical spine was neg. He had a 5 inch laceration deep to the sub q. The area was cleansed well and infiltrated with lidocaine. The wound was closed with 5-0 chromic and 5-0 prolene. The wound was dressed with bacatracin. Departure - Departure Time of Disposition: 23:53 Disposition: Home, Self-Care 01 Condition: Fair Clinical Impression: Laceration, Contusion of head, Cervical paraspinal muscle spasm - Discharge Information Referrals: Bimal Tineo MD [Primary Care Provider] - Forms: ED Department Discharge Care Plan Goals: cool pack to cervical spine, ice to head area, keep wound dry and no further ointments, suture removal in 7-8 days. keflex 500 mg tid for 5 days.
[2019-01-15] MEDS ORDERED: Lidocaine 1% 20 ML MDV INJECT ONE (23:01)
[2019-01-15] MEDS ORDERED: Bacitracin Oint 1 GM U/D Packet TOP ONE (23:01)
--- NOTE | 2019-01-15 23:34 | CRLCT ---
INDICATION: Injury TECHNIQUE: CT head without contrast. COMPARISON: None available FINDINGS: There is mild age-related cortical atrophy. The ventricles are within normal limits for the patient`s age. There is no mass effect or midline shift. There is no loss of tolliver-white differentiation. There is no evidence of an acute intracranial hemorrhage. No acute calvarial fracture is seen. There are small anterior right frontal and posterior right parietal scalp hematomas. There is a small mucosal retention cyst or polyp in the right frontal sinus. There is opacification of few mastoid air cells. The orbital contents appear symmetrical. IMPRESSION: No evidence of an acute intracranial hemorrhage, mass effect or loss of tolliver-white differentiation. Small anterior and posterior scalp hematomas. Dictated by Roberto Dhillon MD @ 01/15/2019 11:33:30 PM Please note that all CT scans at this facility use dose modulation, iterative reconstruction, and/or weight-based dosing when appropriate to reduce radiation dose to as low as reasonably achievable. Dictated by: Roberto Dhillon MD @ 01/15/2019 23:33:35 (Electronically Signed)
--- NOTE | 2019-01-15 23:45 | CRLCT ---
INDICATION: Trauma TECHNIQUE: CT cervical spine without contrast. COMPARISON: None available FINDINGS: Osteopenia is noted. The cervical spine alignment is within normal limits. The craniocervical and atlantoaxial alignments are near anatomical. There is no evidence of acute cervical spine fracture. There is no significant precervical soft tissue swelling. Degenerative changes are noted. There is a prominent calcification in the cervical central canal at the C6 level, which could represent a calcified C6-7 disc extrusion, narrowing the central canal. Areas of bilateral paraspinal soft tissue prominence in the visualized upper thoracic spine appear near fat in attenuation and could represent idiopathic prominent subpleural fat. IMPRESSION: No evidence of an acute cervical spine fracture. Dictated by Roberto Dhillon MD @ 01/15/2019 11:41:27 PM Please note that all CT scans at this facility use dose modulation, iterative reconstruction, and/or weight-based dosing when appropriate to reduce radiation dose to as low as reasonably achievable. Dictated by: Roberto Dhillon MD @ 01/15/2019 23:44:52 (Electronically Signed)
[2019-01-15] MEDS ORDERED: Acetaminophen/oxyCODONE 325-5 MG Tab PO ONE (23:58)
[2019-01-15] MEDS ORDERED: Cephalexin 250 MG Cap PO ONE (23:59)
== END 2019-01-16 00:14 | disposition home or self-care (01) ==
LOC: JP.ED 22:03
DX: S51.811A Laceration without foreign body of right forearm, initial encounter (principal); S00.93XA Contusion of unspecified part of head, initial encounter; M62.838 Other muscle spasm; E78.00 Pure hypercholesterolemia, unspecified; J44.9 Chronic obstructive pulmonary disease, unspecified; Z88.8 Allergy status to other drugs, medicaments and biological substances; Z88.5 Allergy status to narcotic agent; Z88.1 Allergy status to other antibiotic agents; Z88.6 Allergy status to analgesic agent; Z91.013 Allergy to seafood; Z79.899 Other long term (current) drug therapy; Z79.82 Long term (current) use of aspirin; Z87.442 Personal history of urinary calculi; Z87.891 Personal history of nicotine dependence; W22.8XXA Striking against or struck by other objects, initial encounter; W18.39XA Other fall on same level, initial encounter
CPT/HCPCS: 12005; 70450; 72125; 99283; A9270; J2001

== ENCOUNTER 2019-04-01 07:20 | Inpatient (IN) | payer MEDICARE, BC ==
[2019-04-01] MEDS ORDERED: Sodium Chloride 0.9% 10 ML Syringe FLUSH PRN ×2 (07:45→13:49)
[2019-04-01] MEDS ORDERED: Lactated Ringers 1,000 ML IV SCH (07:45)
[2019-04-01] MEDS ORDERED: Ondansetron 4 MG/2 ML SDV IVPUSH ONE (07:46)
[2019-04-01] MEDS ORDERED: Ketorolac 30 MG/ML SDV IVPUSH ONE (07:47)
[2019-04-01] MEDS ORDERED: Ondansetron 4 MG/2 ML SDV ONE (07:48)
--- NOTE | 2019-04-01 07:52 | EDM.PDOC ---
ED HPI GENERAL MEDICAL PROBLEM - General Chief Complaint: Abdominal Pain Stated Complaint: VOMITING BREATHING PROBLEMS Time Seen by Provider: 04/01/19 07:38 Source of Information: Reports: Patient, Family, RN Notes Reviewed History Limitations: Reports: No Limitations - History of Present Illness INITIAL COMMENTS - FREE TEXT/NARRATIVE: 68-year-old gentleman presents emergency department today complaint of shortness of breath and abdominal pain. He has known history of COPD states she' s been dealing with upper respiratory sinus difficulties for the last several weeks did do a trial course of antibiotics he believes it was a azithromycin has 2 days remaining. He states over the last 24 hours she's become more short of breath nausea vomiting and developed abdominal pain other family members have been sick with similar symptoms however his seems to be much worse no fever , - Related Data Allergies Allergy/AdvReac Type Severity Reaction Status Date / Time atorvastatin Allergy Cannot Verified 04/01/19 07:25 Remember hydrocodone Allergy Cannot Verified 04/01/19 07:25 Remember Penicillins Allergy Rash Verified 04/01/19 07:25 ibuprofen AdvReac Nausea Verified 04/01/19 07:25 lansoprazole [From Prevacid] AdvReac Diarrhea Verified 04/01/19 07:25 ranitidine HCl [From Zantac] AdvReac Diarrhea Verified 04/01/19 07:25 shrimp AdvReac Nausea and Verified 04/01/19 07:25 Vomiting perch AdvReac Nausea and Uncoded 04/01/19 07:25 Vomiting pickle weinstein AdvReac Nausea and Uncoded 04/01/19 07:25 Vomiting walleye AdvReac Nausea and Uncoded 04/01/19 07:25 Vomiting Home Meds: Home Meds Budesonide/Formoterol [Symbicort 160-4.5 MCG] 2 puff INH BID 05/06/13 [History] Fexofenadine [Purnima] 60 mg PO DAILY PRN 05/06/13 [History] Montelukast [Singulair] 10 mg PO DAILY PRN 05/06/13 [History] Albuterol Sulfate [Proair Hfa] 2 puff IH QID 08/13/16 [History] Albuterol [Proventil Neb Soln] 2.5 mg IH Q4H PRN 08/13/16 [History] Esomeprazole [NexIUM] 20 mg PO DAILY 08/13/16 [History] Testosterone Cypionate 200 mg IM Q14D 08/13/16 [History] Umeclidinium Cameron [Incruse Ellipta] 1 puff IH DAILY 08/13/16 [History] predniSONE [Prednisone] 40 mg PO DAILY 09/21/16 [History] Aspirin [Halfprin] 81 mg PO DAILY 09/09/18 [History] oxyCODONE HCl/Acetaminophen [Percocet 5-325 mg Tablet] 1 each PO Q12HR PRN #14 tablet 09/09/18 [Rx] hydrOXYzine HCl [Atarax] 25 mg PO Q8H PRN #40 tab 09/11/18 [Rx] Arformoterol [Brovana] 2 ml IH BID 12/25/18 [History] Budesonide [Pulmicort] 2 ml IH BID 12/25/18 [History] Ipratropium [Atrovent] 2.5 ml IH TID 12/25/18 [History] Rosuvastatin Calcium 5 mg PO DAILY 12/25/18 [History] Doxycycline [Vibramycin] 100 mg PO BID 04/01/19 [History] L Acidophil/B Lactis/B Longum [Florajen3] 1 cap PO DAILY 04/01/19 [History] Nystatin 5 ml PO QID 04/01/19 [History] Past Medical History HEENT History: Reports: Allergic Rhinitis, Cataract, Impaired Vision Cardiovascular History: Reports: Arrhythmia, High Cholesterol Respiratory History: Reports: Asthma, COPD Gastrointestinal History: Reports: Chronic Diarrhea, Colon Polyp, GERD, Hiatal Hernia Other Gastrointestinal History: acid reflux Genitourinary History: Reports: Prostate Disorder, Renal Calculus Musculoskeletal History: Reports: Amputation, Arthritis, Fracture, Other (See Below) Other Musculoskeletal History: wrist fx r great toe fx left shoulder. R shoulder pain Hematologic History: Reports: None Immunologic History: Reports: None Oncologic (Cancer) History: Reports: None Dermatologic History: Reports: Eczema - Infectious Disease History Infectious Disease History: Reports: Chicken Pox, Measles, Mumps - Past Surgical History HEENT Surgical History: Reports: Adenoidectomy, Cataract Surgery, Tonsillectomy GI Surgical History: Reports: Colonoscopy, EGD, Hernia, Abdominal, Hernia, Inguinal Male Surgical History: Reports: TURP-Transurethral Resection of Prostate Musculoskeletal Surgical History: Reports: Amputation, Shoulder Replacement, Shoulder Surgery Social & Family History - Family History Family Medical History: Noncontributory - Tobacco Use Smoking Status *Q: Former Smoker Used Tobacco, but Quit: Yes Month/Year Tobacco Last Used: 20 - Caffeine Use Caffeine Use: Reports: Coffee, Soda ED ROS GENERAL - Review of Systems Review Of Systems: See Below Constitutional: Reports: Chills, Diaphoresis. Denies: Fever HEENT: Reports: Sinus Problem Respiratory: Reports: Shortness of Breath, Cough. Denies: Wheezing, Sputum Cardiovascular: Reports: Dyspnea on Exertion GI/Abdominal: Reports: Abdominal Pain, Flatus, Nausea. Denies: Vomiting Musculoskeletal: Reports: Muscle Pain Skin: Reports: No Symptoms Neurological: Reports: No Symptoms ED EXAM, SEPSIS - Physical Exam Exam: See Below Text/Narrative:: General: Male, ill-appearing, alert and oriented x3 HEENT: head is atraumatic normocephalic, eyes pupils equal round reactive to light, sclera clear no conjunctivitis appreciated. Ears tympanic membranes clear and toll[place] landmarks and light reflex are present bilaterally canals are clear. Nose no septal deviation, nares are clear, no blood present. Mouth mucosa is moist and pink no erythema or exudate noted in soft palate, tongue is midline uvula is midline , dentition is intact. Neck: Supple no thyromegaly no tracheal deviation. Nodes: Cervical nodes subclavicular nodes nontender no palpable lymphadenopathy noted. Lungs: Breath sounds are distant unappreciated any adventitious noises CV: Regular rate and rhythm S1 and S2 appreciated no murmurs rubs or gallops noted. Abdomen: Soft, generalized tenderness to palpation, no palpable masses or organomegaly appreciated, no distention no guarding bowel sounds are present, . Neuro: GCS 15 Skin: Warm and dry, intact Extremities: No lower extremity edema appreciated, Course - Vital Signs Last Recorded V/S: Last Vital Signs Temp 96.4 F 04/01/19 07:26 Pulse 107 H 04/01/19 11:20 Resp 25 H 04/01/19 11:20 BP 119/75 04/01/19 11:20 Pulse Ox 94 L 04/01/19 11:20 - Orders/Labs/Meds Orders: Active Orders 24 hr Category Date Time Status EKG Documentation Completion [RC] ASDIRECTED Care 04/01/19 07:48 Active Peripheral IV Care [RC] . DIRECTED Care 04/01/19 07:46 Active Vital Signs [RC] Q1H Care 04/01/19 07:44 Active Abdomen Pelvis w Cont [CT] Stat Exams 04/01/19 09:50 Taken CULTURE BLOOD [BC] Urgent Lab 04/01/19 07:53 Received CULTURE BLOOD [BC] Urgent Lab 04/01/19 07:59 Received Iopamidol [Isovue-300 (61%)] Med 04/01/19 10:30 Active 100 ml IV . DIRECTED Lactated Ringers [Ringers, Lactated] 1,000 ml Med 04/01/19 07:45 Active IV ASDIRECTED Lactated Ringers [Ringers, Lactated] 1,000 ml Med 04/01/19 10:35 Active IV BOLUS Levofloxacin/Dextrose 5%-Water [Levaquin in D5W 750 MG/ Med 04/01/19 09:00 Active 150 ML] 750 mg Premix Bag 1 bag IV Q24H Sodium Chloride 0.9% [Normal Saline] 100 ml Med 04/01/19 10:30 Active IV ASDIRECTED Sodium Chloride 0.9% [Saline Flush] Med 04/01/19 07:45 Active 10 ml FLUSH ASDIRECTED PRN Blood Culture x2 Reflex Set [OM.PC] Urgent Oth 04/01/19 07:44 Ordered Peripheral IV Insertion Adult [OM.PC] Urgent Oth 04/01/19 07:45 Ordered EKG 12 Lead [EK] Stat Ther 04/01/19 07:47 Ordered Medication Orders Lactated Ringer's (Ringers, Lactated) 1,000 mls @ 999 mls/hr IV ASDIRECTED [facility] Last Admin: 04/01/19 07:56 Dose: 999 mls/hr Levofloxacin/Dextrose 750 mg/ (Premix) 150 mls @ 100 mls/hr IV Q24H [facility] Last Admin: 04/01/19 08:59 Dose: 100 mls/hr Sodium Chloride (Normal Saline) 100 mls @ 3 mls/sec IV ASDIRECTED RENEA Last Admin: 04/01/19 10:21 Dose: 3 mls/sec Lactated Ringer's (Ringers, Lactated) 1,000 mls @ 250 mls/hr IV BOLUS ONE Stop: 04/01/19 14:34 Last Admin: 04/01/19 10:43 Dose: 250 mls/hr Iopamidol (Isovue-300 (61%)) 100 ml IV . DIRECTED RENEA Last Admin: 04/01/19 10:21 Dose: 100 ml Sodium Chloride (Saline Flush) 10 ml FLUSH ASDIRECTED PRN PRN Reason: Keep Vein Open Last Admin: 04/01/19 10:17 Dose: 10 ml Labs: Laboratory Tests 04/01/19 04/01/19 04/01/19 Range/Units 07:44 07:53 07:53 WBC 24.8 H (4.5-11.0) K/uL RBC 7.38 H (4.30-5.90) M/uL Hgb 16.0 H D (12.0-15.0) g/dL Hct 54.6 H (40.0-54.0) % MCV 74 L (80-98) fL MCH 22 L (27-31) pg MCHC 29 L (32-36) % Plt Count 435 H (150-400) K/uL Neut % (Auto) 90 H (36-66) % Lymph % (Auto) 2 L (24-44) % Haines % (Auto) 7 H (2-6) % Eos % (Auto) 1 L (2-4) % Baso % (Auto) 0 (0-1) % Sodium 141 (140-148) mmol/L Potassium 4.1 (3.6-5.2) mmol/L Chloride 105 (100-108) mmol/L Carbon Dioxide 23 (21-32) mmol/L Anion Gap 13.0 (5.0-14.0) mmol/L BUN 26 H D (7-18) mg/dL Creatinine 1.4 H (0.8-1.3) mg/dL Est Cr Clr Drug Dosing 44.94 mL/min Estimated GFR (MDRD) 50 L (>60) Glucose 165 H (74-106) mg/dL Lactic Acid (0.4-2.0) mmol/L Calcium 8.7 (8.5-10.1) mg/dL Total Bilirubin 0.9 D (0.2-1.0) mg/dL AST 24 (15-37) U/L ALT 36 (12-78) U/L Alkaline Phosphatase 77 (46-116) U/L Lactate Dehydrogenase (85-227) U/L Troponin I (0.000-0.056) ng/mL C-Reactive Protein 1.96 H (0.0-0.3) mg/dL Total Protein 7.4 (6.4-8.2) g/dL Albumin 4.0 (3.4-5.0) g/dL Globulin 3.4 (2.3-3.5) g/dL Albumin/Globulin Ratio 1.2 (1.2-2.2) Procalcitonin ng/mL Urine Color Yellow (YELLOW) Urine Appearance Slightly cloudy A (CLEAR) Urine pH 5.0 (5.0-8.0) Ur Specific [place] 1.025 (1.008-1.030) Urine Protein 30 H (NEGATIVE) mg/dL Urine Glucose (UA) Negative (NEGATIVE) mg/dL Urine Ketones Trace H (NEGATIVE) mg/dL Urine Occult Blood Trace-intact H (NEGATIVE) Urine Nitrite Negative (NEGATIVE) Urine Bilirubin Small H (NEGATIVE) Urine Urobilinogen 0.2 (0.2-1.0) EU/dL Ur Leukocyte Esterase Negative (NEGATIVE) Urine RBC 0-5 (0-5) Urine WBC 0-5 (0-5) Ur Epithelial Cells Not seen Amorphous Sediment Not seen Urine Bacteria Not seen Urine Mucus Many 04/01/19 04/01/19 04/01/19 Range/Units 07:53 07:53 07:53 WBC (4.5-11.0) K/uL RBC (4.30-5.90) M/uL Hgb (12.0-15.0) g/dL Hct (40.0-54.0) % MCV (80-98) fL MCH (27-31) pg MCHC (32-36) % Plt Count (150-400) K/uL Neut % (Auto) (36-66) % Lymph % (Auto) (24-44) % Haines % (Auto) (2-6) % Eos % (Auto) (2-4) % Baso % (Auto) (0-1) % Sodium (140-148) mmol/L Potassium (3.6-5.2) mmol/L Chloride (100-108) mmol/L Carbon Dioxide (21-32) mmol/L Anion Gap (5.0-14.0) mmol/L BUN (7-18) mg/dL Creatinine (0.8-1.3) mg/dL Est Cr Clr Drug Dosing mL/min Estimated GFR (MDRD) (>60) Glucose (74-106) mg/dL Lactic Acid 2.6 H (0.4-2.0) mmol/L Calcium (8.5-10.1) mg/dL Total Bilirubin (0.2-1.0) mg/dL AST (15-37) U/L ALT (12-78) U/L Alkaline Phosphatase (46-116) U/L Lactate Dehydrogenase (85-227) U/L Troponin I < 0.017 (0.000-0.056) ng/mL C-Reactive Protein (0.0-0.3) mg/dL Total Protein (6.4-8.2) g/dL Albumin (3.4-5.0) g/dL Globulin (2.3-3.5) g/dL Albumin/Globulin Ratio (1.2-2.2) Procalcitonin 5.85 H* ng/mL Urine Color (YELLOW) Urine Appearance (CLEAR) Urine pH (5.0-8.0) Ur Specific [place] (1.008-1.030) Urine Protein (NEGATIVE) mg/dL Urine Glucose (UA) (NEGATIVE) mg/dL Urine Ketones (NEGATIVE) mg/dL Urine Occult Blood (NEGATIVE) Urine Nitrite (NEGATIVE) Urine Bilirubin (NEGATIVE) Urine Urobilinogen (0.2-1.0) EU/dL Ur Leukocyte Esterase (NEGATIVE) Urine RBC (0-5) Urine WBC (0-5) Ur Epithelial Cells Amorphous Sediment Urine Bacteria Urine Mucus 04/01/19 Range/Units 09:03 WBC (4.5-11.0) K/uL RBC (4.30-5.90) M/uL Hgb (12.0-15.0) g/dL Hct (40.0-54.0) % MCV (80-98) fL MCH (27-31) pg MCHC (32-36) % Plt Count (150-400) K/uL Neut % (Auto) (36-66) % Lymph % (Auto) (24-44) % Haines % (Auto) (2-6) % Eos % (Auto) (2-4) % Baso % (Auto) (0-1) % Sodium (140-148) mmol/L Potassium (3.6-5.2) mmol/L Chloride (100-108) mmol/L Carbon Dioxide (21-32) mmol/L Anion Gap (5.0-14.0) mmol/L BUN (7-18) mg/dL Creatinine (0.8-1.3) mg/dL Est Cr Clr Drug Dosing mL/min Estimated GFR (MDRD) (>60) Glucose (74-106) mg/dL Lactic Acid (0.4-2.0) mmol/L Calcium (8.5-10.1) mg/dL Total Bilirubin (0.2-1.0) mg/dL AST (15-37) U/L ALT (12-78) U/L Alkaline Phosphatase (46-116) U/L Lactate Dehydrogenase 323 H (85-227) U/L Troponin I (0.000-0.056) ng/mL C-Reactive Protein (0.0-0.3) mg/dL Total Protein (6.4-8.2) g/dL Albumin (3.4-5.0) g/dL Globulin (2.3-3.5) g/dL Albumin/Globulin Ratio (1.2-2.2) Procalcitonin ng/mL Urine Color (YELLOW) Urine Appearance (CLEAR) Urine pH (5.0-8.0) Ur Specific [place] (1.008-1.030) Urine Protein (NEGATIVE) mg/dL Urine Glucose (UA) (NEGATIVE) mg/dL Urine Ketones (NEGATIVE) mg/dL Urine Occult Blood (NEGATIVE) Urine Nitrite (NEGATIVE) Urine Bilirubin (NEGATIVE) Urine Urobilinogen (0.2-1.0) EU/dL Ur Leukocyte Esterase (NEGATIVE) Urine RBC (0-5) Urine WBC (0-5) Ur Epithelial Cells Amorphous Sediment Urine Bacteria Urine Mucus Meds: Medications Generic Name Dose Route Start Last Admin Trade Name Freq PRN Reason Stop Dose Admin Lactated Ringer's 1,000 mls @ 999 mls/hr 04/01/19 07:45 04/01/19 07:56 Ringers, Lactated IV 999 mls/hr ASDIRECTED RENEA Administration Levofloxacin/Dextrose 750 mg/ 150 mls @ 100 mls/hr 04/01/19 09:00 04/01/19 08 :59 Premix IV 100 mls/hr Q24H RENEA Administration Sodium Chloride 100 mls @ 3 mls/sec 04/01/19 10:30 04/01/19 10:21 Normal Saline IV 3 mls/sec ASDIRECTED RENEA Administration Lactated Ringer's 1,000 mls @ 250 mls/hr 04/01/19 10:35 04/01/19 10:43 Ringers, Lactated IV 04/01/19 14:34 250 mls/hr BOLUS ONE Administration Iopamidol 100 ml 04/01/19 10:30 04/01/19 10:21 Isovue-300 (61%) IV 100 ml . DIRECTED RENEA Administration Sodium Chloride 10 ml 04/01/19 07:45 04/01/19 10:17 Saline Flush FLUSH 10 ml ASDIRECTED PRN Administration Keep Vein Open Discontinued Medications Generic Name Dose Route Start Last Admin Trade Name Freq PRN Reason Stop Dose Admin Lactated Ringer's 1,000 mls @ 999 mls/hr 04/01/19 09:03 04/01/19 09:20 Ringers, Lactated IV 04/01/19 10:03 999 mls/hr BOLUS ONE Administration Ketorolac Tromethamine 30 mg 04/01/19 07:47 04/01/19 07:59 Toradol IVPUSH 04/01/19 07:48 30 mg ONETIME ONE Administration Ondansetron HCl 4 mg 04/01/19 07:46 04/01/19 07:56 Zofran IVPUSH 04/01/19 07:47 4 mg ONETIME ONE Administration Ondansetron HCl Confirm 04/01/19 07:48 04/01/19 08:01 Zofran Administered 04/01/19 07:49 Not Given Dose 4 mg .ROUTE .STK-MED ONE Sodium Chloride 10 ml 04/01/19 10:17 04/01/19 10:44 Saline Flush FLUSH 04/01/19 10:18 Not Given ONETIME ONE Departure - Departure Time of Disposition: 12:02 Disposition: Admitted As Inpatient 65 Condition: Fair Clinical Impression: Sepsis Qualifiers: Sepsis type: sepsis due to unspecified organism Sepsis acute organ dysfunction status: with acute organ dysfunction Severe sepsis acute organ dysfunction type : acute respiratory failure Acute respiratory failure type: with hypoxia Severe sepsis shock status: without septic shock Qualified Code(s): A41.9 - Sepsis, unspecified organism; R65.20 - Severe sepsis without septic shock; J96.01 - Acute respiratory failure with hypoxia - Discharge Information Referrals: Bimal Tineo MD [Primary Care Provider] - Forms: ED Department Discharge - My Orders Last 24 Hours: My Active Orders 04/01/19 07:44 Vital Signs [RC] Q1H Blood Culture x2 Reflex Set [OM.PC] Urgent 04/01/19 07:45 Lactated Ringers [Ringers, Lactated] 1,000 ml IV ASDIRECTED Sodium Chloride 0.9% [Saline Flush] 10 ml FLUSH ASDIRECTED PRN Peripheral IV Insertion Adult [OM.PC] Urgent 04/01/19 07:46 Peripheral IV Care [RC] . DIRECTED 04/01/19 07:47 EKG 12 Lead [EK] Stat 04/01/19 07:48 EKG Documentation Completion [RC] ASDIRECTED 04/01/19 07:53 CULTURE BLOOD [BC] Urgent 04/01/19 07:59 CULTURE BLOOD [BC] Urgent 04/01/19 09:00 Levofloxacin/Dextrose 5%-Water [Levaquin in D5W 750 MG/150 ML] 750 mg Premix Bag 1 bag IV Q24H 04/01/19 09:50 Abdomen Pelvis w Cont [CT] Stat 04/01/19 10:30 Iopamidol [Isovue-300 (61%)] 100 ml IV . DIRECTED Sodium Chloride 0.9% [Normal Saline] 100 ml IV ASDIRECTED 04/01/19 10:35 Lactated Ringers [Ringers, Lactated] 1,000 ml IV BOLUS - Assessment/Plan Last 24 Hours: My Active Orders 04/01/19 07:44 Vital Signs [RC] Q1H Blood Culture x2 Reflex Set [OM.PC] Urgent 04/01/19 07:45 Lactated Ringers [Ringers, Lactated] 1,000 ml IV ASDIRECTED Sodium Chloride 0.9% [Saline Flush] 10 ml FLUSH ASDIRECTED PRN Peripheral IV Insertion Adult [OM.PC] Urgent 04/01/19 07:46 Peripheral IV Care [RC] . DIRECTED 04/01/19 07:47 EKG 12 Lead [EK] Stat 04/01/19 07:48 EKG Documentation Completion [RC] ASDIRECTED 04/01/19 07:53 CULTURE BLOOD [BC] Urgent 04/01/19 07:59 CULTURE BLOOD [BC] Urgent 04/01/19 09:00 Levofloxacin/Dextrose 5%-Water [Levaquin in D5W 750 MG/150 ML] 750 mg Premix Bag 1 bag IV Q24H 04/01/19 09:50 Abdomen Pelvis w Cont [CT] Stat 04/01/19 10:30 Iopamidol [Isovue-300 (61%)] 100 ml IV . DIRECTED Sodium Chloride 0.9% [Normal Saline] 100 ml IV ASDIRECTED 04/01/19 10:35 Lactated Ringers [Ringers, Lactated] 1,000 ml IV BOLUS Plan: Assessment Acuity = acute Site and laterality = sepsis suspicious for pulmonary source Etiology = unknown Manifestations = tachycardia Location of injury = Home Lab values = WBC elevated 24.8 consistent leukocytosis, creatinine elevated 1.4 consistent with acute renal failure stage G IIIa lactic acid elevated 2.8 consistent lactic acidosis, troponin is negative LDH slightly elevated 323 of uncertain significance CRP elevated 1.96 pro-calcitonin 5.85 concerning for early sepsis urinalysis unremarkable chest x-ray shows no acute process CT scan abdomen also no acute process does have a large hiatal hernia EKG demonstrates sinus tachycardia no ST elevations or depressions similar to prior EKGs Plan Called and discussed the case with hospitalist on-call at 11:15 kindly agreed to come and evaluate the patient emergency department for admission thus far received 2 L of fluid and 1 dose of 750 mg Levaquin This note was dictated using [employer] voice recognition software please call with any questions on syntax or grammar.
--- NOTE | 2019-04-01 08:29 | CRLCR ---
Indication: Pain. Technique: Abdomen 1 view. Comparison: None. Findings: Nonobstructive bowel gas pattern. No significant stool burden. No definite free air, however the hemidiaphragms are not imaged. No pneumatosis. Hernia repair tacks in the lower abdomen centrally. Impression: Unremarkable abdomen. Dictated by April Alvarez MD @ Apr 01 2019 8:25AM Signed by Dr. April Alvarez @ Apr 01 2019 8:27AM
--- NOTE | 2019-04-01 08:52 | CRLCR ---
INDICATION: Shortness of breath. COMPARISON: Chest radiograph 08/21/2016. TECHNIQUE: Two view chest. FINDINGS: No focal consolidation, pleural effusion, or pneumothorax. Heart size upper limits of normal. Normal pulmonary vascularity. Large hiatal hernia which is new since prior exam. IMPRESSION: 1. No acute cardiopulmonary findings. 2. New large hiatal hernia. Dictated by April Alvarez MD @ Apr 01 2019 8:47AM Signed by Dr. April Alvarez @ Apr 01 2019 8:50AM
[2019-04-01] MEDS ORDERED: Levofloxacin/Dextrose 5%-Water 750 MG in Premix Bag 1 BAG IV SCH (09:00)
[2019-04-01] MEDS ORDERED: Lactated Ringers 1,000 ML IV ONE ×2 (09:03→10:35)
[2019-04-01] MEDS ORDERED: Sodium Chloride 0.9% 10 ML Syringe FLUSH ONE (10:17)
[2019-04-01] MEDS ORDERED: Iopamidol 612 MG/ML 100 ML Bottle IV SCH (10:30)
[2019-04-01] MEDS ORDERED: Sodium Chloride 0.9% 100 ML IV SCH (10:30)
[2019-04-01] MEDS ORDERED: fentaNYL 100 MCG/2 ML SDV IVPUSH ONE (13:28)
[2019-04-01] MEDS ORDERED: Ondansetron 4 MG/2 ML SDV IV PRN (13:49)
[2019-04-01] MEDS ORDERED: Albuterol 0.083% 2.5 MG/3 ML Neb Soln INH PRN (13:49)
[2019-04-01] MEDS ORDERED: Acetaminophen 325 MG Tab PO PRN (13:49)
[2019-04-01] MEDS ORDERED: Polyethylene Glycol 3350 Powder 17 GM Packet PO PRN (13:49)
[2019-04-01] MEDS ORDERED: Loratadine 10 MG Tab PO PRN (13:49)
[2019-04-01] MEDS ORDERED: Montelukast 10 MG Tab PO PRN (13:49)
[2019-04-01] MEDS: Albuterol/Ipratropium 3.0-0.5 MG/3 ML Neb Soln NEB SCH ×2 (14:18→21:53)
--- NOTE | 2019-04-01 14:44 | PCM.HP.2 ---
H&P History of Present Illness - General Date of Service: 04/01/19 Admit Problem/Dx: Admission Diagnosis/Problem Admission Diagnosis/Problem Pneumonia Source of Information: Patient, Family, Provider, RN Notes Reviewed History Limitations: Reports: No Limitations - History of Present Illness Initial Comments - Free Text/Narative: Mr. Obrien is a 68-year-old gentleman who was admitted through the emergency department with weakness, dehydration, nausea, vomiting, and diarrhea, secondary to viral gastroenteritis. Over the past month he's had difficulty with a viral upper respiratory tract infection and increased shortness of breath complicating his underlying COPD. Week ago he was seen in the clinic and started on antibiotic therapy with an increase in prednisone to 80 mg daily. Respiratory status is been stable over the past week although he is not noted significant improvement with the antibiotic. Last night he developed abrupt onset of nausea, vomiting, and diarrhea with abdominal pain. He presented to the emergency department this morning, white blood cell count noted to be significantly elevated at 24,000. Chest x-ray and abdominal x-ray showed no obvious abnormalities. CT scan of the abdomen showed no obvious source of active infection. Elevated white blood cell count is thought to be secondary to recent increase in glucocorticoid therapy. Abdomen Pain Score (Numeric/FACES): 5 - Related Data Allergies/Adverse Reactions: Allergies Allergy/AdvReac Type Severity Reaction Status Date / Time atorvastatin Allergy Cannot Verified 04/01/19 07:25 Remember hydrocodone Allergy Cannot Verified 04/01/19 07:25 Remember Penicillins Allergy Rash Verified 04/01/19 07:25 ibuprofen AdvReac Nausea Verified 04/01/19 07:25 lansoprazole [From Prevacid] AdvReac Diarrhea Verified 04/01/19 07:25 ranitidine HCl [From Zantac] AdvReac Diarrhea Verified 04/01/19 07:25 shrimp AdvReac Nausea and Verified 04/01/19 07:25 Vomiting perch AdvReac Nausea and Uncoded 04/01/19 07:25 Vomiting pickle weinstein AdvReac Nausea and Uncoded 04/01/19 07:25 Vomiting walleye AdvReac Nausea and Uncoded 04/01/19 07:25 Vomiting Home Medications: Home Meds Budesonide/Formoterol [Symbicort 160-4.5 MCG] 2 puff INH BID 05/06/13 [History] Fexofenadine [Purnima] 60 mg PO DAILY PRN 05/06/13 [History] Montelukast [Singulair] 10 mg PO DAILY PRN 05/06/13 [History] Albuterol Sulfate [Proair Hfa] 2 puff IH QID 08/13/16 [History] Albuterol [Proventil Neb Soln] 2.5 mg IH Q4H PRN 08/13/16 [History] Esomeprazole [NexIUM] 20 mg PO DAILY 08/13/16 [History] Testosterone Cypionate 200 mg IM Q14D 08/13/16 [History] Umeclidinium Draper [Incruse Ellipta] 1 puff IH DAILY 08/13/16 [History] predniSONE [Prednisone] 40 mg PO DAILY 09/21/16 [History] Aspirin [Halfprin] 81 mg PO DAILY 09/09/18 [History] oxyCODONE HCl/Acetaminophen [Percocet 5-325 mg Tablet] 1 each PO Q12HR PRN #14 tablet 09/09/18 [Rx] hydrOXYzine HCl [Atarax] 25 mg PO Q8H PRN #40 tab 09/11/18 [Rx] Arformoterol [Brovana] 2 ml IH BID 12/25/18 [History] Budesonide [Pulmicort] 2 ml IH BID 12/25/18 [History] Ipratropium [Atrovent] 2.5 ml IH TID 12/25/18 [History] Rosuvastatin Calcium 5 mg PO DAILY 12/25/18 [History] Doxycycline [Vibramycin] 100 mg PO BID 04/01/19 [History] L Acidophil/B Lactis/B Longum [Florajen3] 1 cap PO DAILY 04/01/19 [History] Nystatin 5 ml PO QID 04/01/19 [History] Past Medical History HEENT History: Reports: Allergic Rhinitis, Cataract, Impaired Vision Cardiovascular History: Reports: Arrhythmia, High Cholesterol Respiratory History: Reports: Asthma, COPD Gastrointestinal History: Reports: Chronic Diarrhea, Colon Polyp, GERD, Hiatal Hernia Other Gastrointestinal History: acid reflux Genitourinary History: Reports: Prostate Disorder, Renal Calculus Musculoskeletal History: Reports: Amputation, Arthritis, Fracture, Other (See Below) Other Musculoskeletal History: wrist fx r great toe fx left shoulder. R shoulder pain Neurological History: Reports: None Psychiatric History: Reports: None Endocrine/Metabolic History: Reports: None Hematologic History: Reports: None Immunologic History: Reports: None Oncologic (Cancer) History: Reports: None Dermatologic History: Reports: Eczema - Infectious Disease History Infectious Disease History: Reports: Chicken Pox, Measles, Mumps - Past Surgical History HEENT Surgical History: Reports: Adenoidectomy, Cataract Surgery, Tonsillectomy GI Surgical History: Reports: Colonoscopy, EGD, Hernia, Abdominal, Hernia, Inguinal Male Surgical History: Reports: TURP-Transurethral Resection of Prostate Musculoskeletal Surgical History: Reports: Amputation, Shoulder Replacement, Shoulder Surgery Social & Family History - Family History Family Medical History: Noncontributory - Tobacco Use Smoking Status *Q: Former Smoker Years of Tobacco use: 20 Used Tobacco, but Quit: Yes Month/Year Tobacco Last Used: 30 yrs ago - Caffeine Use Caffeine Use: Reports: Coffee - Recreational Drug Use Recreational Drug Use: No H&P Review of Systems - Review of Systems: Review Of Systems: See Below General: Reports: Fever, Weakness, Fatigue, Diaphoresis HEENT: Reports: No Symptoms Pulmonary: Reports: Shortness of Breath, Wheezing, Cough. Denies: Sputum, Hemoptysis Cardiovascular: Reports: No Symptoms Gastrointestinal: Reports: Abdominal Pain, Diarrhea, Nausea, Vomiting. Denies: Black Stool, Bloody Stool, Constipation, Distension Genitourinary: Reports: No Symptoms Musculoskeletal: Reports: No Symptoms Skin: Reports: No Symptoms Psychiatric: Reports: No Symptoms Neurological: Reports: No Symptoms Hematologic/Lymphatic: Reports: No Symptoms Immunologic: Reports: No Symptoms Exam - Exam Exam: See Below - Vital Signs Vital Signs: Last Vital Signs Temp 99.4 F 04/01/19 14:04 Pulse 107 H 04/01/19 14:20 Resp 20 04/01/19 14:04 BP 128/68 04/01/19 14:04 Pulse Ox 93 L 04/01/19 14:20 Weight: 159 lb 3.2 oz - Exam Quality Assessment: DVT Prophylaxis General: Alert, Oriented, Cooperative, Moderate Distress HEENT: Conjunctiva Clear, Hearing Intact, Normal Nasal Septum, Posterior Pharynx Clear, Pupils Equal. No: Mucosa Moist & [place] Neck: Supple, Trachea Midline, +2 Carotid Pulse wo Bruit Lungs: Clear to Auscultation, Decreased Breath Sounds. No: Rales, Rhonchi, Wheezing Cardiovascular: Regular Rate, Regular Rhythm, Normal S1, Normal S2. No: Systolic Murmur, Diastolic Murmur GI/Abdominal Exam: Soft, No Organomegaly, Tender. No: Distended, Guarding, Rigid, Rebound Back Exam: Normal Inspection, Full Range of Motion Extremities: Non-Tender, No Pedal Edema Skin: Warm, Dry, Intact Neurological: Cranial Nerves Intact, Strength Equal Bilateral, Normal Speech, Normal Tone, Sensation Intact. No: Focal Deficit Neuro Extensive - Mental Status: Alert, Oriented x3, Normal Mood/Affect, Normal Cognition, Memory Intact - Patient Data Lab Results Last 24 hrs: Laboratory Results - last 24 hr 04/01/19 04/01/19 04/01/19 Range/Units 07:44 07:53 07:53 WBC 24.8 H (4.5-11.0) K/uL RBC 7.38 H (4.30-5.90) M/uL Hgb 16.0 H D (12.0-15.0) g/dL Hct 54.6 H (40.0-54.0) % MCV 74 L (80-98) fL MCH 22 L (27-31) pg MCHC 29 L (32-36) % Plt Count 435 H (150-400) K/uL Neut % (Auto) 90 H (36-66) % Lymph % (Auto) 2 L (24-44) % Wilson % (Auto) 7 H (2-6) % Eos % (Auto) 1 L (2-4) % Baso % (Auto) 0 (0-1) % Sodium 141 (140-148) mmol/L Potassium 4.1 (3.6-5.2) mmol/L Chloride 105 (100-108) mmol/L Carbon Dioxide 23 (21-32) mmol/L Anion Gap 13.0 (5.0-14.0) mmol/L BUN 26 H D (7-18) mg/dL Creatinine 1.4 H (0.8-1.3) mg/dL Est Cr Clr Drug Dosing 44.94 mL/min Estimated GFR (MDRD) 50 L (>60) Glucose 165 H (74-106) mg/dL Lactic Acid (0.4-2.0) mmol/L Calcium 8.7 (8.5-10.1) mg/dL Total Bilirubin 0.9 D (0.2-1.0) mg/dL AST 24 (15-37) U/L ALT 36 (12-78) U/L Alkaline Phosphatase 77 (46-116) U/L Lactate Dehydrogenase (85-227) U/L Troponin I (0.000-0.056) ng/mL C-Reactive Protein 1.96 H (0.0-0.3) mg/dL Total Protein 7.4 (6.4-8.2) g/dL Albumin 4.0 (3.4-5.0) g/dL Globulin 3.4 (2.3-3.5) g/dL Albumin/Globulin Ratio 1.2 (1.2-2.2) Procalcitonin ng/mL Urine Color Yellow (YELLOW) Urine Appearance Slightly cloudy A (CLEAR) Urine pH 5.0 (5.0-8.0) Ur Specific Catarina 1.025 (1.008-1.030) Urine Protein 30 H (NEGATIVE) mg/dL Urine Glucose (UA) Negative (NEGATIVE) mg/dL Urine Ketones Trace H (NEGATIVE) mg/dL Urine Occult Blood Trace-intact H (NEGATIVE) Urine Nitrite Negative (NEGATIVE) Urine Bilirubin Small H (NEGATIVE) Urine Urobilinogen 0.2 (0.2-1.0) EU/dL Ur Leukocyte Esterase Negative (NEGATIVE) Urine RBC 0-5 (0-5) Urine WBC 0-5 (0-5) Ur Epithelial Cells Not seen Amorphous Sediment Not seen Urine Bacteria Not seen Urine Mucus Many 04/01/19 04/01/19 04/01/19 Range/Units 07:53 07:53 07:53 WBC (4.5-11.0) K/uL RBC (4.30-5.90) M/uL Hgb (12.0-15.0) g/dL Hct (40.0-54.0) % MCV (80-98) fL MCH (27-31) pg MCHC (32-36) % Plt Count (150-400) K/uL Neut % (Auto) (36-66) % Lymph % (Auto) (24-44) % Wilson % (Auto) (2-6) % Eos % (Auto) (2-4) % Baso % (Auto) (0-1) % Sodium (140-148) mmol/L Potassium (3.6-5.2) mmol/L Chloride (100-108) mmol/L Carbon Dioxide (21-32) mmol/L Anion Gap (5.0-14.0) mmol/L BUN (7-18) mg/dL Creatinine (0.8-1.3) mg/dL Est Cr Clr Drug Dosing mL/min Estimated GFR (MDRD) (>60) Glucose (74-106) mg/dL Lactic Acid 2.6 H (0.4-2.0) mmol/L Calcium (8.5-10.1) mg/dL Total Bilirubin (0.2-1.0) mg/dL AST (15-37) U/L ALT (12-78) U/L Alkaline Phosphatase (46-116) U/L Lactate Dehydrogenase (85-227) U/L Troponin I < 0.017 (0.000-0.056) ng/mL C-Reactive Protein (0.0-0.3) mg/dL Total Protein (6.4-8.2) g/dL Albumin (3.4-5.0) g/dL Globulin (2.3-3.5) g/dL Albumin/Globulin Ratio (1.2-2.2) Procalcitonin 5.85 H* ng/mL Urine Color (YELLOW) Urine Appearance (CLEAR) Urine pH (5.0-8.0) Ur Specific Catarina (1.008-1.030) Urine Protein (NEGATIVE) mg/dL Urine Glucose (UA) (NEGATIVE) mg/dL Urine Ketones (NEGATIVE) mg/dL Urine Occult Blood (NEGATIVE) Urine Nitrite (NEGATIVE) Urine Bilirubin (NEGATIVE) Urine Urobilinogen (0.2-1.0) EU/dL Ur Leukocyte Esterase (NEGATIVE) Urine RBC (0-5) Urine WBC (0-5) Ur Epithelial Cells Amorphous Sediment Urine Bacteria Urine Mucus 04/01/19 Range/Units 09:03 WBC (4.5-11.0) K/uL RBC (4.30-5.90) M/uL Hgb (12.0-15.0) g/dL Hct (40.0-54.0) % MCV (80-98) fL MCH (27-31) pg MCHC (32-36) % Plt Count (150-400) K/uL Neut % (Auto) (36-66) % Lymph % (Auto) (24-44) % Wilson % (Auto) (2-6) % Eos % (Auto) (2-4) % Baso % (Auto) (0-1) % Sodium (140-148) mmol/L Potassium (3.6-5.2) mmol/L Chloride (100-108) mmol/L Carbon Dioxide (21-32) mmol/L Anion Gap (5.0-14.0) mmol/L BUN (7-18) mg/dL Creatinine (0.8-1.3) mg/dL Est Cr Clr Drug Dosing mL/min Estimated GFR (MDRD) (>60) Glucose (74-106) mg/dL Lactic Acid (0.4-2.0) mmol/L Calcium (8.5-10.1) mg/dL Total Bilirubin (0.2-1.0) mg/dL AST (15-37) U/L ALT (12-78) U/L Alkaline Phosphatase (46-116) U/L Lactate Dehydrogenase 323 H (85-227) U/L Troponin I (0.000-0.056) ng/mL C-Reactive Protein (0.0-0.3) mg/dL Total Protein (6.4-8.2) g/dL Albumin (3.4-5.0) g/dL Globulin (2.3-3.5) g/dL Albumin/Globulin Ratio (1.2-2.2) Procalcitonin ng/mL Urine Color (YELLOW) Urine Appearance (CLEAR) Urine pH (5.0-8.0) Ur Specific Catarina (1.008-1.030) Urine Protein (NEGATIVE) mg/dL Urine Glucose (UA) (NEGATIVE) mg/dL Urine Ketones (NEGATIVE) mg/dL Urine Occult Blood (NEGATIVE) Urine Nitrite (NEGATIVE) Urine Bilirubin (NEGATIVE) Urine Urobilinogen (0.2-1.0) EU/dL Ur Leukocyte Esterase (NEGATIVE) Urine RBC (0-5) Urine WBC (0-5) Ur Epithelial Cells Amorphous Sediment Urine Bacteria Urine Mucus Result Diagrams: 04/01/19 07:53 04/01/19 07:53 [place] Results Last 24 hrs: Microbiology 04/01/19 07:45 Influenza Type A Antigen Screen - Final Nasal Aspirate, Unspecified NEGATIVE INFLUENZA A VIRUS AG REFERENCE RANGE: NEGATIVE Influenza Type B Antigen Screen - Final NEGATIVE INFLUENZA B VIRUS AG REFERENCE RANGE: NEGATIVE *Q Meaningful Use (ADM) - VTE Risk Assess *Q Each Risk Factor Represents 1 Point: Obesity ( BMI > 25 kg/m2), Abnormal Pulmonary Function (COPD) Total Score 1 Point Risk Factors: 2 Each Risk Factor Represents 2 Points: Age 60 - 74 Years Total Score 2 Point Risk Factors: 2 Each Risk Factor Represents 3 Points: None Total Score 3 Point Risk Factors: 0 Each Risk Factor Represents 5 Points: None Total Score 5 Point Risk Factors: 0 Venous Thromboembolism Risk Factor Score *Q: 4 Problem List Initiated/Reviewed/Updated: Yes Orders Last 24hrs: Active Orders 24 hr Category Date Time Status Patient Status [ADT] Routine ADT 04/01/19 13:49 Active Ambulate [RC] QID Care 04/01/19 13:49 Active Height and Weight [RC] DAILY Care 04/01/19 13:49 Active Intake and Output [RC] QSHIFT Care 04/01/19 13:49 Active Notify Provider Vital Signs [RC] ASDIRECTED Care 04/01/19 13:49 Active Oxygen Therapy [RC] PRN Care 04/01/19 13:49 Active Peripheral IV Care [RC] . DIRECTED Care 04/01/19 07:46 Inactive Peripheral IV Care [RC] . DIRECTED Care 04/01/19 13:49 Active Pulse Oximetry [RC] CONTINUOUS Care 04/01/19 13:49 Active RT Aerosol Therapy [RC] ASDIRECTED Care 04/01/19 13:49 Active Up to Chair [RC] QID Care 04/01/19 13:49 Active VTE/DVT Education [RC] Per Unit Routine Care 04/01/19 13:49 Active Vital Signs [RC] Q4H Care 04/01/19 13:49 Active Regular Diet [DIET] Diet 04/01/19 Lunch Active Abdomen Pelvis w Cont [CT] Stat Exams 04/01/19 09:50 Taken Chest 2V [CR] AM Exams 04/02/19 05:11 Ordered BASIC METABOLIC PANEL,BMP [CHEM] AM Lab 04/02/19 05:11 Ordered CBC WITH AUTO DIFF [HEME] AM Lab 04/02/19 05:11 Ordered CULTURE BLOOD [BC] Urgent Lab 04/01/19 07:53 Received CULTURE BLOOD [BC] Urgent Lab 04/01/19 07:59 Received CULTURE RESPIRATORY + SMEAR [RM] Stat Lab 04/01/19 13:49 Ordered Acetaminophen [Tylenol] Med 04/01/19 13:49 Active 650 mg PO Q4H PRN Albuterol [Proventil Neb Soln] Med 04/01/19 13:49 Active 2.5 mg INH Q4H PRN Albuterol/Ipratropium [DuoNeb 3.0-0.5 MG/3 ML] Med 04/01/19 15:00 Active 3 ml NEB QIDRT Arformoterol [Brovana] Med 04/01/19 21:00 Active 15 mcg INH BIDRT Aspirin [Halfprin] Med 04/02/19 09:00 Active 81 mg PO DAILY Enoxaparin [Lovenox] Med 04/01/19 16:00 Active 40 mg SUBCUT Q24H Fluticasone/Salmeterol [Fluticasone-Salmeterol 232-14 Med 04/01/19 21:00 Active MCG Powder Inha] 0 puff INH BIDRT Lactated Ringers [Ringers, Lactated] 1,000 ml Med 04/01/19 13:49 Active IV ASDIRECTED Levofloxacin/Dextrose 5%-Water [Levaquin in D5W 750 MG/ Med 04/02/19 14:00 Active 150 ML] 750 mg Premix Bag 1 bag IV Q24H Loratadine [Claritin] Med 04/01/19 13:49 Active 10 mg PO DAILY PRN Montelukast [Singulair] Med 04/01/19 13:49 Active 10 mg PO DAILY PRN Ondansetron [Zofran] Med 04/01/19 13:49 Active 4 mg IV Q4H PRN Pantoprazole [ProTONIX] Med 04/02/19 09:00 Active 40 mg PO ACBREAKFAST Polyethylene Glycol 3350 [MiraLAX] Med 04/01/19 13:49 Active 17 gm PO DAILY PRN Rosuvastatin [Crestor] Med 04/02/19 09:00 Active 5 mg PO DAILY Sodium Chloride 0.9% [Saline Flush] Med 04/01/19 13:49 Active 10 ml FLUSH ASDIRECTED PRN methylPREDNISolone Sod Succ [Solu-MEDROL] Med 04/01/19 16:00 Active 40 mg IVPUSH Q6H oxyCODONE Med 04/01/19 13:49 Active 5 mg PO Q4H PRN Blood Culture x2 Reflex Set [OM.PC] Urgent Oth 04/01/19 07:44 Ordered Peripheral IV Insertion Adult [OM.PC] Routine Oth 04/01/19 13:49 Ordered Resuscitation Status Routine Resus Stat 04/01/19 13:08 Ordered EKG 12 Lead [EK] Stat Ther 04/01/19 07:47 Stop Req Medication Orders Acetaminophen (Tylenol) 650 mg PO Q4H PRN PRN Reason: Pain (Mild 1-3)/fever Albuterol (Proventil Neb Soln) 2.5 mg INH Q4H PRN PRN Reason: Shortness of Breath Albuterol/Ipratropium (Duoneb 3.0-0.5 Mg/3 Ml) 3 ml NEB QIDRT [facility] Last Admin: 04/01/19 14:18 Dose: 3 ml Arformoterol Tartrate (Brovana) 15 mcg INH BIDRT [facility] Aspirin (Halfprin) 81 mg PO DAILY [facility] Enoxaparin Sodium (Lovenox) 40 mg SUBCUT Q24H [facility] Lactated Ringer's (Ringers, Lactated) 1,000 mls @ 125 mls/hr IV ASDIRECTED [facility] Levofloxacin/Dextrose 750 mg/ (Premix) 150 mls @ 100 mls/hr IV Q24H RENEA Loratadine (Claritin) 10 mg PO DAILY PRN PRN Reason: Allergies Methylprednisolone Sodium Succinate (Solu-Medrol) 40 mg IVPUSH Q6H [facility] Montelukast Sodium (Singulair) 10 mg PO DAILY PRN PRN Reason: shortness breath Ondansetron HCl (Zofran) 4 mg IV Q4H PRN PRN Reason: Nausea/Vomiting Oxycodone HCl (Oxycodone) 5 mg PO Q4H PRN PRN Reason: Pain (moderate 4-6) Pantoprazole Sodium (Protonix) 40 mg PO ACBREAKFAST [facility] Polyethylene Glycol (Miralax) 17 gm PO DAILY PRN PRN Reason: Constipation Rosuvastatin Calcium (Crestor) 5 mg PO DAILY [facility] Fluticasone/Salmeterol (Fluticasone-Salmeterol 232-14 Mcg Powder Inha) 0 puff INH BIDRT [facility] Sodium Chloride (Saline Flush) 10 ml FLUSH ASDIRECTED PRN PRN Reason: Keep Vein Open Assessment/Plan Comment:: ASSESSMENT AND PLAN VIRAL GASTROENTERITIS--most likely cause of current symptoms including nausea, vomiting, diarrhea, and abdominal pain. Also causing weakness and dehydration. CT scan of the abdomen and pelvis showed no evidence of intra-abdominal infection. -Pain and nausea medication as needed -IV fluids for hydration COPD EXACERBATION-history of viral upper respiratory tract infection over the past 4 weeks. Chest x-ray shows no evidence of pneumonia. -Repeat chest x-ray in a.m. -Continue usual outpatient medications -Solu-Medrol 40 mg IV every 6 hours -Levofloxacin 750 mg IV every 24 hours, pending follow-up chest x-ray LEUKOCYTOSIS-likely secondary to recent increase in glucocorticoid therapy -Follow-up labs in a.m. MAINTENANCE ISSUES -DVT prophylaxis; Lovenox 40 mg subcutaneous daily -GI prophylaxis; not indicated -Kramer catheter; not indicated -Nutrition; regular diet -Nicotine dependence; not required CODE STATUS-FULL CODE ADMISSION STATUS-patient will be admitted to inpatient status, expect at least a 2 night hospital stay for evaluation and management of problems as outlined above. At the time of this admission I do not reasonably expected evaluation and management of this problem will require more than a 96 hour hospital stay. DISPOSITION-anticipate discharge to home after the hospital stay. PRIMARY CARE PROVIDER-Dr. Tineo - Mortality Measure Prognosis:: Good
[2019-04-01] MEDS: Lactated Ringers 1,000 ML IV SCH ×2 (15:00→23:18)
[2019-04-01] MEDS: methylPREDNISolone Sodium Succinate 40 MG/1 ML SDV IVPUSH SCH ×2 (15:01→22:16)
[2019-04-01] MEDS: Enoxaparin 40 MG/0.4 ML Syringe SUBCUT SCH (15:01)
[2019-04-01] MEDS: oxyCODONE 5 MG Tab PO PRN ×2 (16:25→22:14)
[2019-04-01] MEDS: Arformoterol 15 MCG/2 ML Neb Soln INH SCH (21:39)
[2019-04-01] MEDS: BUDESONIDE INH SCH (21:40)
[2019-04-01] MEDS: FORMOTEROL INH SCH (21:40)
[2019-04-02] MEDS: methylPREDNISolone Sodium Succinate 40 MG/1 ML SDV IVPUSH SCH ×2 (04:20→09:31)
--- NOTE | 2019-04-02 05:47 | CRLCR ---
INDICATION: Fever, leukocytosis, dyspnea TECHNIQUE: Chest radiograph 2 views COMPARISON: 04/01/19 FINDINGS: Mediastinum: Moderate, stable sliding type gastric hiatal hernia (type IV) is present. The heart silhouette is normal in size and morphology. Lung: Mild bibasilar atelectasis is present with interval development of small bilateral pleural effusions. No pneumothorax is identified. Bone and Soft tissue: Unremarkable for age. IMPRESSIONS: 1. Moderate, stable sliding type gastric hiatal hernia (type IV) is present. 2. Mild bibasilar atelectasis is present with interval development of small bilateral pleural effusions. Dictated by Adam Charles MD @ 04/02/2019 5:47:07 AM Dictated by: Adam Charles MD @ 04/02/2019 05:47:14 (Electronically Signed)
[2019-04-02] MEDS: Lactated Ringers 1,000 ML IV SCH (07:18)
[2019-04-02] MEDS: Arformoterol 15 MCG/2 ML Neb Soln INH SCH ×2 (07:31→20:07)
[2019-04-02] MEDS: FORMOTEROL INH SCH ×3 (07:31→20:07)
[2019-04-02] MEDS: BUDESONIDE INH SCH ×3 (07:31→20:07)
[2019-04-02] MEDS: Albuterol/Ipratropium 3.0-0.5 MG/3 ML Neb Soln NEB SCH ×4 (07:31→20:20)
[2019-04-02] MEDS: Rosuvastatin 10 MG Tab PO SCH (08:41)
[2019-04-02] MEDS: Pantoprazole 40 MG Tab.CR PO SCH (08:41)
[2019-04-02] MEDS: Aspirin 81 MG Tab.EC PO SCH (08:41)
--- NOTE | 2019-04-02 09:12 | CRLCT ---
Indication: Pain, early sepsis. Technique: CT from the lung bases to the pubic symphysis obtained after the uneventful administration of intravenous contrast. Contrast: 100 cc Isovue IV. Please note that all CT scans at this facility use dose modulation, iterative reconstruction, and/or weight-based dosing when appropriate to reduce radiation dose to as low as reasonably achievable. Comparison: CT abdomen and pelvis 09/07/2015. Findings: Hepatobiliary: There is a 1 centimeter cyst in the lateral segment of the left lobe of the liver. Remaining portions of the liver demonstrate normal enhancement. The hepatic veins and the portal veins are patent. Gallbladder is normal. Spleen: Normal. Pancreas: Normal enhancement. There is no evidence of mass. Adrenal glands: Right and left adrenal gland are normal. There is no evidence of mass. Kidneys: Bilateral calculi are seen. There is no evidence of hydronephrosis or suspicious mass. Pelvis: The urinary bladder is normal. GI: The colon and small bowel are normal. There is a large gastric hiatal hernia. Vessels/lymph nodes: There is no intraperitoneal or retroperitoneal adenopathy. Vessels are normal. Soft tissues: There postoperative changes from anterior abdominal ventral hernia repair. Bones: There are no lytic or blastic bone lesions. Impression: 1. Large gastric hiatal hernia. 2. Bilateral nephrolithiasis. No evidence of obstruction or hydronephrosis. Please note that all CT scans at this facility use dose modulation, iterative reconstruction, and/or weight-based dosing when appropriate to reduce radiation dose to as low as reasonably achievable. Dictated by Bryson South MD @ Apr 01 2019 10:55AM Signed by Dr. Bryson South @ Apr 01 2019 11:26AM
[2019-04-02] MEDS ORDERED: Levofloxacin/Dextrose 5%-Water 750 MG in Premix Bag 1 BAG IV SCH ×2 (11:00→14:00)
--- NOTE | 2019-04-02 14:44 | PCM.PN ---
- General Info Date of Service: 04/02/19 Subjective Update: Mr. Obrien has improved significantly from admission, nausea, vomiting, and diarrhea, have essentially resolved. Vital signs have been good and he has remained afebrile. Respiratory status stable from admission, follow-up chest x- ray showed no obvious infiltrate. - Review of Systems General: Reports: Weakness. Denies: Fever, Chills Pulmonary: Reports: Shortness of Breath, Cough, Wheezing. Denies: Pleuritic Chest Pain, Sputum, Hemoptysis Cardiovascular: Reports: Dyspnea on Exertion. Denies: Chest Pain, Palpitations , Orthopnea, PND, Edema, Lightheadedness Gastrointestinal: Reports: No Symptoms - Patient Data Vitals - Most Recent: Last Vital Signs Temp 99.1 F 04/02/19 11:15 Pulse 96 04/02/19 11:15 Resp 18 04/02/19 11:15 BP 132/64 04/02/19 11:15 Pulse Ox 93 L 04/02/19 13:22 Weight - Most Recent: 159 lb 3.2 oz I&O - Last 24 Hours: Intake & Output 04/01/19 04/02/19 04/02/19 22:59 06:59 14:59 Intake Total 1397 400 390 Balance 1397 400 390 Lab Results Last 24 Hours: Laboratory Results - last 24 hr 04/02/19 04/02/19 Range/Units 05:30 05:30 WBC 11.2 H (4.5-11.0) K/uL RBC 5.61 (4.30-5.90) M/uL Hgb 12.3 D (12.0-15.0) g/dL Hct 42.5 (40.0-54.0) % MCV 76 L (80-98) fL MCH 22 L (27-31) pg MCHC 29 L (32-36) % Plt Count 276 (150-400) K/uL Neut % (Auto) 97 H (36-66) % Lymph % (Auto) 1 L (24-44) % [place] % (Auto) 2 (2-6) % Eos % (Auto) 0 L (2-4) % Baso % (Auto) 0 (0-1) % Sodium 139 L (140-148) mmol/L Potassium 4.1 (3.6-5.2) mmol/L Chloride 104 (100-108) mmol/L Carbon Dioxide 27 (21-32) mmol/L Anion Gap 12.1 (5.0-14.0) mmol/L BUN 13 (7-18) mg/dL Creatinine 1.0 (0.8-1.3) mg/dL Est Cr Clr Drug Dosing 62.91 mL/min Estimated GFR (MDRD) > 60 (>60) Glucose 142 H (74-106) mg/dL Calcium 7.8 L (8.5-10.1) mg/dL [place] Results Last 24 Hours: Microbiology 04/01/19 07:59 Aerobic Blood Culture - Preliminary Blood - Arm, Left NO GROWTH AFTER 1 DAY Anaerobic Blood Culture - Preliminary NO GROWTH AFTER 1 DAY 04/01/19 07:53 Aerobic Blood Culture - Preliminary Blood - Venous - Iv Start NO GROWTH AFTER 1 DAY Anaerobic Blood Culture - Preliminary NO GROWTH AFTER 1 DAY Med Orders - Current: Current Medications Acetaminophen (Tylenol) 650 mg PO Q4H PRN PRN Reason: Pain (Mild 1-3)/fever Albuterol (Proventil Neb Soln) 2.5 mg INH Q4H PRN PRN Reason: Shortness of Breath Albuterol/Ipratropium (Duoneb 3.0-0.5 Mg/3 Ml) 3 ml NEB QIDRT [facility] Last Admin: 04/02/19 10:54 Dose: 3 ml Arformoterol Tartrate (Brovana) 15 mcg INH BIDRT [facility] Last Admin: 04/02/19 07:31 Dose: 15 mcg Aspirin (Halfprin) 81 mg PO DAILY [facility] Last Admin: 04/02/19 08:41 Dose: 81 mg Enoxaparin Sodium (Lovenox) 40 mg SUBCUT Q24H [facility] Last Admin: 04/01/19 15:01 Dose: 40 mg Loratadine (Claritin) 10 mg PO DAILY PRN PRN Reason: Allergies Montelukast Sodium (Singulair) 10 mg PO DAILY PRN PRN Reason: shortness breath Ondansetron HCl (Zofran) 4 mg IV Q4H PRN PRN Reason: Nausea/Vomiting Last Admin: 04/01/19 23:37 Dose: 4 mg Oxycodone HCl (Oxycodone) 5 mg PO Q4H PRN PRN Reason: Pain (moderate 4-6) Last Admin: 04/01/19 22:14 Dose: 5 mg Pantoprazole Sodium (Protonix) 40 mg PO ACBREAKFAST [facility] Last Admin: 04/02/19 08:41 Dose: 40 mg Polyethylene Glycol (Miralax) 17 gm PO DAILY PRN PRN Reason: Constipation Prednisone (Prednisone) 20 mg PO WITHBREAKFAST [facility] Rosuvastatin Calcium (Crestor) 5 mg PO DAILY [facility] Last Admin: 04/02/19 08:41 Dose: 5 mg Fluticasone/Salmeterol (Fluticasone-Salmeterol 232-14 Mcg Powder Inha) 0 puff INH BIDRT [facility] Last Admin: 04/02/19 07:31 Dose: 1 puff Sodium Chloride (Saline Flush) 10 ml FLUSH ASDIRECTED PRN PRN Reason: Keep Vein Open Discontinued Medications Fentanyl (Sublimaze) 50 mcg IVPUSH ONETIME ONE Stop: 04/01/19 13:29 Last Admin: 04/01/19 13:46 Dose: 50 mcg Lactated Ringer's (Ringers, Lactated) 1,000 mls @ 999 mls/hr IV ASDIRECTED [facility] Last Admin: 04/01/19 07:56 Dose: 999 mls/hr Levofloxacin/Dextrose 750 mg/ (Premix) 150 mls @ 100 mls/hr IV Q24H [facility] Last Admin: 04/01/19 08:59 Dose: 100 mls/hr Lactated Ringer's (Ringers, Lactated) 1,000 mls @ 999 mls/hr IV BOLUS ONE Stop: 04/01/19 10:03 Last Admin: 04/01/19 09:20 Dose: 999 mls/hr Sodium Chloride (Normal Saline) 100 mls @ 3 mls/sec IV ASDIRECTED [facility] Last Admin: 04/01/19 10:21 Dose: 3 mls/sec Lactated Ringer's (Ringers, Lactated) 1,000 mls @ 250 mls/hr IV BOLUS ONE Stop: 04/01/19 14:34 Last Admin: 04/01/19 10:43 Dose: 250 mls/hr Lactated Ringer's (Ringers, Lactated) 1,000 mls @ 125 mls/hr IV ASDIRECTED [facility] Last Admin: 04/02/19 07:18 Dose: 125 mls/hr Levofloxacin/Dextrose 750 mg/ (Premix) 150 mls @ 100 mls/hr IV Q24H [facility] Last Admin: 04/02/19 11:31 Dose: 100 mls/hr Iopamidol (Isovue-300 (61%)) 100 ml IV . DIRECTED [facility] Last Admin: 04/01/19 10:21 Dose: 100 ml Ketorolac Tromethamine (Toradol) 30 mg IVPUSH ONETIME ONE Stop: 04/01/19 07:48 Last Admin: 04/01/19 07:59 Dose: 30 mg Methylprednisolone Sodium Succinate (Solu-Medrol) 40 mg IVPUSH Q6H [facility] Last Admin: 04/02/19 09:31 Dose: 40 mg Ondansetron HCl (Zofran) 4 mg IVPUSH ONETIME ONE Stop: 04/01/19 07:47 Last Admin: 04/01/19 07:56 Dose: 4 mg Ondansetron HCl (Zofran) Confirm Administered Dose 4 mg .ROUTE .STK-MED ONE Stop: 04/01/19 07:49 Last Admin: 04/01/19 08:01 Dose: Not Given Sodium Chloride (Saline Flush) 10 ml FLUSH ASDIRECTED PRN PRN Reason: Keep Vein Open Last Admin: 04/01/19 10:17 Dose: 10 ml Sodium Chloride (Saline Flush) 10 ml FLUSH ONETIME ONE Stop: 04/01/19 10:18 Last Admin: 04/01/19 10:44 Dose: Not Given - Exam Quality Assessment: Supplemental Oxygen, DVT Prophylaxis General: Alert, Oriented, Cooperative, Mild Distress Lungs: Clear to Auscultation, Normal Respiratory Effort Cardiovascular: Regular Rate, Regular Rhythm, No Murmurs GI/Abdominal Exam: Soft, No Organomegaly, Tender. No: Distended, Guarding, Rigid, Rebound Extremities: Non-Tender, No Pedal Edema - Problem List Review Problem List Initiated/Reviewed/Updated: Yes - My Orders Last 24 Hours: My Active Orders 04/01/19 13:49 Patient Status [ADT] Routine Ambulate [RC] QID Height and Weight [RC] 0500 Intake and Output [RC] QSHIFT Notify Provider Vital Signs [RC] ASDIRECTED Oxygen Therapy [RC] PRN Peripheral IV Care [RC] Q12H Pulse Oximetry [RC] CONTINUOUS RT Aerosol Therapy [RC] ASDIRECTED Up to Chair [RC] QID VTE/DVT Education [RC] Per Unit Routine Vital Signs [RC] Q4H CULTURE RESPIRATORY + SMEAR [RM] Stat Acetaminophen [Tylenol] 650 mg PO Q4H PRN Albuterol [Proventil Neb Soln] 2.5 mg INH Q4H PRN Loratadine [Claritin] 10 mg PO DAILY PRN Montelukast [Singulair] 10 mg PO DAILY PRN Ondansetron [Zofran] 4 mg IV Q4H PRN Polyethylene Glycol 3350 [MiraLAX] 17 gm PO DAILY PRN Sodium Chloride 0.9% [Saline Flush] 10 ml FLUSH ASDIRECTED PRN oxyCODONE 5 mg PO Q4H PRN Peripheral IV Insertion Adult [OM.PC] Routine 04/01/19 15:00 Albuterol/Ipratropium [DuoNeb 3.0-0.5 MG/3 ML] 3 ml NEB QIDRT 04/01/19 16:00 Enoxaparin [Lovenox] 40 mg SUBCUT Q24H 04/01/19 21:00 Arformoterol [Brovana] 15 mcg INH BIDRT Fluticasone/Salmeterol [Fluticasone-Salmeterol 232-14 MCG Powder Inha] 0 puff INH BIDRT 04/02/19 09:00 Aspirin [Halfprin] 81 mg PO DAILY Pantoprazole [ProTONIX] 40 mg PO ACBREAKFAST Rosuvastatin [Crestor] 5 mg PO DAILY 04/02/19 14:34 Convert IV to Saline Lock [OM.PC] Routine 04/03/19 08:00 predniSONE 20 mg PO WITHBREAKFAST - Plan Plan:: ASSESSMENT AND PLAN VIRAL GASTROENTERITIS-to give him improved from admission with almost total resolution of nausea, vomiting, and diarrhea. Afebrile with stable vital signs, mild to moderate persistent abdominal pain -Pain and nausea medication as needed -Name lock IV COPD EXACERBATION-history of viral upper respiratory tract infection over the past 4 weeks. Follow-up chest x-ray after hydration shows no obvious infiltrate -Continue usual outpatient medications -Discontinue Solu-Medrol 40 mg IV every 6 hours -Discontinue Levofloxacin 750 mg IV every 24 hours, pending follow-up chest x- ray -Prednisone 20 mg by mouth daily LEUKOCYTOSIS-likely secondary to recent increase in glucocorticoid therapy, significantly improved from admission MAINTENANCE ISSUES -DVT prophylaxis; Lovenox 40 mg subcutaneous daily -GI prophylaxis; not indicated -Kramer catheter; not indicated -Nutrition; regular diet -Nicotine dependence; not required CODE STATUS-FULL CODE ADMISSION STATUS-patient will be admitted to inpatient status, expect at least a 2 night hospital stay for evaluation and management of problems as outlined above. At the time of this admission I do not reasonably expected evaluation and management of this problem will require more than a 96 hour hospital stay. DISPOSITION-anticipate discharge to home after the hospital stay. PRIMARY CARE PROVIDER-Dr. Tineo
[2019-04-02] MEDS: Enoxaparin 40 MG/0.4 ML Syringe SUBCUT SCH (16:26)
[2019-04-02] MEDS: oxyCODONE 5 MG Tab PO PRN (22:53)
[2019-04-03] MEDS: BUDESONIDE INH SCH (07:05)
[2019-04-03] MEDS: FORMOTEROL INH SCH (07:05)
[2019-04-03] MEDS: Albuterol/Ipratropium 3.0-0.5 MG/3 ML Neb Soln NEB SCH ×2 (07:05→10:38)
[2019-04-03] MEDS: Arformoterol 15 MCG/2 ML Neb Soln INH SCH (07:05)
[2019-04-03] MEDS ORDERED: predniSONE 20 MG Tab PO SCH (08:00)
[2019-04-03] MEDS: Aspirin 81 MG Tab.EC PO SCH (08:05)
[2019-04-03] MEDS: Rosuvastatin 10 MG Tab PO SCH (08:05)
[2019-04-03] MEDS: Pantoprazole 40 MG Tab.CR PO SCH (08:05)
[2019-04-03 08:09] VITALS: BP 153/75; PULSE 107
--- NOTE | 2019-04-03 12:42 | PCM.DCSUM1 ---
Discharge Summary - Hospital Course Brief History: Mr. Obrien is a 68-year-old gentleman who was admitted through the emergency department with dehydration and weakness, with nausea, vomiting, and diarrhea, secondary to viral gastroenteritis. - Discharge Data Discharge Date: 04/03/19 Discharge Disposition: Home, Self-Care 01 Condition: Fair - Referral to Home Health Primary Care Physician: Bimal Tineo MD - Discharge Diagnosis/Problem(s) (1) Viral gastroenteritis SNOMED Code(s): 808215855 ICD Code: A08.4 - VIRAL INTESTINAL INFECTION, UNSPECIFIED Status: Acute Current Visit: Yes (2) COPD exacerbation SNOMED Code(s): 401446361 ICD Code: J44.1 - CHRONIC OBSTRUCTIVE PULMONARY DISEASE W (ACUTE) EXACERBATION Status: Acute Current Visit: Yes - Patient Summary/Data Hospital Course: Mr. Obrien is a 68-year-old gentleman who was admitted through the emergency department with weakness, dehydration, nausea, vomiting, and diarrhea, secondary to viral gastroenteritis. Over the past month he's had difficulty with a viral upper respiratory tract infection and increased shortness of breath complicating his underlying COPD. Week ago he was seen in the clinic and started on antibiotic therapy with an increase in prednisone to 80 mg daily. Respiratory status is been stable over the past week although he is not noted significant improvement with the antibiotic. Last night he developed abrupt onset of nausea, vomiting, and diarrhea with abdominal pain. He presented to the emergency department this morning, white blood cell count noted to be significantly elevated at 24,000. Chest x-ray and abdominal x-ray showed no obvious abnormalities. CT scan of the abdomen showed no obvious source of active infection. Elevated white blood cell count is thought to be secondary to recent increase in glucocorticoid therapy. On admission he was given IV fluids for hydration as well as pain medication and medication for nausea. Because of question of possible respiratory tract infection he was placed on IV antibiotic therapy with levofloxacin and IV Solu-Medrol. Follow-up chest x-ray in the day after admission showed no obvious infiltrate after hydration. IV antibiotic therapy and Solu-Medrol were discontinued. He was started on oral prednisone. By the day of discharge she was feeling significantly improved with total resolution of nausea, vomiting, and diarrhea. Respiratory status improved modestly and he was close to baseline at the time of discharge. Activity will be as tolerated and he will resume his usual diet and outpatient medications. Follow-up appointment will be scheduled with his primary care provider within one week. - Patient Instructions Diet: Usual Diet as Tolerated Activity: As Tolerated Other/Special Instructions: Please schedule follow-up appointment with Dr. Tineo within one week - Discharge Plan *PRESCRIPTION DRUG MONITORING PROGRAM REVIEWED*: Not Applicable *COPY OF PRESCRIPTION DRUG MONITORING REPORT IN PATIENT WILL: Not Applicable Home Medications: Home Meds Budesonide/Formoterol [Symbicort 160-4.5 MCG] 2 puff INH BID 05/06/13 [History] Fexofenadine [Purnima] 60 mg PO DAILY PRN 05/06/13 [History] Montelukast [Singulair] 10 mg PO DAILY PRN 05/06/13 [History] Albuterol Sulfate [Proair Hfa] 2 puff IH QID 08/13/16 [History] Albuterol [Proventil Neb Soln] 2.5 mg IH Q4H PRN 08/13/16 [History] Esomeprazole [NexIUM] 20 mg PO DAILY 08/13/16 [History] Testosterone Cypionate 200 mg IM Q14D 08/13/16 [History] Umeclidinium [place] [Incruse Ellipta] 1 puff IH DAILY 08/13/16 [History] predniSONE [Prednisone] 40 mg PO DAILY 09/21/16 [History] Aspirin [Halfprin] 81 mg PO DAILY 09/09/18 [History] oxyCODONE HCl/Acetaminophen [Percocet 5-325 mg Tablet] 1 each PO Q12HR PRN #14 tablet 09/09/18 [Rx] hydrOXYzine HCl [hydrOXYzine] 25 mg PO Q8H PRN #40 tab 09/11/18 [Rx] Arformoterol [Brovana] 2 ml IH BID 12/25/18 [History] Budesonide [Pulmicort] 2 ml IH BID 12/25/18 [History] Ipratropium [Atrovent] 2.5 ml IH TID 12/25/18 [History] Rosuvastatin Calcium 5 mg PO DAILY 12/25/18 [History] Doxycycline [Vibramycin] 100 mg PO BID 04/01/19 [History] L Acidophil/B Lactis/B Longum [Florajen3] 1 cap PO DAILY 04/01/19 [History] Nystatin 5 ml PO QID 04/01/19 [History] Referrals: Bimal Tineo MD [Primary Care Provider] - - Discharge Summary/Plan Comment DC Time >30 min.: No - Patient Data Vitals - Most Recent: Last Vital Signs Temp 97.0 F 04/03/19 08:07 Pulse 107 H 04/03/19 08:07 Resp 18 04/03/19 08:07 BP 153/75 H 04/03/19 08:07 Pulse Ox 92 L 04/03/19 08:07 Weight - Most Recent: 159 lb 3.2 oz I&O - Last 24 hours: Intake & Output 04/02/19 04/03/19 04/03/19 22:59 06:59 14:59 Intake Total 600 860 Balance 600 860 FERNANDO Results - Last 24 hrs: Microbiology 04/01/19 07:59 Aerobic Blood Culture - Preliminary Blood - Arm, Left NO GROWTH AFTER 2 DAYS Anaerobic Blood Culture - Preliminary NO GROWTH AFTER 2 DAYS 04/01/19 07:53 Aerobic Blood Culture - Preliminary Blood - Venous - Iv Start NO GROWTH AFTER 2 DAYS Anaerobic Blood Culture - Preliminary NO GROWTH AFTER 2 DAYS Med Orders - Current: Current Medications Acetaminophen (Tylenol) 650 mg PO Q4H PRN PRN Reason: Pain (Mild 1-3)/fever Albuterol (Proventil Neb Soln) 2.5 mg INH Q4H PRN PRN Reason: Shortness of Breath Albuterol/Ipratropium (Duoneb 3.0-0.5 Mg/3 Ml) 3 ml NEB QIDRT [facility] Last Admin: 04/03/19 10:38 Dose: 3 ml Arformoterol Tartrate (Brovana) 15 mcg INH BIDRT [facility] Last Admin: 04/03/19 07:05 Dose: 15 mcg Aspirin (Halfprin) 81 mg PO DAILY [facility] Last Admin: 04/03/19 08:05 Dose: 81 mg Enoxaparin Sodium (Lovenox) 40 mg SUBCUT Q24H [facility] Last Admin: 04/02/19 16:26 Dose: 40 mg Loratadine (Claritin) 10 mg PO DAILY PRN PRN Reason: Allergies Montelukast Sodium (Singulair) 10 mg PO DAILY PRN PRN Reason: shortness breath Ondansetron HCl (Zofran) 4 mg IV Q4H PRN PRN Reason: Nausea/Vomiting Last Admin: 04/01/19 23:37 Dose: 4 mg Oxycodone HCl (Oxycodone) 5 mg PO Q4H PRN PRN Reason: Pain (moderate 4-6) Last Admin: 04/02/19 22:53 Dose: 5 mg Pantoprazole Sodium (Protonix) 40 mg PO ACBREAKFAST [facility] Last Admin: 04/03/19 08:05 Dose: 40 mg Polyethylene Glycol (Miralax) 17 gm PO DAILY PRN PRN Reason: Constipation Prednisone (Prednisone) 20 mg PO WITHBREAKFAST [facility] Last Admin: 04/03/19 08:04 Dose: 20 mg Rosuvastatin Calcium (Crestor) 5 mg PO DAILY [facility] Last Admin: 04/03/19 08:05 Dose: 5 mg Fluticasone/Salmeterol (Fluticasone-Salmeterol 232-14 Mcg Powder Inha) 0 puff INH BIDRT [facility] Last Admin: 04/03/19 07:05 Dose: 1 puff Sodium Chloride (Saline Flush) 10 ml FLUSH ASDIRECTED PRN PRN Reason: Keep Vein Open Discontinued Medications Fentanyl (Sublimaze) 50 mcg IVPUSH ONETIME ONE Stop: 04/01/19 13:29 Last Admin: 04/01/19 13:46 Dose: 50 mcg Lactated Ringer's (Ringers, Lactated) 1,000 mls @ 999 mls/hr IV ASDIRECTED [facility] Last Admin: 04/01/19 07:56 Dose: 999 mls/hr Levofloxacin/Dextrose 750 mg/ (Premix) 150 mls @ 100 mls/hr IV Q24H [facility] Last Admin: 04/01/19 08:59 Dose: 100 mls/hr Lactated Ringer's (Ringers, Lactated) 1,000 mls @ 999 mls/hr IV BOLUS ONE Stop: 04/01/19 10:03 Last Admin: 04/01/19 09:20 Dose: 999 mls/hr Sodium Chloride (Normal Saline) 100 mls @ 3 mls/sec IV ASDIRECTED [facility] Last Admin: 04/01/19 10:21 Dose: 3 mls/sec Lactated Ringer's (Ringers, Lactated) 1,000 mls @ 250 mls/hr IV BOLUS ONE Stop: 04/01/19 14:34 Last Admin: 04/01/19 10:43 Dose: 250 mls/hr Lactated Ringer's (Ringers, Lactated) 1,000 mls @ 125 mls/hr IV ASDIRECTED [facility] Last Admin: 04/02/19 07:18 Dose: 125 mls/hr Levofloxacin/Dextrose 750 mg/ (Premix) 150 mls @ 100 mls/hr IV Q24H [facility] Last Admin: 04/02/19 11:31 Dose: 100 mls/hr Iopamidol (Isovue-300 (61%)) 100 ml IV . DIRECTED [facility] Last Admin: 04/01/19 10:21 Dose: 100 ml Ketorolac Tromethamine (Toradol) 30 mg IVPUSH ONETIME ONE Stop: 04/01/19 07:48 Last Admin: 04/01/19 07:59 Dose: 30 mg Methylprednisolone Sodium Succinate (Solu-Medrol) 40 mg IVPUSH Q6H [facility] Last Admin: 04/02/19 09:31 Dose: 40 mg Ondansetron HCl (Zofran) 4 mg IVPUSH ONETIME ONE Stop: 04/01/19 07:47 Last Admin: 04/01/19 07:56 Dose: 4 mg Ondansetron HCl (Zofran) Confirm Administered Dose 4 mg .ROUTE .STK-MED ONE Stop: 04/01/19 07:49 Last Admin: 04/01/19 08:01 Dose: Not Given Sodium Chloride (Saline Flush) 10 ml FLUSH ASDIRECTED PRN PRN Reason: Keep Vein Open Last Admin: 04/01/19 10:17 Dose: 10 ml Sodium Chloride (Saline Flush) 10 ml FLUSH ONETIME ONE Stop: 04/01/19 10:18 Last Admin: 04/01/19 10:44 Dose: Not Given - Exam General: Reports: Alert, Oriented, Cooperative, No Acute Distress Lungs: Reports: Clear to Auscultation, Normal Respiratory Effort, Decreased Breath Sounds. Denies: Wheezing Cardiovascular: Reports: Regular Rate, Regular Rhythm, No Murmurs GI/Abdominal Exam: Soft, Non-Tender, No Organomegaly, No Distention Extremities: Non-Tender, No Pedal Edema
== END 2019-04-03 13:21 | disposition home or self-care (01) | DRG 392 ==
LOC: JP.ED 07:20 → JP.MS 13:03
PROVIDERS: ADMIT Hospitalist; ATTEND Hospitalist
DX: A41.9 Sepsis, unspecified organism (principal); R65.20 Severe sepsis without septic shock; J96.01 Acute respiratory failure with hypoxia; A08.4 Viral intestinal infection, unspecified; J44.1 Chronic obstructive pulmonary disease with (acute) exacerbation; J44.9 Chronic obstructive pulmonary disease, unspecified; H54.7 Unspecified visual loss; K44.9 Diaphragmatic hernia without obstruction or gangrene; E78.00 Pure hypercholesterolemia, unspecified; K52.9 Noninfective gastroenteritis and colitis, unspecified; Z96.619 Presence of unspecified artificial shoulder joint; K21.9 Gastro-esophageal reflux disease without esophagitis; M19.90 Unspecified osteoarthritis, unspecified site; Z96.611 Presence of right artificial shoulder joint; D72.829 Elevated white blood cell count, unspecified; T38.0X5A Adverse effect of glucocorticoids and synthetic analogues, initial encounter; Z79.899 Other long term (current) drug therapy; Z79.52 Long term (current) use of systemic steroids; Z79.82 Long term (current) use of aspirin; Z79.51 Long term (current) use of inhaled steroids; Z88.8 Allergy status to other drugs, medicaments and biological substances; Z88.5 Allergy status to narcotic agent; Z88.0 Allergy status to penicillin; Z88.6 Allergy status to analgesic agent; Z91.013 Allergy to seafood; Z98.49 Cataract extraction status, unspecified eye; Z90.89 Acquired absence of other organs; Z87.891 Personal history of nicotine dependence; Z98.890 Other specified postprocedural states; Z86.010 Personal history of colon polyps; Z89.9 Acquired absence of limb, unspecified
CPT/HCPCS: 36415; 71046; 74018; 74177; 80053; 81001; 83605; 83615; 84145; 84484; 85025; 86140; 87040 ×2; 87804 ×2; 93005; 96361; 96365; 99285; J1885; J1956; J2405; J7030; J7120 ×3; Q9967; 80048; 93010; 94640; 94762; 96360; A9270-GY; J1650; J2920; J3010; J7605; J7620-GY

== ENCOUNTER 2020-12-22 01:15 | Emergency (ER) | payer MEDICARE ==
[2020-12-22 01:25] VITALS: BP 172/97; PULSE 133
[2020-12-22] MEDS ORDERED: Albuterol/Ipratropium 3.0-0.5 MG/3 ML Neb Soln NEB ONE (01:26)
[2020-12-22] MEDS ORDERED: methylPREDNISolone Sodium Succinate 125 MG/2 ML SDV IVPUSH ONE (01:26)
[2020-12-22] MEDS ORDERED: Sodium Chloride 0.9% 10 ML Syringe FLUSH PRN (01:26)
[2020-12-22 02:35] LABS: CORONAVIRUS COVID-19 NAA NEGATIVE (NEGATIVE)
--- NOTE | 2020-12-22 02:56 | EDM.PDOC ---
ED HPI GENERAL MEDICAL PROBLEM - General Chief Complaint: Respiratory Problem Stated Complaint: COPD Time Seen by Provider: 12/22/20 01:25 Source of Information: Reports: Patient History Limitations: Reports: No Limitations - History of Present Illness INITIAL COMMENTS - FREE TEXT/NARRATIVE: Eliot is a 70-year-old male presenting to the ED for evaluation of increasing dyspnea today. The patient has not been feeling well for over a week and complains of headache, fever and chills, nonproductive cough and increasing shortness of breath. He has a history of COPD and is put on a 1 week course of doxycycline at the end of each month. He just completed that last week at which time he then started to develop increasing shortness of breath, fever and chills, and a nonproductive cough. Although he has had a fever, he has not checked his temperature. Patient is vaccinated for Covid. He has been careful about where he goes and is not aware of any exposures. - Related Data Allergies Allergy/AdvReac Type Severity Reaction Status Date / Time atorvastatin Allergy Cannot Verified 12/22/20 01:26 Remember hydrocodone Allergy Cannot Verified 12/22/20 01:26 Remember Penicillins Allergy Rash Verified 12/22/20 01:26 ibuprofen AdvReac Nausea Verified 12/22/20 01:26 lansoprazole [From Prevacid] AdvReac Diarrhea Verified 12/22/20 01:26 ranitidine HCl [From Zantac] AdvReac Diarrhea Verified 12/22/20 01:26 shrimp AdvReac Nausea and Verified 12/22/20 01:26 Vomiting perch AdvReac Nausea and Uncoded 12/22/20 01:26 Vomiting pickle weinstein AdvReac Nausea and Uncoded 12/22/20 01:26 Vomiting [place]leye AdvReac Nausea and Uncoded 12/22/20 01:26 Vomiting Home Meds: Home Meds Fexofenadine [Purnima] 60 mg PO DAILY PRN 05/06/13 [History] Albuterol Sulfate [Proair Hfa] 2 puff IH QID 08/13/16 [History] Albuterol [Proventil Neb Soln] 2.5 mg IH Q4H PRN 08/13/16 [History] Esomeprazole [NexIUM] 20 mg PO DAILY 08/13/16 [History] Testosterone Cypionate 200 mg IM Q14D 08/13/16 [History] Umeclidinium [place] [Incruse Ellipta] 1 puff IH DAILY 08/13/16 [History] predniSONE [Prednisone] 10 mg PO DAILY 09/21/16 [History] Aspirin [Halfprin] 81 mg PO DAILY 09/09/18 [History] hydrOXYzine HCL [hydrOXYzine] 25 mg PO Q8H PRN #40 tab 09/11/18 [Rx] Rosuvastatin Calcium 5 mg PO ASDIRECTED 12/25/18 [History] Doxycycline [Vibramycin] 100 mg PO BID 04/01/19 [History] Fluticasone/Umeclidin/Vilanter [Trelegy Ellipta 100-62.5-25] 1 inh INH DAILY 12/22/20 [History] Past Medical History HEENT History: Reports: Allergic Rhinitis, Cataract, Impaired Vision Cardiovascular History: Reports: Arrhythmia, High Cholesterol Respiratory History: Reports: Asthma, COPD, SOB Gastrointestinal History: Reports: Chronic Diarrhea, Colon Polyp, GERD, Hiatal Hernia Other Gastrointestinal History: acid reflux Genitourinary History: Reports: Prostate Disorder, Renal Calculus Musculoskeletal History: Reports: Amputation, Arthritis, Fracture, Other (See Below) Other Musculoskeletal History: wrist fx r great toe fx left shoulder. R shoulder pain Neurological History: Reports: None Psychiatric History: Reports: None Endocrine/Metabolic History: Reports: None Hematologic History: Reports: None Immunologic History: Reports: None Oncologic (Cancer) History: Reports: None Dermatologic History: Reports: Eczema - Infectious Disease History Infectious Disease History: Reports: C-Difficile, Chicken Pox, Measles, Mumps, Shingles - Past Surgical History HEENT Surgical History: Reports: Adenoidectomy, Cataract Surgery, Tonsillectomy Cardiovascular Surgical History: Reports: None Respiratory Surgical History: Reports: None GI Surgical History: Reports: Colonoscopy, EGD, Hernia, Abdominal, Hernia, Inguinal, Polypectomy Male Surgical History: Reports: Prostate Biopsy, TURP-Transurethral Resection of Prostate Musculoskeletal Surgical History: Reports: Amputation, Shoulder Replacement, Shoulder Surgery Dermatological Surgical History: Reports: None Social & Family History - Family History Family Medical History: No Pertinent Family History - Tobacco Use Tobacco Use Status *Q: Never Tobacco User - Caffeine Use Caffeine Use: Reports: Coffee - Recreational Drug Use Recreational Drug Use: No ED ROS GENERAL - Review of Systems Review Of Systems: See Below Constitutional: Reports: Fever, Chills, Fatigue HEENT: Reports: No Symptoms Respiratory: Reports: Shortness of Breath, Wheezing, Cough. Denies: Sputum Cardiovascular: Reports: Palpitations (Tachycardia) Endocrine: Reports: No Symptoms GI/Abdominal: Reports: No Symptoms : Reports: No Symptoms Musculoskeletal: Reports: No Symptoms Skin: Reports: No Symptoms Neurological: Reports: Headache Psychiatric: Reports: No Symptoms Hematologic/Lymphatic: Reports: No Symptoms Immunologic: Reports: No Symptoms ED EXAM, GENERAL - Physical Exam Exam: See Below Exam Limited By: No Limitations General Appearance: Alert, Anxious, Moderate Distress Eye Exam: Bilateral Eye: EOMI, PERRL Throat/Mouth: Normal Inspection, Normal Lips, Normal Oropharynx, Normal Voice, No Airway Compromise Head: Atraumatic, Normocephalic Neck: Normal Inspection Respiratory/Chest: Decreased Breath Sounds (Decreased breath sounds especially in the bases), Wheezing (Inspiratory and expiratory wheezes), Accessory Muscle Use, Prolonged Expiration Cardiovascular: Normal Peripheral Pulses, Regular Rate, Rhythm, No Murmur, Tachycardia Peripheral Pulses: 2+: Radial (L), Radial (R) GI/Abdominal: Normal Bowel Sounds, Soft, Non-Tender Extremities: Normal Inspection, Normal Range of Motion, No Pedal Edema Neurological: Alert, Oriented, Normal Cognition, No Motor/Sensory Deficits Psychiatric: Normal Affect, Normal Mood Skin Exam: Warm, Dry, Intact, Normal Color Course - Vital Signs Last Recorded V/S: Last Vital Signs Temp 37.0 C 12/22/20 01:40 Pulse 133 H 12/22/20 01:40 Resp 22 H 12/22/20 01:40 BP 172/97 H 12/22/20 01:40 Pulse Ox 93 L 12/22/20 01:40 - Orders/Labs/Meds Orders: Active Orders 24 hr Category Date Time Status RT Aerosol Therapy [RC] ASDIRECTED Care 12/22/20 01:26 Active Chest 2V [CR] Stat Exams 12/22/20 01:26 Taken Sodium Chloride 0.9% [Saline Flush] Med 12/22/20 01:26 Active 10 ml FLUSH ASDIRECTED PRN Isolation [COMM] Stat Oth 12/22/20 01:27 Ordered Saline Lock Insert [OM.PC] Routine Oth 12/22/20 01:26 Ordered Medication Orders Sodium Chloride (Sodium Chloride 0.9% 10 Ml Syringe) 10 ml FLUSH ASDIRECTED PRN PRN Reason: Keep Vein Open Last Admin: 12/22/20 01:37 Dose: 10 ml Documented by: LEILA Labs: Laboratory Tests 12/22/20 12/22/20 12/22/20 Range/Units 01:46 01:47 01:47 WBC 8.9 (4.5-11.0) K/uL RBC 5.87 (4.30-5.90) M/uL Hgb 14.9 D (12.0-15.0) g/dL Hct 48.1 (40.0-54.0) % MCV 82 (80-98) fL MCH 25 L (27-31) pg MCHC 31 L (32-36) % Plt Count 234 (150-400) K/uL Neut % (Auto) 80.0 H (36-66) % Lymph % (Auto) 8.0 L (24-44) % [place] % (Auto) 9.9 H (2-6) % Eos % (Auto) 1.9 L (2-4) % Baso % (Auto) 0.2 (0-1) % Sodium 138 L (140-148) mmol/L Potassium 4.3 (3.6-5.2) mmol/L Chloride 100 (100-108) mmol/L Carbon Dioxide 29 (21-32) mmol/L Anion Gap 13.3 (5.0-14.0) mmol/L BUN 11 (7-18) mg/dL Creatinine 1.2 (0.8-1.3) mg/dL Est Cr Clr Drug Dosing 46.73 mL/min Estimated GFR (MDRD) 60 (>60) Glucose 106 (74-106) mg/dL Calcium 8.7 (8.5-10.1) mg/dL Total Bilirubin 0.4 D (0.2-1.0) mg/dL AST 26 (15-37) U/L ALT 33 (12-78) U/L Alkaline Phosphatase 73 (46-116) U/L Troponin I < 0.017 (0.000-0.056) ng/mL C-Reactive Protein 4.75 H (0.0-0.3) mg/dL Total Protein 6.4 (6.4-8.2) g/dL Albumin 3.1 L (3.4-5.0) g/dL Globulin 3.3 (2.3-3.5) g/dL Albumin/Globulin Ratio 0.9 L (1.2-2.2) Influenza Type A RNA Negative (NEGATIVE) RSV RNA (INAAT) Negative (NEGATIVE) Influenza Type B RNA Negative (NEGATIVE) SARS-CoV-2 RNA (MARGI) Negative (NEGATIVE) Meds: Medications Generic Name Dose Route Start Last Admin Trade Name Freq PRN Reason Stop Dose Admin Sodium Chloride 10 ml 12/22/20 01:26 12/22/20 01:37 Sodium Chloride 0.9% 10 Ml Syringe FLUSH 10 ml ASDIRECTED PRN Administration Keep Vein Open Discontinued Medications Generic Name Dose Route Start Last Admin Trade Name Freq PRN Reason Stop Dose Admin Albuterol/Ipratropium 3 ml 12/22/20 01:26 12/22/20 01:29 Albuterol/Ipratropium 3.0-0.5 Mg/3 Ml Neb Soln NEB 12/22/20 01:27 3 ml ONETIME ONE Administration Methylprednisolone Sodium Succinate 125 mg 12/22/20 01:26 12/22/20 01:37 Methylprednisolone Sodium Succinate 125 Mg/2 Ml Sdv IVPUSH 12/22/20 01:27 125 mg ONETIME ONE Administration - Radiology Interpretation Free Text/Narrative:: I reviewed the two-view chest x-ray showing hyperinflation of the lungs with flattening of the diaphragms. There are no acute infiltrates. Normal cardiac silhouette. This is consistent with COPD. - Re-Assessments/Exams Free Text/Narrative Re-Assessment/Exam: 12/22/20 02:58 I reviewed the patient's chest x-ray which shows no acute infiltrates but hyperinflation of the lungs with flattening of the diaphragms consistent with COPD. His labs show a leukocyte count of 8.9 with a hemoglobin of 14.9 and hematocrit of 48.1. Platelet count is 234,000. His comprehensive metabolic panel is unremarkable with a sodium of 138, potassium 4.3, chloride of 100, bicarbonate of 29, BUN of 11 with a creatinine of 1.2 and a glucose of 106. Patient C-reactive protein is elevated at 4.75. The patient is negative for influenza, RSV, or Covid 19. The patient was treated in ED with Solu-Medrol 125 mg IV push and a DuoNeb with some improvement in his breathing. He normally wears oxygen at home and presented here with his oxygen bottle at 1.5 L/min. He is increased up to 2 L/min in the ED to maintain oxygen saturation greater than 91%. The patient last gave himself a neb at 1030 which was almost 4 hours prior. This appears to be purely a COPD exacerbation with probable ac david on chronic bronchitis. 12/22/20 03:03 my plan is to put him on azithromycin instead of the doxycycline for acute on chronic bronchitis and to do a steroid prednisone taper over 10 days. He should continue to doing the nebs every 4 hours as needed. At this time does not appear that he requires hospitalization as he has home oxygen. Indications to return to the ED were discussed and he was discharged in satisfactory condition. Departure - Departure Time of Disposition: 03:17 Disposition: Home, Self-Care 01 Clinical Impression: COPD with exacerbation - Discharge Information Instructions: Chronic Obstructive Pulmonary Disease Exacerbation, [id number] Referrals: Bimal Tineo MD [Primary Care Provider] - Care Plan Goals: My plan is to put you on azithromycin (Z-Venu) with you taking 2 tablets today and then 1 tablet a day for the next 4 days. This not only is an antibiotic to treat the acute on chronic bronchitis, but it is also an anti-inflammatory decreasing the inflammation in the airways. In addition to continuing your nebulizer therapy every 4 hours as needed, we will also put you on a 10-day prednisone taper. Both the azithromycin and the prednisone are available in the [facility] machine in the [facility] so you may start them tonight. Should you develop any significant worsening in your symptoms please return for reevaluation. Your Covid and RSV/influenza test were negative and your chest x- ray did not show any evidence for pneumonia. Your blood work also looked good except your inflammatory markers were elevated again consistent with your COPD. Sepsis Event Note (ED) - Evaluation Sepsis Screening Result: Possible Sepsis Risk - Focused Exam Vital Signs: Vital Signs Temp Pulse Resp BP Pulse Ox 12/22/20 01:40 37.0 C 133 H 22 H 172/97 H 93 L 12/22/20 01:24 37.0 C 133 H 22 H 172/97 H 93 L - Problem List & Annotations (1) COPD with exacerbation SNOMED Code(s): 080811314 Code(s): J44.1 - CHRONIC OBSTRUCTIVE PULMONARY DISEASE W (ACUTE) EXACERBATION Status: Acute Priority: Medium Current Visit: Yes - Problem List Review Problem List Initiated/Reviewed/Updated: Yes - My Orders Last 24 Hours: My Active Orders 12/22/20 01:26 RT Aerosol Therapy [RC] ASDIRECTED Chest 2V [CR] Stat Sodium Chloride 0.9% [Saline Flush] 10 ml FLUSH ASDIRECTED PRN Saline Lock Insert [OM.PC] Routine 12/22/20 01:27 Isolation [COMM] Stat - Assessment/Plan Last 24 Hours: My Active Orders 12/22/20 01:26 RT Aerosol Therapy [RC] ASDIRECTED Chest 2V [CR] Stat Sodium Chloride 0.9% [Saline Flush] 10 ml FLUSH ASDIRECTED PRN Saline Lock Insert [OM.PC] Routine 12/22/20 01:27 Isolation [COMM] Stat
--- NOTE | 2020-12-23 09:19 | CR ---
CHEST: 2 view CLINICAL HISTORY:Dyspnea COMPARISON:CT September 2020 FINDINGS: The heart size, pulmonary vascularity and hilar structures are normal. No infiltrate effusion or pneumothorax is seen. There are atherosclerotic changes in the aorta.. There is a large hiatal hernia. Lungs are mildly hyperaerated IMPRESSION: No acute cardiopulmonary process. Hyperaeration
== END 2020-12-22 03:29 | disposition home or self-care (01) ==
LOC: JP.ED 01:15
DX: J44.1 Chronic obstructive pulmonary disease with (acute) exacerbation (principal); E78.00 Pure hypercholesterolemia, unspecified; K21.9 Gastro-esophageal reflux disease without esophagitis; Z88.0 Allergy status to penicillin; Z88.5 Allergy status to narcotic agent; Z88.8 Allergy status to other drugs, medicaments and biological substances; Z91.018 Allergy to other foods; Z91.09 Other allergy status, other than to drugs and biological substances; Z79.82 Long term (current) use of aspirin; Z79.899 Other long term (current) drug therapy; Z20.822 Contact with and (suspected) exposure to COVID-19
CPT/HCPCS: 0241U; 36415; 71046; 80053; 84484; 85025; 86140; 94640; 96374; 99285; J2930; J7620-GY

== ENCOUNTER 2022-01-19 06:20 | Day surgery (SDC) | payer MEDICARE ==
[2022-01-19] MEDS ORDERED: Dextrose 5%-Lactated Ringers 1,000 ML IV SCH (07:00)
[2022-01-19] MEDS ORDERED: Albuterol/Ipratropium 3.0-0.5 MG/3 ML Neb Soln NEB ONE (07:00)
[2022-01-19] MEDS ORDERED: predniSONE 10 MG Tab PO ONE (07:30)
[2022-01-19] MEDS ORDERED: fentaNYL 100 MCG/2 ML SDV ONE (07:47)
[2022-01-19] MEDS ORDERED: Propofol 200 MG/20 ML SDV ONE (07:47)
[2022-01-19 09:43] VITALS: BP 134/63; PULSE 70
== END 2022-01-19 09:46 | disposition home or self-care (01) ==
LOC: JP.SDS 06:20
PROVIDERS: ATTEND Surgery
DX: K21.9 Gastro-esophageal reflux disease without esophagitis (principal); K31.A0 Gastric intestinal metaplasia, unspecified; J44.9 Chronic obstructive pulmonary disease, unspecified; Z88.8 Allergy status to other drugs, medicaments and biological substances; Z88.0 Allergy status to penicillin; Z88.5 Allergy status to narcotic agent; Z88.6 Allergy status to analgesic agent; Z88.1 Allergy status to other antibiotic agents; Z91.013 Allergy to seafood; Z91.018 Allergy to other foods; Z91.048 Other nonmedicinal substance allergy status
CPT/HCPCS: 43239; 94640; J2704; J3010; J7121; J7512; 88305; J7620

== ENCOUNTER 2022-05-07 07:59 | Day surgery (SDC) | payer MEDICARE ==
[2022-05-07 08:47] LABS: ESTIMATED GFR 71 mL/min (>60)
[2022-05-07] MEDS ORDERED: methylPREDNISolone Sodium Succinate 125 MG/2 ML SDV IVPUSH ONE (08:52)
[2022-05-07] MEDS: Nozin Nasal Sanitizer NASBOTH SCH ×2 (09:01→21:46)
[2022-05-07] MEDS ORDERED: Lactated Ringers 1,000 ML IV SCH (09:30)
[2022-05-07] MEDS ORDERED: fentaNYL 250 MCG/5 ML SDV ONE (09:37)
[2022-05-07] MEDS ORDERED: Ondansetron 4 MG/2 ML SDV ONE (09:38)
[2022-05-07] MEDS ORDERED: Propofol 200 MG/20 ML SDV ONE (09:38)
[2022-05-07] MEDS ORDERED: Rocuronium 50 MG/5 ML Vial ONE (09:38)
[2022-05-07] MEDS ORDERED: Glycopyrrolate 0.2 MG/ML 5 ML MDV ONE (09:38)
[2022-05-07] MEDS ORDERED: Neostigmine Methylsulfate 1 MG/ML 5 ML Syringe ONE (09:38)
[2022-05-07] MEDS ORDERED: Succinylcholine 200 MG/10 ML MDV ONE (09:38)
[2022-05-07] MEDS ORDERED: Bupivacaine 0.5% 30 ML SDV ONE ×2 (09:41→10:35)
[2022-05-07] MEDS ORDERED: Sodium Chloride 0.9% 10 ML ONE (12:30)
[2022-05-07] MEDS ORDERED: Phenylephrine 1% 10 MG/ML SDV ONE (12:30)
[2022-05-07] MEDS ORDERED: Lactated Ringers 1,000 ML ONE (13:02)
[2022-05-07] MEDS ORDERED: Ondansetron 4 MG/2 ML SDV IVPUSH PRN (14:11)
[2022-05-07] MEDS ORDERED: Acetaminophen 325 MG Tab PO PRN (14:11)
[2022-05-07] MEDS ORDERED: Magnesium Hydroxide 400 MG/5 ML Susp 30 ML Cup PO PRN (14:11)
[2022-05-07] MEDS ORDERED: Sodium Chloride 0.9% 1,000 ML IV SCH (14:15)
[2022-05-07] MEDS ORDERED: Albuterol 0.083% 2.5 MG/3 ML Neb Soln INH PRN (14:16)
[2022-05-07] MEDS ORDERED: Loratadine 10 MG Tab PO PRN (14:20)
[2022-05-07] MEDS ORDERED: oxyCODONE 5 MG Tab PO PRN (17:29)
[2022-05-07] MEDS ORDERED: hydrOXYzine HCl 25 MG Tab PO PRN (17:30)
[2022-05-07] MEDS: traMADol 50 MG Tab PO PRN (19:54)
[2022-05-07] MEDS ORDERED: Nozin Nasal Sanitizer NASBOTH SCH (21:00)
[2022-05-08] MEDS: traMADol 50 MG Tab PO PRN ×3 (01:09→12:33)
[2022-05-08] MEDS: Ketorolac 30 MG/ML SDV IVPUSH SCH ×2 (05:38→13:11)
[2022-05-08] MEDS ORDERED: Tiotropium Bromide 4 GM Inhalation Spray (2.5mcg/1 dose; 10 doses) INH SCH (07:00)
[2022-05-08] MEDS ORDERED: Formoterol/Mometasone 100-5 MCG 8.8 GM Inhaler IH SCH (07:00)
[2022-05-08] MEDS ORDERED: Pantoprazole 40 MG Tab.CR PO SCH (07:30)
[2022-05-08] MEDS: Nozin Nasal Sanitizer NASBOTH SCH (08:05)
[2022-05-08] MEDS ORDERED: Docusate Sodium 100 MG Cap PO SCH (09:00)
[2022-05-08] MEDS ORDERED: Non-Formulary Medication 1 Each (Fluticasone/Umeclidin/Vilanter [Trelegy Ellipta 100-62.5- IH SCH (09:00)
[2022-05-08] MEDS ORDERED: predniSONE 10 MG Tab PO SCH (09:00)
[2022-05-08] MEDS ORDERED: amLODIPine 5 MG Tab PO SCH (09:00)
[2022-05-08 10:45] VITALS: BP 108/44; PULSE 94
[2022-05-09] MEDS ORDERED: Rosuvastatin 5 MG Tab PO SCH (09:00)
[2022-05-13] MEDS ORDERED: Doxycycline 100 MG Cap PO SCH (09:00)
== END 2022-05-08 14:20 | disposition home or self-care (01) ==
LOC: JP.SDS 07:59 → JP.MS 14:11 → JP.SDS 05-08 14:20
PROVIDERS: ATTEND Specialist
DX: M12.811 Other specific arthropathies, not elsewhere classified, right shoulder (principal); K21.9 Gastro-esophageal reflux disease without esophagitis; E78.5 Hyperlipidemia, unspecified; J44.9 Chronic obstructive pulmonary disease, unspecified; N40.1 Benign prostatic hyperplasia with lower urinary tract symptoms; J45.909 Unspecified asthma, uncomplicated; Z88.0 Allergy status to penicillin; Z88.5 Allergy status to narcotic agent; Z88.8 Allergy status to other drugs, medicaments and biological substances; Z79.82 Long term (current) use of aspirin; Z79.899 Other long term (current) drug therapy
CPT/HCPCS: 23472; 36415; 73020; 80053; 85027; 94640; 97110; 97161; 97165; 97530; 97535; A9270; C1713; C1776; J0330; J1885; J2370; J2405; J2704; J2710; J2930; J3010; J3490; J7030; J7120; J7512

== ENCOUNTER 2022-09-11 18:41 | Emergency (ER) | payer MEDICARE ==
[2022-09-11 19:04] VITALS: BP 150/79; PULSE 96
[2022-09-11] MEDS ORDERED: Bacitracin Oint 1 GM U/D Packet TOP ONE (19:27)
[2022-09-11] MEDS ORDERED: Lidocaine 1% with EPINEPHrine 1:100,000 50 ML MDV SUBCUT STA (19:27)
== END 2022-09-11 20:28 | disposition home or self-care (01) ==
LOC: JP.ED 18:41
DX: S61.412A Laceration without foreign body of left hand, initial encounter (principal); E78.00 Pure hypercholesterolemia, unspecified; J44.9 Chronic obstructive pulmonary disease, unspecified; Z88.5 Allergy status to narcotic agent; Z91.018 Allergy to other foods; Z88.0 Allergy status to penicillin; Z88.8 Allergy status to other drugs, medicaments and biological substances; Z79.899 Other long term (current) drug therapy; Z87.891 Personal history of nicotine dependence; W26.8XXA Contact with other sharp object(s), not elsewhere classified, initial encounter
CPT/HCPCS: 12001; 99282

== ENCOUNTER 2023-04-17 07:04 | Day surgery (SDC) | payer MEDICARE ==
[2023-04-17] MEDS ORDERED: fentaNYL 100 MCG/2 ML SDV ONE (07:21)
[2023-04-17] MEDS ORDERED: Midazolam 1 MG/ML 2 ML SDV ONE (07:21)
[2023-04-17] MEDS ORDERED: Propofol 200 MG/20 ML SDV ONE (07:21)
[2023-04-17 07:29] LABS: HEMATOCRIT 45.9 % (38.4-49.7); HEMOGLOBIN 14.7 g/dL (12.9-16.9); MEAN CORPUSCULAR HEMOGLOBIN 27.9 pg (31.6-35.5); MEAN CORPUSCULAR VOLUME 87.3 fL (81.4-99.0); RED BLOOD CELL COUNT 5.26 M/uL (4.14-5.76); WHITE BLOOD CELL COUNT,WBC 7.6 K/uL (3.2-11.0)
[2023-04-17 07:50] LABS: A/G RATIO 1.1 (1.2-2.2); ALANINE AMINOTRANSFERASE,ALT 20 U/L (12-78); ALBUMIN 3.6 g/dL (3.4-5.0); ALKALINE PHOSPHATASE 85 U/L (46-116); ANION GAP 9.2 mmol/L (5.0-14.0); ASPARTATE AMNIOTRANSFERASE,AST 18 U/L (15-37); BILIRUBIN TOTAL 0.4 mg/dL (0.2-1.0); BLOOD UREA NITROGEN,BUN 16 mg/dL (7-18); CALCIUM 9.1 mg/dL (8.5-10.1); CARBON DIOXIDE,CO2 30 mmol/L (21-32); CHLORIDE,CL 108 mmol/L (100-108); EST CRCL DRUG DOSING (CG) 57.14 mL/min; ESTIMATED GFR 79 mL/min (>60); GLUCOSE RANDOM 88 mg/dL (74-106); POTASSIUM,K 3.9 mmol/L (3.6-5.2); PROTEIN TOTAL,TP 6.8 g/dL (6.4-8.2); SODIUM,NA 147 mmol/L (140-148)
[2023-04-17] MEDS ORDERED: Lactated Ringers 1,000 ML IV SCH (08:00)
[2023-04-17] MEDS: Nozin Nasal Sanitizer NASBOTH SCH ×2 (08:04→21:28)
[2023-04-17] MEDS ORDERED: ceFAZolin 2 GM in Sodium Chloride 0.9% 50 ML IV ONE (08:15)
[2023-04-17] MEDS ORDERED: Tranexamic Acid 720 MG in Sodium Chloride 0.9% 50 ML IV ONE (08:45)
[2023-04-17] MEDS ORDERED: Ondansetron 4 MG/2 ML SDV IVPUSH PRN (09:22)
[2023-04-17] MEDS ORDERED: Magnesium Hydroxide 400 MG/5 ML Susp 30 ML Cup PO PRN (09:22)
[2023-04-17] MEDS ORDERED: Docusate Sodium 100 MG Cap PO PRN (09:22)
[2023-04-17] MEDS ORDERED: FEXOFENADINE 60 MG PO PRN (09:26)
[2023-04-17] MEDS ORDERED: ceFAZolin 2 GM in Sodium Chloride 0.9% 100 ML IV SCH (09:30)
[2023-04-17] MEDS ORDERED: Cholecalciferol (Vitamin D3) 25 MCG Tab PO SCH (09:30)
[2023-04-17] MEDS ORDERED: Bupivacaine 0.5% 50 ML MDV ONE (11:10)
[2023-04-17] MEDS ORDERED: Rosuvastatin 5 MG Tab PO SCH (14:00)
[2023-04-17] MEDS ORDERED: Loratadine 10 MG Tab PO PRN (14:04)
[2023-04-17] MEDS: HYDROmorphone 2 MG Tab PO PRN ×3 (14:37→21:27)
[2023-04-17] MEDS: Morphine 2 MG/ML SYRINGE IVPUSH PRN ×2 (15:55→18:03)
[2023-04-17] MEDS: Acetaminophen 325 MG Tab PO SCH ×2 (15:56→21:27)
[2023-04-17] MEDS: Sodium Chloride 0.9% 1,000 ML IV SCH (15:57)
[2023-04-17] MEDS: ceFAZolin 2 GM in Sodium Chloride 0.9% 50 ML IV SCH (17:42)
[2023-04-17] MEDS: Albuterol 0.083% 2.5 MG/3 ML Neb Soln INH PRN (19:06)
[2023-04-17] MEDS ORDERED: Nozin Nasal Sanitizer NASBOTH SCH (21:00)
[2023-04-17] MEDS: Aspirin 325 MG Tab.EC PO SCH (21:27)
[2023-04-18] MEDS: HYDROmorphone 2 MG Tab PO PRN ×4 (00:42→10:51)
[2023-04-18] MEDS: Sodium Chloride 0.9% 1,000 ML IV SCH (01:18)
[2023-04-18] MEDS: ceFAZolin 2 GM in Sodium Chloride 0.9% 50 ML IV SCH ×2 (01:18→10:23)
[2023-04-18] MEDS: Acetaminophen 325 MG Tab PO SCH ×2 (04:05→10:29)
[2023-04-18 05:39] VITALS: BP 136/69; PULSE 98
[2023-04-18] MEDS ORDERED: TRELEGY ELLIPTA INH SCH (07:00)
[2023-04-18] MEDS: Albuterol 0.083% 2.5 MG/3 ML Neb Soln INH PRN (07:07)
[2023-04-18] MEDS ORDERED: NEXIUM 20 MG PO SCH (07:30)
[2023-04-18] MEDS: Nozin Nasal Sanitizer NASBOTH SCH (08:45)
[2023-04-18] MEDS: Aspirin 325 MG Tab.EC PO SCH (08:46)
[2023-04-18] MEDS ORDERED: Cholecalciferol (Vitamin D3) 25 MCG Tab PO SCH (09:00)
[2023-04-18] MEDS ORDERED: Non-Formulary Medication 1 Each (Prednisone [Prednisone] 10 MG Tablet) PO SCH (09:00)
[2023-04-18] MEDS ORDERED: UBIDECARENONE 10 MG PO SCH (09:00)
[2023-04-18] MEDS ORDERED: Non-Formulary Medication 1 Each (Fluticasone/Umeclidin/Vilanter [Trelegy Ellipta 100-62.5- PO SCH (09:00)
[2023-04-18] MEDS ORDERED: predniSONE 5 MG Tab PO SCH (09:00)
[2023-04-18] MEDS ORDERED: ESOMEPRAZOLE 20 MG PO SCH (09:00)
== END 2023-04-18 12:18 | disposition home or self-care (01) ==
LOC: JP.SDS 07:04 → JP.MS 09:23 → JP.SDS 04-18 12:18
PROVIDERS: ATTEND Specialist
DX: M17.12 Unilateral primary osteoarthritis, left knee (principal); R91.1 Solitary pulmonary nodule; R07.81 Pleurodynia; J44.1 Chronic obstructive pulmonary disease with (acute) exacerbation; F17.200 Nicotine dependence, unspecified, uncomplicated; Z91.013 Allergy to seafood; Z88.0 Allergy status to penicillin; Z01.818 Encounter for other preprocedural examination; Z88.8 Allergy status to other drugs, medicaments and biological substances; Z88.5 Allergy status to narcotic agent
CPT/HCPCS: 27447; 36415; 73030; 73560; 80053; 85027; 94640; 97110; 97116; 97161; A9270; C1713; C1776; J0690; J2250; J2270; J2704; J3010; J3490; J7030; J7120; J7512

== ENCOUNTER 2024-07-29 10:41 | Emergency (ER) | payer OTHER, MEDICARE ==
[2024-07-29 11:26] LABS: BASOPHILS ABSOLUTE AUTO 0.04 K/uL (0.00-0.10); BASOPHILS PERCENT AUTO 0.3 % (0.1-1.3); EOSINOPHILS ABSOLUTE AUTO 0.08 K/uL (0.00-0.40); EOSINOPHILS PERCENT AUTO 0.7 % (0.0-5.4); IMMATURE GRAN ABSOLUTE AUTO 0.09 K/uL (0.00-0.23); IMMATURE GRAN PERCENT AUTO 0.8 % (0.0-0.7); LYMPHOCYTES ABSOLUTE AUTO 0.81 K/uL (0.8-3.3); MEAN CORPUSCULAR HEMOGLOBIN 28.5 pg (31.6-35.5); MEAN CORPUSCULAR HGB CONC 32.6 g/dL (31.6-35.5); MEAN CORPUSCULAR VOLUME 87.3 fL (81.4-99.0); MONOCYTES ABSOLUTE AUTO 0.56 K/uL (0.20-0.90); MONOCYTES PERCENT AUTO 4.9 % (3.3-12.6); NEUTROPHILS ABSOLUTE AUTO 9.95 K/uL (1.0-7.6); NEUTROPHILS PERCENT AUTO 86.3 % (40.0-78.1); PLATELET COUNT,PLT 289 K/uL (130-375); RED BLOOD CELL COUNT 5.27 M/uL (4.14-5.76); WHITE BLOOD CELL COUNT,WBC 11.5 K/uL (3.2-11.0)
[2024-07-29] MEDS: Proparacaine 0.5% Ophth Soln 15 ML Bottle EYEBOTH ONE (11:30)
[2024-07-29] MEDS: Cyclobenzaprine 10 MG Tab PO ONE (11:30)
[2024-07-29 11:48] LABS: A/G RATIO 1.2 (1.2-2.2); ALANINE AMINOTRANSFERASE,ALT 21 U/L (12-78); ALBUMIN 3.7 g/dL (3.4-5.0); ALKALINE PHOSPHATASE 73 U/L (46-116); ANION GAP 9.9 mmol/L (5.0-14.0); ASPARTATE AMNIOTRANSFERASE,AST 22 U/L (15-37); BILIRUBIN TOTAL 0.7 mg/dL (0.2-1.0); BLOOD UREA NITROGEN,BUN 18 mg/dL (7-18); CALCIUM 9.3 mg/dL (8.5-10.1); CARBON DIOXIDE,CO2 24 mmol/L (21-32); CHLORIDE,CL 106 mmol/L (100-108); EST CRCL DRUG DOSING (CG) 66.53 mL/min; ESTIMATED GFR 79 mL/min (>60); GLUCOSE RANDOM 103 mg/dL (74-106); POTASSIUM,K 4.7 mmol/L (3.6-5.2); PROTEIN TOTAL,TP 6.8 g/dL (6.4-8.2); SODIUM,NA 140 mmol/L (140-148)
[2024-07-29] MEDS ORDERED: Iopamidol 612 MG/ML 100 ML Bottle IV SCH (12:15)
[2024-07-29] MEDS ORDERED: Sodium Chloride 0.9% 80 ML IV SCH (12:15)
[2024-07-29 13:38] VITALS: BP 142/85; PULSE 82
== END 2024-07-29 14:50 | disposition home or self-care (01) ==
LOC: JP.ED 10:41
DX: S22.089A Unspecified fracture of T11-T12 vertebra, initial encounter for closed fracture (principal); E78.00 Pure hypercholesterolemia, unspecified; J44.89 Other specified chronic obstructive pulmonary disease; Z88.5 Allergy status to narcotic agent; Z88.0 Allergy status to penicillin; Z88.6 Allergy status to analgesic agent; Z88.1 Allergy status to other antibiotic agents; Z91.013 Allergy to seafood; Z91.018 Allergy to other foods; Z91.048 Other nonmedicinal substance allergy status; Z79.82 Long term (current) use of aspirin; Z79.51 Long term (current) use of inhaled steroids; Z79.899 Other long term (current) drug therapy; V49.49XA Driver injured in collision with other motor vehicles in traffic accident, initial encounter; Y93.89 Activity, other specified
CPT/HCPCS: 36415; 70450; 71260; 72125; 73130; 73562; 74177; 76377; 80053; 83605; 85025; 99284; A9270

== ENCOUNTER 2024-10-03 10:05 | Emergency (ER) | payer MEDICARE, OTHER ==
[2024-10-03] MEDS: Acetaminophen 500 MG Tab PO ONE (11:11)
[2024-10-03 11:16] LABS: BASOPHILS ABSOLUTE AUTO 0.06 K/uL (0.00-0.10); BASOPHILS PERCENT AUTO 0.5 % (0.1-1.3); EOSINOPHILS ABSOLUTE AUTO 0.13 K/uL (0.00-0.40); HEMATOCRIT 43.3 % (38.4-49.7); HEMOGLOBIN 13.8 g/dL (12.9-16.9); IMMATURE GRAN ABSOLUTE AUTO 0.12 K/uL (0.00-0.23); LYMPHOCYTES ABSOLUTE AUTO 0.23 K/uL (0.8-3.3); LYMPHOCYTES PERCENT AUTO 1.8 % (11.4-47.7); MEAN CORPUSCULAR HEMOGLOBIN 28.7 pg (31.6-35.5); MEAN CORPUSCULAR HGB CONC 31.9 g/dL (31.6-35.5); MONOCYTES ABSOLUTE AUTO 0.59 K/uL (0.20-0.90); MONOCYTES PERCENT AUTO 4.7 % (3.3-12.6); NEUTROPHILS ABSOLUTE AUTO 11.38 K/uL (1.0-7.6); PLATELET COUNT,PLT 197 K/uL (130-375); RED BLOOD CELL COUNT 4.81 M/uL (4.14-5.76); WHITE BLOOD CELL COUNT,WBC 12.5 K/uL (3.2-11.0)
[2024-10-03 11:46] LABS: A/G RATIO 0.9 (1.2-2.2); ALANINE AMINOTRANSFERASE,ALT 27 U/L (12-78); ALBUMIN 2.9 g/dL (3.4-5.0); ALKALINE PHOSPHATASE 73 U/L (46-116); ANION GAP 8.6 mmol/L (5.0-14.0); ASPARTATE AMNIOTRANSFERASE,AST 18 U/L (15-37); BILIRUBIN TOTAL 0.4 mg/dL (0.2-1.0); BLOOD UREA NITROGEN,BUN 12 mg/dL (7-18); CALCIUM 8.9 mg/dL (8.5-10.1); CARBON DIOXIDE,CO2 28 mmol/L (21-32); CHLORIDE,CL 105 mmol/L (100-108); CREATININE 1.1 mg/dL (0.8-1.3); EST CRCL DRUG DOSING (CG) 50.47 mL/min; ESTIMATED GFR 70 mL/min (>60); GLUCOSE RANDOM 105 mg/dL (74-106); POTASSIUM,K 4.3 mmol/L (3.6-5.2); SODIUM,NA 142 mmol/L (140-148)
[2024-10-03 13:06] VITALS: BP 115/63; PULSE 88
== END 2024-10-03 14:01 | disposition home or self-care (01) ==
LOC: JP.ED 10:05
DX: R51.9 Headache, unspecified (principal); E78.00 Pure hypercholesterolemia, unspecified; J44.9 Chronic obstructive pulmonary disease, unspecified; K21.9 Gastro-esophageal reflux disease without esophagitis; Z79.899 Other long term (current) drug therapy; Z79.82 Long term (current) use of aspirin; Z88.8 Allergy status to other drugs, medicaments and biological substances; Z88.0 Allergy status to penicillin; Z88.5 Allergy status to narcotic agent; Z88.6 Allergy status to analgesic agent; Z91.018 Allergy to other foods; Z91.013 Allergy to seafood
CPT/HCPCS: 36415; 70450; 80053; 83735; 84484; 85025; 93005; 99285; A9270